=== PATIENT | female | born 1945 | race Caucasian/White ===

== ENCOUNTER → 2019-10-24 10:58 | Outpatient (BNVA) | payer MEDICARE, SELFPAY | PROVIDERS: Family Provider Internal Medicine; PCP Internal Medicine; Visit Provider Otolaryngology | DX: R13.10 Dysphagia, unspecified (principal) | CPT/HCPCS: 99203; 99214 ==

== ENCOUNTER 2019-10-26 09:14 | Outpatient (CLI) | payer MEDICARE, SELFPAY ==
--- NOTE | 2019-10-26 09:34 | FL_ITS ---
WS: [id number] FL barium swallow modifd [id number] REASON FOR EXAM: Oropharyngeal dysphagia FLUOROSCOPY TIME: 2 minutes FINDINGS: Fluoroscopy was performed for speech pathology please see their workup. The barium capsule appeared to hang up at the distal esophageal junction. It finally passed normally. FL/FL barium swallow modifd [id number] IMPRESSION: Fluoroscopy performed for speech pathology.
== END 2019-10-26 09:15 | disposition home or self-care (01) ==
LOC: US 09:18
PROVIDERS: Family Provider Internal Medicine; PCP Internal Medicine; Visit Provider Internal Medicine
DX: R13.12 Dysphagia, oropharyngeal phase (principal)
CPT/HCPCS: 74230; 92611

== ENCOUNTER → 2019-10-30 09:29 | Outpatient (BNVA) | payer MEDICARE, SELFPAY | PROVIDERS: Family Provider Internal Medicine; PCP Internal Medicine; Visit Provider Otolaryngology | DX: R13.10 Dysphagia, unspecified (principal) | CPT/HCPCS: 99213; 99214 ==

== ENCOUNTER 2020-10-20 15:44 | Observation (INO) | payer MEDICARE, SELFPAY ==
[2020-10-20] VITALS (8 sets, daily range): BP systolic 170–220; BP diastolic 60–73; PULSE 61–82; RESP 18–25; O2SAT 94–99; BMI 36.3
--- NOTE | 2020-10-20 15:55 | XRR_ITS ---
PROCEDURE INFORMATION: Exam: XR Chest Exam date and time: 10/20/2020 4:08 PM Age: 75 years old Clinical indication: Chest pain TECHNIQUE: Imaging protocol: XR of the chest Views: 1 view. COMPARISON: [facility] Chest 2 views 08/03/2019 2:15 PM FINDINGS: Lungs: Chronic calcified granuloma at the left lung base stable from prior. No pulmonary consolidation. Pleural spaces: Unremarkable. No pleural effusion. No pneumothorax. Heart/Mediastinum: Mild cardiac enlargement. Prior CABG. Bones/joints: Unremarkable. XR/XR chest 1V portable [id number] IMPRESSION: 1. No acute chest abnormality. 2. No change from comparison on 08/03/2019.
--- NOTE | 2020-10-20 15:55 | ECG_ITS ---
[facility] Test Date: 2020-10-20 Pat Name: Jane Castillo Department: Room: Gender: Female Motor Vehicle Examiner: : 1945 Requested By: Mgiuel Siegel Order Number: [id number] Humaira MD: Meño Conde M.D. Measurements Intervals [place] Rate: 63 P: 69 PA: 212 QRS: 45 QRSD: 144 T: -74 QT: 451 QTc: 464 Interpretive Statements SINUS RHYTHM WITH FIRST DEGREE AV BLOCK RIGHT BUNDLE BRANCH BLOCK [120+ ms QRS DURATION, UPRIGHT V1, 40+ ms S IN I/aVL/V4/V5/V6] SEPTAL MYOCARDIAL INFARCTION , PROBABLY OLD [40+ ms Q WAVE IN V1/V2] MODERATE T-WAVE ABNORMALITY, CONSIDER INFERIOR ISCHEMIA [-0.1+ mV T WAVE IN II/aVF] Compared to ECG 07/01/2019 23:51:05 First degree AV block now present Myocardial infarct finding now present T-wave abnormality now present Possible ischemia now present Right-axis deviation no longer present Electronically Signed On 10-20-2020 16:57:27 CIRCUIT JUDGE by Meño Conde M.D. [id number]
--- NOTE | 2020-10-20 16:10 | W.ED.CHESTPA ---
HPI - Chest Pain General: Chief Complaint: Chest Pain Stated Complaint: Tighness of chest/short of breath Time Seen by Provider: 10/20/20 15:47 Source: patient and family Mode of arrival: ambulatory Limitations: no limitations History of Present Illness: HPI narrative: Patient is a 75-year-old female who presents to the ER with complaint primarily of just not feeling well. She is somewhat anxious and tearful on unable to provide any significant history. She repeatedly states she just has not felt well today. She was recently discharged from [facility] in the middle of last week for what sounds like a run of atrial fibrillation. She had some medication changes and was added on dofetilide. She has not been able to sleep well the last several days that she attributes to starting this new medication and the fact that they stopped her trazodone. Patient does not really endorse any specific chest pain to me per se but states she just does not feel well. She does have some exertional dyspnea and the daughter states that she was very out of breath when walking earlier. She apparently told the daughter that she did not feel well about 45 minutes before arrival. MD complaint: chest heaviness and chest discomfort Pertinent past history: coronary artery disease and CABG Onset (ago): hour(s) (1) Prior episodes: Yes Pain radiation: none Severity: moderate Quality: other (Generally feeling unwell) Exacerbating factors: nothing Context: recent illness and new medications Associated symptoms: Reports dyspnea; Deny abdominal pain, diaphoresis, fever(s), nausea, palpitations, syncope or vomiting Review of Systems General: Reports: 10 or more systems reviewed and unremarkable except in HPI and below Const: Reports: fatigue; Denies: fever(s), malaise or diaphoresis Card: Reports: irregular heart rhythm and dyspnea on exertion; Denies: palpitations or syncope Resp: Reports: dyspnea GI: Denies: abdominal pain, nausea or vomiting Musc: Denies: back pain Skin/Breast: Denies: rash Neuro: Denies: headache(s) or confusion [facility] ED PFSH: Medical History (Updated 10/20/20 @ 20:19 by Miguel Siegel MD) Atrial fibrillation On Eliquis and dofetilide CAD (coronary artery disease) CHF (congestive heart failure), NYHA class I Choking Modified barium swallow normal Diabetes Fatty liver Incisional hernia Sleep apnea Type 2 diabetes mellitus Surgical History (Updated 10/20/20 @ 20:07 by Mason Diop MD) H/O: hysterectomy Endometrial cancer History of appendectomy History of incisional hernia repair (~2016) Hx of CABG S/P CABG x [address] Vaz in [place] 2006 CABG S/P cholecystectomy S/P colonoscopy S/P LASIK surgery of both eyes Family History Other CAD (coronary artery disease) Diabetes Social History Smoking and tobacco status: never smoked Alcohol intake: never Physical Exam Const: COMMON NORMALS: average body habitus, alert and well nourished GENERAL APPEARANCE: cooperative and anxious; not in distress ORIENTATION/CONSCIOUSNESS: Yes awake HENMT: COMMON NORMALS: normocephalic, atraumatic and Normal external nose present HEAD & SCALP: normocephalic and atraumatic NOSE: Normal external nose present MOUTH: Normal oral and palatal mucosa present Eye: COMMON NORMALS: EOMs intact bilaterally and conjunctivae normal CONJUNCTIVA: Yes conjunctivae normal Neck/C-Spine: GENERAL: Yes normal visual inspection, No tracheal deviation and No submandibular swelling Chest: COMMONS NORMALS: normal inspection of the chest Resp: COMMON NORMALS: normal respiratory effort, No retractions and No use of accessory muscles Cardio: COMMON NORMALS: regular rhythm and Peripheral pulses 2+ throughout RHYTHM: regular rhythm PERIPHERAL PULSES: Peripheral pulses 2+ throughout GI: COMMON NORMALS: Normal to inspection, nondistended, normoactive bowel sounds present, Soft to palpation and non-tender PALPATION: Yes Soft to palpation Extremity: COMMON NORMALS: normal to inspection and full ROM Neuro: COMMON NORMALS: no focal motor deficits SENSORIUM/ORIENTATION: Yes alert Skin: COMMON NORMALS: no rashes or lesions noted GENERAL SKIN EXAM: no rashes or lesions noted Course ED course: 75-year-old female who has generalized complaints of feeling unwell. She does admit to having some chest heaviness earlier. She is primarily concerned with some palpitations. Her EKG is sinus rhythm with a first-degree AV block and right bundle branch block. She has not had any visible dysrhythmias on the monitor but has been persistently hypertensive here. She has received 3 doses of hydralazine to try to control her blood pressure but it continues to increase up to the 190s over 60s. She has had some recurrence of chest discomfort while here and states she feels like she can feel her heart throbbing in her chest and ears and fingers. Given her recurrent discomfort, uncontrolled hypertension, we will go ahead and admit for observation. Hospitalist has been consulted. Vital Signs: Vital signs: Vital Signs Pulse Rate 66 10/20/20 18:22 Respiratory Rate 20 H 10/20/20 18:22 Blood Pressure 197/73 10/20/20 18:22 Pulse Oximetry 95 10/20/20 18:22 MDM - Chest Pain Lab Data: Labs: Lab Results 10/20/20 10/20/20 10/20/20 Range/Units 16:09 16:09 16:09 WBC 7.1 (4.0-10.0) 10^3/ uL RBC 4.38 (4.1-5.3) 10^6/u L Hgb 12.2 (11.5-15.3) g/dL Hct 39.0 (37.0-47.0) % MCV 89.0 (81-99) fL MCH 27.9 L (28.0-34.0) pg MCHC 31.3 (30.0-36.0) g/dL RDW 14.4 (12.1-15.1) % Plt Count 394 (130-400) 10^3/c mm MPV 11.2 H (7.4-10.4) fL Neut % (Auto) 57.7 % Lymph % (Auto) 26.8 % Snyder % (Auto) 10.2 % Eos % (Auto) 3.4 % Baso % (Auto) 1.3 % Neut # (Auto) 4.13 (1.8-7.7) 10^3/u L Lymph # (Auto) 1.9 (0.8-4.8) 10^3/u L Snyder # (Auto) 0.7 (0.2-0.9) 10^3/u L Eos # (Auto) 0.2 (0.0-0.8) 10^3/u L Baso # (Auto) 0.1 (0.0-0.1) 10^3/u L Nucleated RBC % (a uto) 0 % Nucleated RBCs # 0.0 /100WBC PT 16.00 H (12.1-14.9) SECO NDS INR 1.24 H (0.8-1.2) APTT 37.2 H (23.9-36.7) SECO NDS Sodium 137 (136-145) mmol/L Potassium 4.6 (3.5-5.1) mmol/L Chloride 93 L (98-107) mmol/L Carbon Dioxide 31 H (22-29) mmol/L Anion Gap 17.6 (5-19) BUN 29 H (8-23) mg/dL Creatinine 1.1 H (0.5-0.9) mg/dL GFR Calculation Not Reportable Glucose 121 H (65-115) mg/dL Calculated Osmolal ity 291 (285-295) mOsm/k g Calcium 10.1 (8.5-10.5) mg/dL Total Bilirubin 0.3 (0.15-1.2) mg/dL AST 20 (0-32) U/L ALT 16 (0-33) U/L Alkaline Phosphata se 59 (35-105) IU/L Troponin T Baselin e (0-10) ng/L NT-Pro-B Natriuret Pep 1772 H (0-450) pg/mL Total Protein 7.4 (6.6-8.7) g/dL Albumin 4.5 (3.5-5.2) g/dL Globulin 2.9 (1.3-4.6) g/dL 10/20/20 Range/Units 16:09 WBC (4.0-10.0) 10^3/ uL RBC (4.1-5.3) 10^6/u L Hgb (11.5-15.3) g/dL Hct (37.0-47.0) % MCV (81-99) fL MCH (28.0-34.0) pg MCHC (30.0-36.0) g/dL RDW (12.1-15.1) % Plt Count (130-400) 10^3/c mm MPV (7.4-10.4) fL Neut % (Auto) % Lymph % (Auto) % Snyder % (Auto) % Eos % (Auto) % Baso % (Auto) % Neut # (Auto) (1.8-7.7) 10^3/u L Lymph # (Auto) (0.8-4.8) 10^3/u L Snyder # (Auto) (0.2-0.9) 10^3/u L Eos # (Auto) (0.0-0.8) 10^3/u L Baso # (Auto) (0.0-0.1) 10^3/u L Nucleated RBC % (a uto) % Nucleated RBCs # /100WBC PT (12.1-14.9) SECO NDS INR (0.8-1.2) APTT (23.9-36.7) SECO NDS Sodium (136-145) mmol/L Potassium (3.5-5.1) mmol/L Chloride (98-107) mmol/L Carbon Dioxide (22-29) mmol/L Anion Gap (5-19) BUN (8-23) mg/dL Creatinine (0.5-0.9) mg/dL GFR Calculation Glucose (65-115) mg/dL Calculated Osmolal ity (285-295) mOsm/k g Calcium (8.5-10.5) mg/dL Total Bilirubin (0.15-1.2) mg/dL AST (0-32) U/L ALT (0-33) U/L Alkaline Phosphata se (35-105) IU/L Troponin T Baselin e 28 H (0-10) ng/L NT-Pro-B Natriuret Pep (0-450) pg/mL Total Protein (6.6-8.7) g/dL Albumin (3.5-5.2) g/dL Globulin (1.3-4.6) g/dL EKG Data^: EKG 1: EKG interpretation date: 10/20/20 EKG interpretation time: 15:55 Other EKG comments: Sinus rhythm with first-degree AV block. Right bundle branch block noted. No ST elevation or depressions. Inverted T waves in lateral precordial leads. Discharge Plan Discharge Patient Disposition: Placed in Observation Clinical Impression: Hypertensive urgency Chest pain Qualifiers: Chest pain type: unspecified Qualified Code(s): R07.9 - Chest pain, unspecified Coding Level of Care Code ED Coat Operator for [facility] Fwd Exam Comprehensive
[2020-10-20 16:56] LABS: INR 1.24 (0.8-1.2)
[2020-10-20 16:57] LABS: Partial Thromboplastin Time 37.2 SECONDS (23.9-36.7)
[2020-10-20] MEDS: hyDRALAzine 20 mg/mL INJ 1 mL 10 MG IVP (17:00)
[2020-10-20 17:02] LABS: Troponin(5th) Baseline 28 ng/L (0-10)
[2020-10-20 17:07] LABS: Basophils # 0.1 10^3/uL (0.0-0.1); Basophils % 1.3 %; Eosinophils # 0.2 10^3/uL (0.0-0.8); Eosinophils % 3.4 %; Hemoglobin 12.2 g/dL (11.5-15.3); Lymphocytes # 1.9 10^3/uL (0.8-4.8); Lymphocytes % 26.8 %; Mean Corpuscular HGB Conc 31.3 g/dL (30.0-36.0); Mean Corpuscular Hemoglobin 27.9 pg (28.0-34.0); Mean Platelet Volume 11.2 fL (7.4-10.4); Monocytes # 0.7 10^3/uL (0.2-0.9); Monocytes % 10.2 %; Neutrophils # 4.13 10^3/uL (1.8-7.7); Neutrophils % 57.7 %; Nucleated Red Blood Cells % 0 %; Platelet Count 394 10^3/cmm (130-400); Red Blood Count 4.38 10^6/uL (4.1-5.3); Red Cell Distribution Width 14.4 % (12.1-15.1); White Blood Count 7.1 10^3/uL (4.0-10.0)
[2020-10-20 17:08] LABS: Alanine Aminotransferase 16 U/L (0-33); Albumin Level 4.5 g/dL (3.5-5.2); Alkaline Phosphatase 59 IU/L (35-105); Anion Gap 17.6 (5-19); Aspartate Amino Transferase 20 U/L (0-32); Blood Urea Nitrogen 29 mg/dL (8-23); Calcium 10.1 mg/dL (8.5-10.5); Carbon Dioxide 31 mmol/L (22-29); Chloride 93 mmol/L (98-107); Creatinine Clr Calc Pharmacy 45.4474; Globulin 2.9 g/dL (1.3-4.6); Glucose 121 mg/dL (65-115); NT Pro B Type Natriuretic Pept 1772 pg/mL (0-450); Osmolality Calculated 291 mOsm/kg (285-295); Potassium 4.6 mmol/L (3.5-5.1); Sodium 137 mmol/L (136-145); Total Bilirubin 0.3 mg/dL (0.15-1.2); Total Protein 7.4 g/dL (6.6-8.7)
--- NOTE | 2020-10-20 17:55 | ECG_ITS ---
[facility] Test Date: 2020-10-20 Pat Name: Jane Castillo Department: Room: Gender: Female Pond Worker: : 1945 Requested By: Miguel Siegel Order Number: [id number] Humaira MD: Meño Conde M.D. Measurements Intervals [place] Rate: 66 P: 75 CO: 214 QRS: 60 QRSD: 141 T: -72 QT: 458 QTc: 483 Interpretive Statements SINUS RHYTHM WITH FIRST DEGREE AV BLOCK RIGHT BUNDLE BRANCH BLOCK [120+ ms QRS DURATION, UPRIGHT V1, 40+ ms S IN I/aVL/V4/V5/V6] SEPTAL MYOCARDIAL INFARCTION , PROBABLY OLD [40+ ms Q WAVE IN V1/V2] MODERATE T-WAVE ABNORMALITY, CONSIDER INFERIOR ISCHEMIA [-0.1+ mV T WAVE IN II/aVF] Compared to ECG 10/20/2020 15:52:48 No significant changes Electronically Signed On 10-21-2020 19:01:59 MILLER KILN DRIED SALT by Meño Conde M.D. [id number]
[2020-10-20] MEDS: hyDRALAzine 20 mg/mL INJ 1 mL IVP ×2 (18:20→20:15)
--- NOTE | 2020-10-20 19:49 | PM.HP ---
Providers/Chief Complaint Primary Care Provider: Jermaine Roca DO Chief Complaint: Tighness of chest/short of breath History of Present Illness Jane Castillo is a 75 year old female with history of paroxysmal A. fib, hypothyroidism, was recently discharged from [facility] after management A. fib RVR, she was started on dofetilide, presented today with chief complaint of chest discomfort. Patient is stating that she was recently discharged from the hospital on , reporting transesophageal echo before cardioversion, she was asked to return to the hospital if she goes back into A. fib with RVR for possible ablation. Today when she checked her pulse before going to bed it was 60 and then gradually it got worse which made her very anxious. This made her very jittery as well. She was just not feeling comfortable at home and decided to come to the hospital for the evaluation. She also noticed substernal pain which she describing as burning sensation which lasted for about few minutes and resolved on its own she is denying orthopnea, PND, shortness of breath, nausea, vomiting or radiation of pain. She is very sensitive and able to tell when her heart rate goes above 100, she is also endorsing palpitations. She has been compliant with her medications. Diagnostics in the ER revealed normal CBC, stable hemoglobin, BMP revealed TRISTEN BNP 1800, EKG showing sinus rhythm and first-degree AV block incomplete right bundle branch block no ischemic or infarct changes, in the ER she was hypertensive systolic blood pressure above 180 she was given 50 mg of hydralazine, patient has been complaining of generalized body weakness and intermittent chest pain. Chest x-ray unremarkable, she saturating well on room air, troponin XX 8, second hour troponin is pending Review of Systems Const: Reports: body aches and fatigue; Denies: fever(s) or chills Eyes: Denies: change in vision ENMT: Denies: throat pain Card: Reports: chest pain and dyspnea on exertion; Denies: swelling of feet/ankles or orthopnea Resp: Reports: dyspnea; Denies: non-productive cough GI: Denies: abdominal pain : Denies: flank pain Musc: Denies: neck pain Skin/Breast: Denies: rash Neuro: Denies: headache(s) Psych: Reports: anxiety Endo: Denies: polyuria Jose L/Lymph: Denies: easy bruising All/Imm: Denies: urticaria Medications/Allergies Home Medications Medication Instructions Recorded Confirmed Last Taken Type cyanocobalamin (vitamin B-12) 1,000 mcg PO DAILY@0900 10/24/19 10/20/20 10/20/20 History 1,000 mcg capsule furosemide 40 mg tablet 40 mg PO BID@0900,209910/24/19 10/20/20 10/20/20 History insulin glargine U-300 conc 300 15 unit SUBCUT DAILY 10/24/19 10/20/20 10/19/20 History unit/mL (3 mL) subcutaneous pen insulin lispro 100 unit/mL 5 unit SUBCUT TID 10/24/19 10/20/20 10/20/20 History subcutaneous pen isosorbide mononitrate 30 mg 60 mg PO BID@0900,209910/24/19 10/20/20 10/20/20 History tablet,extended release 24 hr levothyroxine 137 mcg capsule 137 mcg PO DAILY@0530 10/24/19 10/20/20 10/20/20 History losartan 100 mg tablet 100 mg PO DAILY@0900 10/24/19 10/20/20 10/20/20 History metformin 1,000 mg tablet 1,000 mg PO BID@0900,209910/24/19 10/20/20 10/20/20 History simvastatin 10 mg tablet 10 mg PO DAILY@1700 10/24/19 10/20/20 10/19/20 History apixaban [Eliquis] 5 mg PO BID@0900,209910/20/20 10/20/20 10/20/20 History bisacodyl 5 mg PO DAILY PRN 10/20/20 10/20/20 Unknown History diphenhydramine HCl 25 mg PO Q6H PRN 10/20/20 10/20/20 Unknown History dofetilide 250 mcg PO Q12H 10/20/20 10/20/20 10/20/20 History fenofibrate nanocrystallized 48 mg PO DAILY@209910/20/20 10/20/20 10/19/20 History [Tricor] magnesium oxide 400 mg PO DAILY@0900 10/20/20 10/20/20 10/20/20 History metoprolol tartrate 25 mg PO BID@0900,209910/20/20 10/20/20 10/20/20 History nitroglycerin 0.4 mg SUBLINGUAL Q5M PRN 10/20/20 10/20/20 Unknown History vitamin E 400 unit PO DAILY@0900 10/20/20 10/20/20 10/20/20 History Allergies Allergy/AdvReac Type Severity Reaction Status Date / Time hydromorphone [From Dilaudid] Allergy Severe ADR-Halluci Verified 09/13/20 11:05 nating sulfamethoxazole Allergy Hughes Verified 09/13/20 11:05 [From Bactrim] Jose syndrome trimethoprim [From Bactrim] Allergy Hughes Verified 09/13/20 11:05 Jose syndrome PFSH Acute PFSH: Medical History Atrial fibrillation On Eliquis and dofetilide CAD (coronary artery disease) CHF (congestive heart failure), NYHA class I Choking Modified barium swallow normal Diabetes Fatty liver Incisional hernia Sleep apnea Type 2 diabetes mellitus Surgical History H/O: hysterectomy Endometrial cancer History of appendectomy History of incisional hernia repair (~2015) Hx of CABG S/P CABG x [address] Vaz in [place] 2005 CABG S/P cholecystectomy S/P colonoscopy S/P LASIK surgery of both eyes Family History Other CAD (coronary artery disease) Diabetes Social History Smoking and tobacco status: never smoked Alcohol intake: never Vitals/I&O/Wt Last Vital Signs Pulse 66 10/20/20 18:22 Resp 20 H 10/20/20 18:22 BP 197/73 10/20/20 18:22 Pulse Ox 95 10/20/20 18:22 Weight last 48 hrs Weight 90.265 kg Physical Exam Narrative: EXAM NARRATIVE: elderly female who was sitting in the chair when entered the room was saturating well on room air Heart rate 90 sinus rhythm No active discomfort or distress Patient was very emotional and tearful and seemed anxious Was able to mention above HPI S1, S2 sinus rhythm no murmur appreciated Abdomen soft, distended central obesity bowel sounds sluggish Low symmetry no edema gangrene ulcer No acute respite distress EOMI, PERRLA No neurological deficit Data : 10/20/20 16:09 10/20/20 16:09 A&P Assessment and plan (1) Angina at rest: Status: Acute (2) Hypertensive urgency: Status: Acute (3) TRISTEN (acute kidney injury): Status: Acute Additional A&P Information Hypertensive urgency Improved with hydralazine 50 mg total dosage in the ER For her tachycardia and hypertension would recommend labetalol if needed overnight Mean arterial pressure reduction 15% in next 18 to 20 hours I would continue her antihypertensive regimen of losartan, Imdur, along metoprolol and Lasix and would use labetalol for as needed use Atypical chest pain Patient is describing her chest discomfort as burning sensation which are associated with palpitations and resolved on its own Troponin XX 8 no EKG changes of ischemia or infarction, her rhythm is sinus Serial troponin and compliance monitor on cardiac stepdown unit We will request D-dimer however she has been compliant with Eliquis TRISTEN Mild TRISTEN which I think is secondary to hypertensive nephropathy Continue home regimen of losartan for now and if her creatinine is worsening would recommend holding ARB's No signs of UTI Type 2 diabetes: Consistent carb diet, moderate sliding scale, Hypothyroidism: Check TSH and magnesium level continue levothyroxine 137 mcg Full code Consistent carb diet DVT prophylaxis not needed she is on Eliquis A. fib without RVR: Continue dofetilide, metoprolol along Eliquis, she was recommended cardiac ablation for recurrent A. fib RVR with symptoms Attestations Medical Necessity Statement*: Anticipating discharge in less than 48 hours continued overnight monitoring because of hypertensive urgency, atypical chest pain, palpitations Time Spent in Patient Care: (>than 50% of time spent in counselling and/or direct pt care on unit). 45mins Coding Level of Care Code Acute Demonstrator Sewing Techniques for Chg Fwd Diagnoses Angina at rest I20.8 Hypertensive urgency I16.0 TRISTEN (acute kidney injury) N17.9
[2020-10-20 20:39] LABS: Troponin 5 2HR 29.27 ng/L (0-10); Troponin 5 2HR Delta 1.27 ABS# (0-10)
[2020-10-20] MEDS: apixaban 5 mg Tablet PO (22:18)
[2020-10-20] MEDS: metoprolol tartrate 25 mg Tablet PO (22:18)
[2020-10-20] MEDS: labetalol 5 mg/mL SDV 20mL 10 MG IVP (22:19)
[2020-10-20 22:34] LABS: Thyroid Stimulating Hormone 9.76 uIU/mL (0.27-4.20)
[2020-10-20 22:37] LABS: Glucose Point of Care 199 mg/dL (70-110)
[2020-10-21] VITALS (55 sets, daily range): BP systolic 147–173; BP diastolic 55–87; PULSE 60–80; RESP 12–24; TEMP 36.7–37.3; O2SAT 80–98
[2020-10-21 03:47] LABS: Troponin 5 6HR 50.41 ng/L (0-10)
[2020-10-21] MEDS: levothyroxine 25 mcg Tablet PO (05:29)
[2020-10-21] MEDS: levothyroxine 112 mcg Tablet PO (05:29)
[2020-10-21 06:05] LABS: Anion Gap 17.8 (5-19); Blood Urea Nitrogen 28 mg/dL (8-23); Calcium 9.2 mg/dL (8.5-10.5); Carbon Dioxide 25 mmol/L (22-29); Chloride 98 mmol/L (98-107); Creatinine Clr Calc Pharmacy 49.7452; Glucose 143 mg/dL (65-115); Osmolality Calculated 292 mOsm/kg (285-295); Potassium 3.8 mmol/L (3.5-5.1); Sodium 137 mmol/L (136-145)
[2020-10-21 06:41] LABS: Glucose Point of Care 159 mg/dL (70-110)
--- NOTE | 2020-10-21 07:58 | ECG_ITS ---
[facility] Test Date: 2020-10-21 Pat Name: Jane Castillo Department: Room: 105 Gender: Female Cutting Machine Tender: : 1945 Requested By: Delfino Martinez Order Number: [id number] Humaira MD: Meño Conde M.D. Measurements Intervals [place] Rate: 72 P: 40 CT: 221 QRS: 79 QRSD: 140 T: -64 QT: 455 QTc: 498 Interpretive Statements SINUS RHYTHM WITH FIRST DEGREE AV BLOCK RIGHT BUNDLE BRANCH BLOCK [120+ ms QRS DURATION, UPRIGHT V1, 40+ ms S IN I/aVL/V4/V5/V6] SEPTAL MYOCARDIAL INFARCTION [40+ ms Q WAVE IN V1/V2], OF INDETERMINATE AGE MODERATE T-WAVE ABNORMALITY, CONSIDER LATERAL ISCHEMIA [-0.1+ mV T WAVE IN I/aVL/V5/V6] MODERATE T-WAVE ABNORMALITY, CONSIDER INFERIOR ISCHEMIA [-0.1+ mV T WAVE IN II/aVF] Compared to ECG 10/20/2020 18:02:01 No significant changes Electronically Signed On 10-21-2020 19:00:54 RESIDENCE LIFE COORDINATOR by Meño Conde M.D. [id number]
[2020-10-21] MEDS: FUROsemide 40 mg Tablet PO (09:07)
[2020-10-21] MEDS: apixaban 5 mg Tablet PO (09:07)
[2020-10-21] MEDS: metoprolol tartrate 25 mg Tablet PO (09:07)
[2020-10-21] MEDS: losartan 50 mg Tablet 100 MG PO (09:07)
[2020-10-21] MEDS: magnesium oxide 400 mg tablet PO (09:07)
[2020-10-21] MEDS: isosorbide mononitrate ER 60 mg Tablet PO (09:07)
--- NOTE | 2020-10-21 09:11 | PC.NURSE ---
patient home dofetilide administered per dr. donato.
--- NOTE | 2020-10-21 09:24 | PC.CHAP ---
Pastoral Care Encounter/Spiritual Assessment Type of Contact [] Declined genetics teacher visit [] Patient/Family/Request visit [] Outpatient visit [] Follow-up visit [] Physician referral [] Code/Alert [x] Routine visit [] Staff referral [] Actively dying [] Patient sleeping [] Family support [] [] Out of room [] Palliative care [] [] Receiving care in room [] Pre-surgical visit [] Trauma [] Long length of stay [] ICU visit [] Other: Relational/Emotional Strength [] Patient feels connected with others/family/visitors/staff [] Distress [] Loneliness/isolation [] Abandonment Spirituality of Patient [x] Person of Allison [] Attends Taoist of their Allison [] Believes in Prayer [] Reads Bible or Nondenominational materials [] There are Spiritual issues to be addressed Informatics Pharmacist Interventions [x] Prayer [x] Active listening [x] Non-anxious presence [x] Spiritual/emotional support [] Crisis/trauma care [] Spiritual counseling [] Bereavement support [] Provided bereavement packet [] Provided Bible/devotional materials [] Provided toy/stuffed animal, coloring book to patient or family member [] Provided Communion [] Anointing/[place] [] Salvation [x] Completed spiritual assessment [] Other: Impact on Illness or Injury [] Angry [] Fearful [] Anxious [] Often cries [] Exhaustion [] Unable to work [] Unable to attend scientology [] Unable to walk/stand [] Unable to read [] Unable to drive [] Unable to eat/drink [] Unable to sleep [] Unable to be with family [] Patient intubated [] Other: Summary pain is much softer... patient feeling much better today Time spent with patient 10 min
[2020-10-21 10:58] LABS: Glucose Point of Care 274 mg/dL (70-110)
--- NOTE | 2020-10-21 15:25 | P.DS_ITS ---
Discharge Providers Date of Admission: 10/20/20 21:41 Date of Discharge: October 21, 2020 Attending Provider at Admission: Mason Diop MD Attending Provider at Discharge: Delfino Martinez MD Primary Care Provider: Jermaine Roca DO Diagnoses at Discharge Discharge Diagnosis (1) Hypertensive urgency: Status: Resolved (2) Atypical chest pain: Status: Resolved Reason for Visit Reason for Visit: Tighness of chest/short of breath Hospital Course Hospital Course 75 year old female with history of paroxysmal A. fib, hypothyroidism, was recently discharged from [facility] after management A. fib RVR, she was started on dofetilide, presented today with chief complaint of chest discomfort.Patient is stating that she was recently discharged from the hospital on , reporting transesophageal echo before cardioversion, she was asked to return to the hospital if she goes back into A. fib with RVR for possible ablation. Today when she checked her pulse before going to bed it was 60 and then gradually it got worse which made her very anxious. This made her very jittery as well. She was just not feeling comfortable at home and decided to come to the hospital for the evaluation. She also noticed substernal pain which she describing as burning sensation which lasted for about few minutes and resolved on its own she is denying orthopnea, PND, shortness of breath, nausea, vomiting or radiation of pain.She is very sensitive and able to tell when her heart rate goes above 100, she is also endorsing palpitations. She has been compliant with her medications. Diagnostics in the ER revealed normal CBC, stable hemoglobin, BMP revealed TRISTEN BNP 1800, EKG showing sinus rhythm and first-degree AV block incomplete right bundle branch block no ischemic or infarct changes, in the ER she was hypertensive systolic blood pressure above 180 she was given 50 mg of hydralazine, patient has been complaining of generalized body weakness and intermittent chest pain. Chest x-ray unremarkable, she saturating well on room air, troponin without significant delta.Chest pain is likely atpical. She was in NSR with controlled HR.She was continued on dofetide as well as metoprolol. She was managed for hypertensive urgency, amlodipine 5 mg po daily was added to her existing anti htn medications.Patient want to continue to follow in [facility].She has an appointment on coming . She responded well the medical management and was discharged in stable conditions. Physical Exam Const: COMMON NORMALS: patient oriented x3 HENMT: COMMON NORMALS: normocephalic and atraumatic HEAD & SCALP: normocephalic and atraumatic Chest: COMMONS NORMALS: normal inspection of the chest and normal palpation of entire chest wall CHEST: Yes Symmetrical chest wall rise Resp: COMMON NORMALS: normal respiratory effort, No retractions, No use of accessory muscles and clear to auscultation bilaterally EFFORT & INSPECTION: Yes symmetric chest movement AUSCULTATION: clear to auscultation bilaterally Cardio: COMMON NORMALS: regular rate, regular rhythm, S1 normal heart sound present, S2 normal heart sound present, No gallops present (Cardio), No murmurs present (Cardio), No rub (Cardio) and Peripheral pulses 2+ throughout RATE: regular rate RHYTHM: regular rhythm HEART SOUNDS: S1 normal heart sound present and S2 normal heart sound present PERIPHERAL PULSES: Peripheral pulses 2+ throughout GI: COMMON NORMALS: Normal to inspection, nondistended, normoactive bowel sounds present, Soft to palpation, non-tender, No hepatosplenomegaly present and no masses AUSCULTATION: Yes normoactive bowel sounds PALPATION: Yes Soft to palpation and Yes No hepatosplenomegaly present RECTAL EXAM: deferred Extremity: COMMON NORMALS: no clubbing, cyanosis or edema and no pedal edema Neuro: COMMON NORMALS: patient oriented x3 Discharge Data Data Completed and Pending: Completed Studies During Hospitalization Category Date Time Status XR chest 1V otis ble [id number] Stat Exams 10/20/20 15:55 Completed Labs from last 24 hours 10/21/20 10/21/20 10/21/20 10:29 06:30 04:09 WBC RBC Hgb Hct MCV MCH MCHC RDW Plt Count MPV Neut % (Auto) Lymph % (Auto) Bacon % (Auto) Eos % (Auto) Baso % (Auto) Neut # (Auto) Lymph # (Auto) [place] # (Auto) Eos # (Auto) Baso # (Auto) Nucleated RBC % (a uto) Nucleated RBCs # PT INR APTT D-Dimer Sodium 137 Potassium 3.8 Chloride 98 Carbon Dioxide 25 Anion Gap 17.8 BUN 28 H Creatinine 1.0 H GFR Calculation Not Reportable Glucose 143 H POC Glucose 274 H 159 H Calculated Osmolal ity 292 Calcium 9.2 Magnesium 2.0 Total Bilirubin AST ALT Alkaline Phosphata se Troponin T Baselin e Troponin T 120 Min [place] Delta Troponin T Troponin T Hi Sens 6Hr Troponin T Hi Sens 6Hr Delta NT-Pro-B Natriuret Pep Total Protein Albumin Globulin TSH 10/21/20 10/20/20 10/20/20 01:53 22:21 19:12 WBC RBC Hgb Hct MCV MCH MCHC RDW Plt Count MPV Neut % (Auto) Lymph % (Auto) [place] % (Auto) Eos % (Auto) Baso % (Auto) Neut # (Auto) Lymph # (Auto) [place] # (Auto) Eos # (Auto) Baso # (Auto) Nucleated RBC % (a uto) Nucleated RBCs # PT INR APTT D-Dimer Sodium Potassium Chloride Carbon Dioxide Anion Gap BUN Creatinine GFR Calculation Glucose POC Glucose 199 H Calculated Osmolal ity Calcium Magnesium Total Bilirubin AST ALT Alkaline Phosphata se Troponin T Baselin e Troponin T 120 Min [place] Delta Troponin T Troponin T Hi Sens 6Hr 50.41 H Troponin T Hi Sens 6Hr Delta Not Reportable NT-Pro-B Natriuret Pep Total Protein Albumin Globulin TSH 9.76 H 10/20/20 10/20/20 10/20/20 19:12 16:09 16:09 WBC RBC Hgb Hct MCV MCH MCHC RDW Plt Count MPV Neut % (Auto) Lymph % (Auto) [place] % (Auto) Eos % (Auto) Baso % (Auto) Neut # (Auto) Lymph # (Auto) [place] # (Auto) Eos # (Auto) Baso # (Auto) Nucleated RBC % (a uto) Nucleated RBCs # PT INR APTT D-Dimer 0.50 Sodium Potassium Chloride Carbon Dioxide Anion Gap BUN Creatinine GFR Calculation Glucose POC Glucose Calculated Osmolal ity Calcium Magnesium Total Bilirubin AST ALT Alkaline Phosphata se Troponin T Baselin e 28 H Troponin T 120 Min [place] 29.27 H Delta Troponin T 1.27 Troponin T Hi Sens 6Hr Troponin T Hi Sens 6Hr Delta NT-Pro-B Natriuret Pep Total Protein Albumin Globulin TSH 10/20/20 10/20/20 10/20/20 16:09 16:09 16:09 WBC 7.1 RBC 4.38 Hgb 12.2 Hct 39.0 MCV 89.0 MCH 27.9 L MCHC 31.3 RDW 14.4 Plt Count 394 MPV 11.2 H Neut % (Auto) 57.7 Lymph % (Auto) 26.8 Bacon % (Auto) 10.2 Eos % (Auto) 3.4 Baso % (Auto) 1.3 Neut # (Auto) 4.13 Lymph # (Auto) 1.9 Bacon # (Auto) 0.7 Eos # (Auto) 0.2 Baso # (Auto) 0.1 Nucleated RBC % (a uto) 0 Nucleated RBCs # 0.0 PT 16.00 H INR 1.24 H APTT 37.2 H D-Dimer Sodium 137 Potassium 4.6 Chloride 93 L Carbon Dioxide 31 H Anion Gap 17.6 BUN 29 H Creatinine 1.1 H GFR Calculation Not Reportable Glucose 121 H POC Glucose Calculated Osmolal ity 291 Calcium 10.1 Magnesium Total Bilirubin 0.3 AST 20 ALT 16 Alkaline Phosphata se 59 Troponin T Baselin e Troponin T 120 Min [place] Delta Troponin T Troponin T Hi Sens 6Hr Troponin T Hi Sens 6Hr Delta NT-Pro-B Natriuret Pep 1772 H Total Protein 7.4 Albumin 4.5 Globulin 2.9 TSH Vitals: Last Vital Signs Temp 99.1 F 10/21/20 11:38 Pulse 62 10/21/20 11:38 Resp 18 10/21/20 11:38 BP 155/57 10/21/20 11:38 Pulse Ox 93 10/21/20 11:38 Discharge Plan Discharge Patient Disposition: Home Condition: Stable Prescriptions: New amlodipine 5 mg tablet 5 mg PO DAILY Qty: 30 RF: 0 Continued simvastatin 10 mg tablet 10 mg PO DAILY@1700 RF: 0 furosemide 40 mg tablet 40 mg PO BID@899,2099 RF: 0 cyanocobalamin (vitamin B-12) 1,000 mcg capsule 1,000 mcg PO DAILY@0900 RF: 0 isosorbide mononitrate 30 mg tablet extended release 24 hr 60 mg PO BID@09,2100 RF: 0 losartan 100 mg tablet 100 mg PO DAILY@0900 RF: 0 levothyroxine 137 mcg capsule 137 mcg PO DAILY@0530 RF: 0 metformin 1,000 mg tablet 1,000 mg PO BID@0900,2100 RF: 0 insulin lispro [Admelog SoloStar U-100 Insulin] 100 unit/mL insulin pen 5 unit SUBCUT TID RF: 0 Toujeo Max U-300 SoloStar 300 unit/mL (3 mL) insulin pen 15 unit SUBCUT DAILY RF: 0 dofetilide 250 mcg Capsule 250 mcg PO Q12H RF: 0 magnesium oxide 400 mg (241.3 mg magnesium) Tablet 400 mg PO DAILY@0900 RF: 0 diphenhydramine HCl 25 mg Tablet 25 mg PO Q6H PRN (Reason: ITICHING) RF: 0 nitroglycerin 0.4 mg Tablet, Sublingual 0.4 mg SUBLINGUAL Q5M PRN (Reason: CHEST PAINS) RF: 0 bisacodyl 5 mg Tablet,Delayed Release (Dr/Ec) 5 mg PO DAILY PRN (Reason: Constipation) RF: 0 vitamin E 400 unit Capsule 400 unit PO DAILY@0900 RF: 0 metoprolol tartrate 25 mg tablet 25 mg PO BID@0900,2100 RF: 0 Tricor 48 mg Tablet 48 mg PO DAILY@2100 RF: 0 Eliquis 5 mg tablet 5 mg PO BID@0900,2100 RF: 0 Discharge Orders: Discharge Order (Routine); Ordered 10/21/20 Ordered By: Delfino Martinez Referrals: Jermaine Roca, [Primary Care Provider] - 4-7 days (Please follow-up with Dr. Roca on Wednesday, at 2:45P.M. If you have any questions or need to rechedule. Please call ) Patient Instructions: Amlodipine (By mouth), Acute Kidney Injury (DC), Hypertensive Crisis (DC), Chest Pain Stoplight Discharge Attestations Time Spent in Discharge Care*: less than 30 min Specific Discharge Activities: educating patient, educating and/or supporting family/caregiver, discussing with sample case porter/social workers/dc planners, documenting/other paperwork and evaluating patient/reviewing data Status at Discharge: Cognitive status at discharge: cognitively intact , Behavioral status at discharge: cooperative , Functional status at discharge: independent ambulation Overall status at discharge: patient is back to baseline Quality Metrics Clinical Quality Measures During this hospital stay, did patient experience: None Coding Level of Care Code Acute Cloth Winder for Chg Fwd Diagnoses Hypertensive urgency I16.0 Atypical chest pain R07.89
== END 2020-10-21 12:14 | disposition home or self-care (01) ==
LOC: ER 20:19 → CSU 10-21 06:02
PROVIDERS: Admitting Provider Internal Medicine; Emergency Provider Student in an Organized Health Care Education/Training Program; Family Provider Internal Medicine; PCP Internal Medicine; Visit Provider Internal Medicine
DX: I25.118 Atherosclerotic heart disease of native coronary artery with other forms of angina pectoris (principal); I44.0 Atrioventricular block, first degree; I16.0 Hypertensive urgency; R07.89 Other chest pain; I48.0 Paroxysmal atrial fibrillation; E03.9 Hypothyroidism, unspecified; I50.9 Heart failure, unspecified; E11.9 Type 2 diabetes mellitus without complications; Z79.4 Long term (current) use of insulin; G47.30 Sleep apnea, unspecified; Z95.1 Presence of aortocoronary bypass graft; N17.9 Acute kidney failure, unspecified
CPT/HCPCS: 12345; 36415; 36416; 71045; 80048; 80053; 82962; 83735; 83880; 84443; 84484; 85025; 85378; 85610; 85730; 93005; 94660; 96372; 96374; 96375; 96376; 99285; G0378; J0360; J1815; J3490

== ENCOUNTER 2021-05-05 09:58 | Inpatient (IN) | payer MEDICARE, SELFPAY ==
[2021-05-05] VITALS (16 sets, daily range): BP systolic 117–167; BP diastolic 68–96; PULSE 73–99; RESP 16–24; TEMP 36.6–37.2; O2SAT 93–99; BMI 34.5
--- NOTE | 2021-05-05 10:20 | ECG_ITS ---
[facility] Test Date: 2021-05-05 Pat Name: Jane Castillo Department: Room: Gender: Female American Sign Language Interpreter: : 1945 Requested By: Ashok Patricio Order Number: [id number] Humaira MD: Lisa Blackmon M.D. Measurements Intervals [place] Rate: 72 P: MD: QRS: 82 QRSD: 144 T: -21 QT: 405 QTc: 445 Interpretive Statements ATRIAL FIBRILLATION RIGHT BUNDLE BRANCH BLOCK MODERATE T-WAVE ABNORMALITY, CONSIDER INFERIOR ISCHEMIA Compared to ECG 10/21/2020 08:26:43 Sinus rhythm no longer present First degree AV block no longer present Myocardial infarct finding no longer present T-wave abnormality still present Possible ischemia still present Electronically Signed On 05-05-2021 19:10:24 CDT by Lisa Blackmon M.D. [email or web address]
--- NOTE | 2021-05-05 10:20 | XR_ITS ---
WS: [id number] XR chest 1V portable [id number] REASON FOR EXAM: dyspnea/cough FINDINGS: Status post sternotomy and coronary artery bypass surgery. The heart is enlarged. Calcified granulomatous disease in both hemithoraces. Compared to previous examination of 10/20/2020 there is a subtle reticular nodular infiltrative patter n in the lower right lung. No other interval change noted. XR/XR chest 1V portable [id number] IMPRESSION: Cardiomegaly. Subtle infiltrative change in the lower right lung, chronicity unknown. Compati ble with acute or subacute pneumonitis.
--- NOTE | 2021-05-05 10:20 | ED_ITS ---
HPI - Weakness General: Chief complaint: Weakness Stated complaint: WEAKNESS Time Seen by Provider: 05/05/21 10:02 History of Present Illness: HPI Narrative: 75-year-old female presents emergency room via EMS. She took couple muscle relaxers yesterday late aft ernoon and this morning when she woke upShe is confused and disoriented. On arrival here she can answer questions but she continually is very anxious at times hyperventilating. MD Complaint: generalized weakness and difficulty walking Onset (ago): hour(s) Duration: constant Location: generalized Severity: moderate Quality: numbness Relieving factors: none Exacerbating factors: none Associated symptoms: Denies chest pain, chills, confusion, melena, decreased appetite, diaphoresis, dysuria, easy bruising, fever(s), headache(s), myalgias, nausea, rash, short of breath, syncope or vomiting Review of Systems Const: Denies: fever(s), chills or diaphoresis ENMT: Denies: throat pain, ear or mastoid pain, nasal discharge or nasal congestion Card: Denies: chest pain or syncope Resp: Denies: dyspnea, productive cough or non-productive cough GI: Denies: nausea, vomiting or melena : Denies: dysuria Skin/Breast: Denies: rash or pruritus Neuro: Denies: headache(s) or confusion Jose L/Lymph: Denies: easy bruising PFS ED PFSH: Medical History (Updated 05/06/21 @ 12:52 by Ashok Javier DO) TRISTEN (acute kidney injury) Angina at rest Atrial fibrillation On Eliquis and dofetilide CAD (coronary artery disease) Chest pain CHF (congestive heart failure), NYHA class I Choking Modified barium swallow normal Diabetes Fatty liver Hypertensive urgency Hypertensive urgency Incisional hernia Sleep apnea Type 2 diabetes mellitus Surgical History H/O: hysterectomy Endometrial cancer History of appendectomy History of incisional hernia repair (~2015) Hx of CABG S/P CABG x [address] Vaz in [place] 2006 CABG S/P cholecystectomy S/P colonoscopy S/P LASIK surgery of both eyes Family History Other CAD (coronary artery disease) Diabetes Social History Smoking and tobacco status: never smoked Alcohol intake: never Female Reproductive History: Date of last menstrual period: 10/20/20 Physical Exam Const: COMMON NORMALS: no acute distress GENERAL APPEARANCE: cooperative and comfortable ORIENTATION/CONSCIOUSNESS: Yes awake, Yes oriented to person, Yes oriented to place and Yes oriented to time HENMT: COMMON NORMALS: normocephalic, atraumatic and hearing grossly normal bilaterally HEAD & SCALP: normocephalic and atraumatic Eye: COMMON NORMALS: Equal, round and reactive pupils present, EOMs intact bilaterally, conjunctivae normal and no scleral icterus CONJUNCTIVA: Yes conjunctivae normal PUPIL: Yes Equal, round and reactive pupils present Neck/C-Spine: COMMON NORMALS: full ROM, no lymphadenopathy, supple and no JVD Resp: COMMON NORMALS: normal respiratory effort, No retractions, No use of accessory muscles and clear to auscultation bilaterally AUSCULTATION: clear to auscultation bilaterally Cardio: COMMON NORMALS: no JVD, regular rate, regular rhythm and No murmurs present (Cardio) RATE: regular rate RHYTHM: regular rhythm GI: COMMON NORMALS: Soft to palpation and No hepatosplenomegaly present AUSCULTATION: Yes normoactive bowel sounds PALPATION: Yes Soft to palpation, No Tenderness to palpation present (GI), No Guarding due to palpation present (GI) and Yes No hepatosplenomegaly present Extremity: COMMON NORMALS: normal to inspection, capillary refill normal, no clubbing, cyanosis or edema, no calf tenderness and no pedal edema Neuro: SENSORIUM/ORIENTATION: Yes oriented to person, Yes oriented to place and Yes oriented to time Skin: COMMON NORMALS: no rashes or lesions noted GENERAL SKIN EXAM: no rashes or lesions noted Course Vital Signs: Vital signs: Vital Signs Temperature 98 F 05/05/21 19:52 Pulse Rate 84 05/06/21 06:00 Respiratory Rate 18 05/06/21 04:00 Blood Pressure 120/66 05/06/21 04:00 Pulse Oximetry 97 05/06/21 04:00 MDM - Weakness MDM Narrative: Medical decision making narrative: Initial BUN and creatinine are elevated we gave her some fluids however unfortunately pushed her into congestive heart failure there is a question of some infiltrate at the base of the right lung suspect it may have been more heart failure we talked her about going home but at the time of that discussion noted that she was hypoxic reevaluated repeat her chest x-ray showed increased pulmonary congestion shortly at that same time she started complaining of chest pain. we also gave her some Lasix which did seem to help, and started a troponin series. Prior to this she had not complained of chest pain. Given her change in symptoms with the onset of chest pain decided to place her on observation and do serial troponin rule out discussed with Juan and orders are written. Lab Data: Labs: Lab Results 05/05/21 05/05/21 05/05/21 Range/Units 10:19 10:19 10:51 WBC 5.8 (4.0-10.0) 10^3/ uL RBC 4.39 (4.1-5.3) 10^6/u L Hgb 11.7 (11.5-15.3) g/dL Hct 37.5 (37.0-47.0) % MCV 85.4 (81-99) fl MCH 26.7 L (28.0-34.0) pg MCHC 31.2 (30.0-36.0) g/dL RDW 15.8 H (12.1-15.1) % Plt Count 306 (130-400) 10^3/c mm MPV 12.0 H (7.4-10.4) fL Neut % (Auto) 58.5 % Lymph % (Auto) 29.1 % [place] % (Auto) 8.7 % Eos % (Auto) 2.6 % Baso % (Auto) 0.9 % Neut # (Auto) 3.38 (1.8-7.7) 10^3/u L Lymph # (Auto) 1.7 (0.8-4.8) 10^3/u L [place] # (Auto) 0.5 (0.2-0.9) 10^3/u L Eos # (Auto) 0.2 (0.0-0.8) 10^3/u L Baso # (Auto) 0.1 (0.0-0.1) 10^3/u L Nucleated RBC % (a uto) 0 % Nucleated RBCs # 0.0 /100WBC Specimen Type Sample Site ABG pH (7.35-7.45) ABG pCO2 (35-45) mmHg ABG pO2 (80.0-100.0) mmH g ABG HCO3 (22-26) mmol/L ABG O2 Saturation ABG Base Excess (-2.0-2.0) mmol/ L Saturnino Test A-a O2 Gradient (5-10) mmHg Hematocrit (37-47) % Hgb O2 Saturation (95-100) % Carboxyhemoglobin (0.4-20.1) %THgb Methemoglobin (0.4-1.5) % Total Hemoglobin (12-16) g/dL Ionized Calcium (1.1-1.4) mmol/L O2 Delivery Device O2 Liters/Min % FiO2 % Ob Gyn ID Sodium 141 (136-145) mmol/L Potassium 4.9 (3.5-5.1) mmol/L Chloride 102 (98-107) mmol/L Carbon Dioxide 27 (22-29) mmol/L Anion Gap 16.9 (5-19) BUN 50 H (8-23) mg/dL Creatinine 1.3 H (0.5-0.9) mg/dL GFR Calculation Not Reportable Glucose 120 H (65-115) mg/dL POC Glucose (70-110) mg/dL Calculated Osmolal ity 307 H (285-295) mOsm/k g Calcium 9.3 (8.5-10.5) mg/dL Total Bilirubin 0.3 (0.15-1.2) mg/dL AST 20 (0-32) U/L ALT 16 (0-33) U/L Alkaline Phosphata se 57 (35-105) IU/L Creatine Kinase 69 (26-192) U/L Troponin T Baselin e (0-10) ng/L Troponin T 120 Min [place] (0-10) ng/L Delta Troponin T (0-10) ABS# Total Protein 6.9 (6.6-8.7) g/dL Albumin 4.4 (3.5-5.2) g/dL Globulin 2.5 (1.3-4.6) g/dL Urine Color Yellow (Yellow) Urine Appearance Clear (CLEAR) Urine pH 5 (5-7) Ur Specific Gravit y 1.015 (1.005-1.030) Urine Protein Neg (Negative) Urine Glucose (UA) 4+ H (Normal) Urine Ketones Negative (Negative) Urine Blood Neg (Negative) Urine Nitrate Negative (Negative) Urine Bilirubin Neg (Negative) Urine Urobilinogen Norm (Negative) mg/dL Ur Leukocyte Sari ase Negative (Negative) 05/05/21 05/05/21 05/05/21 Range/Units 14:32 15:16 16:42 WBC (4.0-10.0) 10^3/ uL RBC (4.1-5.3) 10^6/u L Hgb (11.5-15.3) g/dL Hct (37.0-47.0) % MCV (81-99) fl MCH (28.0-34.0) pg MCHC (30.0-36.0) g/dL RDW (12.1-15.1) % Plt Count (130-400) 10^3/c mm MPV (7.4-10.4) fL Neut % (Auto) % Lymph % (Auto) % [place] % (Auto) % Eos % (Auto) % Baso % (Auto) % Neut # (Auto) (1.8-7.7) 10^3/u L Lymph # (Auto) (0.8-4.8) 10^3/u L [place] # (Auto) (0.2-0.9) 10^3/u L Eos # (Auto) (0.0-0.8) 10^3/u L Baso # (Auto) (0.0-0.1) 10^3/u L Nucleated RBC % (a uto) % Nucleated RBCs # /100WBC Specimen Type Arterial Sample Site Brachial, left ABG pH 7.30 L (7.35-7.45) ABG pCO2 53.0 H (35-45) mmHg ABG pO2 83.7 (80.0-100.0) mmH g ABG HCO3 26.0 (22-26) mmol/L ABG O2 Saturation 95.8 ABG Base Excess -1.0 (-2.0-2.0) mmol/ L Saturnino Test Pos A-a O2 Gradient 6.6 (5-10) mmHg Hematocrit 35.7 L (37-47) % Hgb O2 Saturation 94.2 L (95-100) % Carboxyhemoglobin 0.9 (0.4-20.1) %THgb Methemoglobin 0.7 (0.4-1.5) % Total Hemoglobin 11.6 L (12-16) g/dL Ionized Calcium 1.3 (1.1-1.4) mmol/L O2 Delivery Device Nc O2 Liters/Min 2.0 % FiO2 28.0 % Ob Gyn ID Cak Sodium 146.0 H (136-145) mmol/L Potassium 4.8 (3.5-5.1) mmol/L Chloride (98-107) mmol/L Carbon Dioxide (22-29) mmol/L Anion Gap (5-19) BUN (8-23) mg/dL Creatinine (0.5-0.9) mg/dL GFR Calculation Glucose 141.0 H (65-115) mg/dL POC Glucose 151 H (70-110) mg/dL Calculated Osmolal ity (285-295) mOsm/k g Calcium (8.5-10.5) mg/dL Total Bilirubin (0.15-1.2) mg/dL AST (0-32) U/L ALT (0-33) U/L Alkaline Phosphata se (35-105) IU/L Creatine Kinase (26-192) U/L Troponin T Baselin e 125 H* (0-10) ng/L Troponin T 120 Min [place] (0-10) ng/L Delta Troponin T (0-10) ABS# Total Protein (6.6-8.7) g/dL Albumin (3.5-5.2) g/dL Globulin (1.3-4.6) g/dL Urine Color (Yellow) Urine Appearance (CLEAR) Urine pH (5-7) Ur Specific Gravit y (1.005-1.030) Urine Protein (Negative) Urine Glucose (UA) (Normal) Urine Ketones (Negative) Urine Blood (Negative) Urine Nitrate (Negative) Urine Bilirubin (Negative) Urine Urobilinogen (Negative) mg/dL Ur Leukocyte Sari ase (Negative) 05/05/21 Range/Units 17:14 WBC (4.0-10.0) 10^3/ uL RBC (4.1-5.3) 10^6/u L Hgb (11.5-15.3) g/dL Hct (37.0-47.0) % MCV (81-99) fl MCH (28.0-34.0) pg MCHC (30.0-36.0) g/dL RDW (12.1-15.1) % Plt Count (130-400) 10^3/c mm MPV (7.4-10.4) fL Neut % (Auto) % Lymph % (Auto) % [place] % (Auto) % Eos % (Auto) % Baso % (Auto) % Neut # (Auto) (1.8-7.7) 10^3/u L Lymph # (Auto) (0.8-4.8) 10^3/u L [place] # (Auto) (0.2-0.9) 10^3/u L Eos # (Auto) (0.0-0.8) 10^3/u L Baso # (Auto) (0.0-0.1) 10^3/u L Nucleated RBC % (a uto) % Nucleated RBCs # /100WBC Specimen Type Sample Site ABG pH (7.35-7.45) ABG pCO2 (35-45) mmHg ABG pO2 (80.0-100.0) mmH g ABG HCO3 (22-26) mmol/L ABG O2 Saturation ABG Base Excess (-2.0-2.0) mmol/ L Saturnino Test A-a O2 Gradient (5-10) mmHg Hematocrit (37-47) % Hgb O2 Saturation (95-100) % Carboxyhemoglobin (0.4-20.1) %THgb Methemoglobin (0.4-1.5) % Total Hemoglobin (12-16) g/dL Ionized Calcium (1.1-1.4) mmol/L O2 Delivery Device O2 Liters/Min % FiO2 % Ob Gyn ID Sodium (136-145) mmol/L Potassium (3.5-5.1) mmol/L Chloride (98-107) mmol/L Carbon Dioxide (22-29) mmol/L Anion Gap (5-19) BUN (8-23) mg/dL Creatinine (0.5-0.9) mg/dL GFR Calculation Glucose (65-115) mg/dL POC Glucose (70-110) mg/dL Calculated Osmolal ity (285-295) mOsm/k g Calcium (8.5-10.5) mg/dL Total Bilirubin (0.15-1.2) mg/dL AST (0-32) U/L ALT (0-33) U/L Alkaline Phosphata se (35-105) IU/L Creatine Kinase (26-192) U/L Troponin T Baselin e (0-10) ng/L Troponin T 120 Min [place] 140.7 H (0-10) ng/L Delta Troponin T 15.7 H* (0-10) ABS# Total Protein (6.6-8.7) g/dL Albumin (3.5-5.2) g/dL Globulin (1.3-4.6) g/dL Urine Color (Yellow) Urine Appearance (CLEAR) Urine pH (5-7) Ur Specific Gravit y (1.005-1.030) Urine Protein (Negative) Urine Glucose (UA) (Normal) Urine Ketones (Negative) Urine Blood (Negative) Urine Nitrate (Negative) Urine Bilirubin (Negative) Urine Urobilinogen (Negative) mg/dL Ur Leukocyte Sari ase (Negative) Discharge Plan Discharge Patient Disposition: Placed in Observation Admit Provider: Delfino Martinez Clinical Impression: CHF (congestive heart failure), Atypical chest pain, Medication side effect Coding Level of Care Code ED Roll Grinder Operator for Rodrickg Fwd Exam Comprehensive
[2021-05-05 10:34] LABS: Basophils # 0.1 10^3/uL (0.0-0.1); Basophils % 0.9 %; Eosinophils # 0.2 10^3/uL (0.0-0.8); Eosinophils % 2.6 %; Hematocrit 37.5 % (37.0-47.0); Hemoglobin 11.7 g/dL (11.5-15.3); Lymphocytes # 1.7 10^3/uL (0.8-4.8); Lymphocytes % 29.1 %; Mean Corpuscular HGB Conc 31.2 g/dL (30.0-36.0); Mean Corpuscular Hemoglobin 26.7 pg (28.0-34.0); Mean Corpuscular Volume 85.4 fl (81-99); Monocytes # 0.5 10^3/uL (0.2-0.9); Monocytes % 8.7 %; Neutrophils # 3.38 10^3/uL (1.8-7.7); Neutrophils % 58.5 %; Nucleated Red Blood Cells % 0 %; Platelet Count 306 10^3/cmm (130-400); Red Blood Count 4.39 10^6/uL (4.1-5.3); Red Cell Distribution Width 15.8 % (12.1-15.1); White Blood Count 5.8 10^3/uL (4.0-10.0)
[2021-05-05 11:04] LABS: Alanine Aminotransferase 16 U/L (0-33); Albumin Level 4.4 g/dL (3.5-5.2); Alkaline Phosphatase 57 IU/L (35-105); Anion Gap 16.9 (5-19); Aspartate Amino Transferase 20 U/L (0-32); Blood Urea Nitrogen 50 mg/dL (8-23); Calcium 9.3 mg/dL (8.5-10.5); Carbon Dioxide 27 mmol/L (22-29); Chloride 102 mmol/L (98-107); Creatine Phosphokinase 69 U/L (26-192); Globulin 2.5 g/dL (1.3-4.6); Glucose 120 mg/dL (65-115); Osmolality Calculated 307 mOsm/kg (285-295); Potassium 4.9 mmol/L (3.5-5.1); Sodium 141 mmol/L (136-145); Total Bilirubin 0.3 mg/dL (0.15-1.2); Total Protein 6.9 g/dL (6.6-8.7)
[2021-05-05 11:23] LABS: Add Urine Microscopic? NO; Charge for UA Resulting for Rev
[2021-05-05 11:34] LABS: Protein Urine Neg (Negative); Specific Gravity, Urine 1.015 (1.005-1.030); Urine Appearance Clear (CLEAR); Urine Color Yellow (Yellow); pH Urine 5 (5-7)
[2021-05-05 11:35] LABS: Bilirubin Urine Neg (Negative); Blood Urine Neg (Negative); Glucose Urine UA 4+ (Normal); Ketones Urine Negative (Negative); Leukocyte Esterase Urine Negative (Negative); Nitrate Urine Negative (Negative); Urobilinogen Urine Norm (Negative)
--- NOTE | 2021-05-05 11:50 | CT_ITS ---
WS: [id number] CT HEAD NONCONTRAST HISTORY: fall, on anticoagulants TECHNIQUE: Contiguous axial imaging performed through the brain in 2.5 mm imaging. Bone and soft tiss ue windows. Sagittal and coronal reformats reviewed. All CT scans at [facility] use at least one of these dose optimization techniques: automated exposure control; mA and/or kV adjustment per pa tient size (includes targeted exams where dose is matched to clinical indication); or iterative recon struction. DLP: 1772.34 mGy.cm COMPARISON: 06/15/2018 No acute intracranial hemorrhage, midline shift or mass effect. Mild atrophy and mild chronic microvascular ischemic disease. No acute area of sulcal effacement. Ventricles: Normal size with no hydrocephalus. Paranasal sinuses: As visualized are clear. Mastoid air cells: Well pneumatized. Calvarium and scalp: Hyperostosis frontalis interna. CT/CT head wo con* [id number] IMPRESSION: 1. No acute intracranial hemorrhage or edema. 2. Mild atrophy and mild chronic microvascular ischemic disease.
[2021-05-05] MEDS: sodium chloride 0.9% 1,000 ML 999 ML IV (12:53)
--- NOTE | 2021-05-05 13:49 | XR_ITS ---
WS: [id number] XR pelvis 1-2V* [id number] REASON FOR EXAM: pain FINDINGS: No free air or retroperitoneal air. Bowel gas pattern demonstrates all bowel including the stomach to be very low-lying, to the level of the symphysis. Bowel gas outside the margins of the iliac wings. Large amount of stool in the colon. No findings of obstruction. Osteoarthritis hips bilaterally. XR/XR pelvis 1-2V* [id number] IMPRESSION: Probable low-lying pannus with hernia.
--- NOTE | 2021-05-05 14:33 | XR_ITS ---
WS: [id number] XR chest 1V portable [id number] REASON FOR EXAM: low oxygen sat FINDINGS: Since the examination of 1027 this a.m. there is been progression of the abnormality in the right mignon g with curly B-lines clearly evident and some blunting of the right costophrenic angle. There are als o some interstitial changes now evident in the left lower lung. XR/XR chest 1V portable [id number] IMPRESSION: Chest findings are progressive and most indicative of congestive heart failure.
[2021-05-05 14:43] LABS: Alveolar-Arterial Oxygen Gradi 6.6 mmHg (5-10); Arterial Blood Gas Hematocrit 35.7 % (37-47); Blood Gas Allen Test Pos; Blood Gas Operator Identificat CAK; Blood Gas Sample Site Brachial, left; Blood Gas Sample Type Arterial; Carboxyhemoglobin 0.9 %THgb (0.4-20.1); HGB O2 Sat 94.2 % (95-100); Ionized Calcium Level - ABG 1.3 mmol/L (1.1-1.4); Methemoglobin 0.7 % (0.4-1.5); Oxygen Device NC; Oxygen Saturation ABG 95.8; PO2 ABG 83.7 mmHg (80.0-100.0); Potassium Level - ABG 4.8 mmol/L (3.5-5.0); Total Hemoglobin 11.6 g/dL (12-16)
--- NOTE | 2021-05-05 15:00 | ECG_ITS ---
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 Measurements Intervals [place] Rate: 92 P: [place]: QRS: 99 QRSD: 142 T: -65 QT: 372 QTc: 460 Interpretive Statements ATRIAL FIBRILLATION RIGHT BUNDLE BRANCH BLOCK [120+ ms QRS DURATION, UPRIGHT V1, 40+ ms S IN I/aVL/V4/V5/V6] ANTEROSEPTAL MYOCARDIAL INFARCTION , OF INDETERMINATE AGE [40+ ms Q WAVE IN V1-V4] MODERATE T-WAVE ABNORMALITY, CONSIDER LATERAL ISCHEMIA [-0.1+ mV T-WAVE IN I/aVL/V5/V6] Compared to ECG 05/05/2021 10:41:27 Myocardial infarct finding now present T-wave abnormality still present Possible ischemia still present Electronically Signed On 05-05-2021 19:08:35 CDT by Lisa Blackmon M.D. [id number]
[2021-05-05] MEDS: FUROsemide 10 mg/mL SDV 10mL 60 MG IVP (15:02)
[2021-05-05 16:09] LABS: Troponin(5th) Baseline 125 ng/L (0-10)
[2021-05-05] MEDS: nitroglycerin 1 gm/inch oint Pkt 1 INCH TOPICAL ×2 (16:47→22:53)
--- NOTE | 2021-05-05 17:00 | ECG_ITS ---
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 Measurements Intervals [place] Rate: 89 P: [place]: QRS: 118 QRSD: 126 T: -81 QT: 375 QTc: 457 Interpretive Statements ATRIAL FIBRILLATION RIGHT AXIS DEVIATION [QRS AXIS > 100] RIGHT BUNDLE BRANCH BLOCK Compared to ECG 05/05/2021 15:19:16 Right-axis deviation now present Myocardial infarct finding no longer present T-wave abnormality no longer present Possible ischemia no longer present Electronically Signed On 05-05-2021 19:19:52 CDT by Lisa Blackmon M.D. [id number] f
[2021-05-05 17:20] LABS: Glucose Point of Care 151 mg/dL (70-110)
[2021-05-05 17:56] LABS: Troponin 5 2HR 140.7 ng/L (0-10); Troponin 5 2HR Delta 15.7 ABS# (0-10)
--- NOTE | 2021-05-05 18:04 | P.HP_ITS ---
Providers/Chief Complaint Admitting Physician: Delfino Martinez MD Primary Care Provider: Jermaine Roca DO Chief Complaint: WEAKNESS History of Present Illness Jane Castillo is a 75 year old female with past medical history of hypertension diabetes coronary artery disease status post CABG, A. fib, sleep apnea, was brought in with chief complaint of generalized weakness and difficulty walking.She took couple muscle relaxers yesterday late afternoon and this morning when she woke up she was experiencing generalized weakness and difficulty walking.When I Examined the patient she was complaining of left-sided neck pain, as well as left-sided jaw pain, of mild intensity. upon arrival in the ER she was worked up for above-mentioned complaint. Imaging studies: CT head without contrast: No acute intracranial pathology X-ray chest: Pulmonary vascular congestion, no infiltrates EKG: Atrial fibrillation with right bundle branch block. ABG: pH 7.30 PCO2 :53, PO2: 83 FiO2:28 % Pertinent labs: WBC: 8.3, H&H:10.5/34, platelet count: 297, serum sodium 141, potassium 4.9, BUN/ serum creatinine : 50/1.3. Troponin trend:125,140,163, proBNP:7798. In the ER patient received a liter fluid, followed by Lasix 60 IV one-time dose. Review of Systems Const: Denies: fever(s), chills, body aches, change in appetite or diaphoresis Card: Denies: edema, swelling of feet/ankles or leg pain with exertion Resp: Denies: productive cough, wheezing or pain on inspiration GI: Denies: abdominal pain, nausea, vomiting, diarrhea or constipation Musc: Denies: back pain Neuro: Denies: headache(s) or confusion Medications/Allergies Home Medications Medication Instructions Recorded Confirmed Last Taken Type cyanocobalamin (vitamin B-12) 1,000 mcg PO DAILY@0900 10/24/19 05/05/21 05/04/21 History 1,000 mcg capsule insulin glargine U-300 conc 300 13 unit SUBCUT DAILY 10/24/19 05/05/21 05/04/21 History unit/mL (3 mL) subcutaneous pen insulin lispro 100 unit/mL 5 unit SUBCUT TID 10/24/19 05/05/21 05/04/21 History subcutaneous pen isosorbide mononitrate 30 mg 60 mg PO BID@0900,2100 10/24/19 05/05/21 05/04/21 History tablet,extended release 24 hr levothyroxine 137 mcg capsule 137 mcg PO DAILY@0530 10/24/19 05/05/21 05/04/21 History losartan 100 mg tablet 100 mg PO DAILY@0900 10/24/19 05/05/21 05/04/21 History metformin 1,000 mg tablet 500 mg PO BID@0900,209910/24/19 05/05/21 05/04/21 History simvastatin 10 mg tablet 10 mg PO DAILY@1700 10/24/19 05/05/21 05/04/21 History Eliquis 5 mg PO BID@0900,209910/20/20 05/05/21 05/04/21 History bisacodyl 5 mg PO DAILY PRN 10/20/20 05/05/21 Unknown History fenofibrate nanocrystallized 48 mg PO DAILY@209910/20/20 05/05/21 05/04/21 History [Tricor] magnesium oxide 400 mg PO DAILY@0910/20/20 05/05/21 05/04/21 History nitroglycerin 0.4 mg SUBLINGUAL Q5M PRN 10/20/20 05/05/21 Unknown History vitamin E 400 unit PO DAILY@0910/20/20 05/05/21 05/04/21 History ascorbic acid (vitamin C) [Vitamin 250 mg PO DAILY 05/05/21 05/05/21 05/04/21 Hi story C] carvedilol See Rx Instructions .ROUTE .COMPLEX 05/05/21 05/05/21 05/04/21 History dapagliflozin [Farxiga] 5 mg PO DAILY 05/05/21 05/05/21 05/04/21 History dulaglutide [Trulicity] 0.7 mg SUBCUT Q7D 05/05/21 05/05/21 05/04/21 History furosemide 80 mg PO DAILY 05/05/21 05/05/21 05/04/21 History Allergies Allergy/AdvReac Type Severity Reaction Status Date / Time hydromorphone [From Dilaudid] Allergy Severe ADR-Halluci Verified 09/13/20 11:05 nating sulfamethoxazole Allergy Hughes Verified 09/13/20 11:05 [From Bactrim] Jose syndrome trimethoprim [From Bactrim] Allergy Saul Verified 09/13/20 11:05 Jose syndrome PFSH Acute PFSH: Medical History (Updated 05/06/21 @ 07:48 by Delfino Martinez MD) TRISTEN (acute kidney injury) Angina at rest Atrial fibrillation On Eliquis and dofetilide CAD (coronary artery disease) Chest pain CHF (congestive heart failure), NYHA class I Choking Modified barium swallow normal Diabetes Fatty liver Hypertensive urgency Hypertensive urgency Incisional hernia Sleep apnea Type 2 diabetes mellitus Surgical History H/O: hysterectomy Endometrial cancer History of appendectomy History of incisional hernia repair (~2016) Hx of CABG S/P CABG x [address] Vaz in 2005 CABG S/P cholecystectomy S/P colonoscopy S/P LASIK surgery of both eyes Family History Other CAD (coronary artery disease) Diabetes Social History Smoking and tobacco status: never smoked Alcohol intake: never Female Reproductive History: Date of last menstrual period: 10/20/20 Vitals/I&O/Wt Last Vital Signs Temp 98.9 F 05/05/21 10:03 Pulse 89 05/05/21 17:37 Resp 18 05/05/21 15:51 BP 117/87 05/05/21 15:51 Pulse Ox 98 05/05/21 17:37 Weight last 48 hrs Weight 85.729 kg Physical Exam Const: COMMON NORMALS: patient oriented x3 HENMT: COMMON NORMALS: normocephalic and atraumatic HEAD & SCALP: normocephalic and atraumatic Resp: EFFORT & INSPECTION: Yes symmetric chest movement, Yes abnormal respiratory pattern, Yes tachypneic, Yes respiratory distress and Yes labored AUSCULTATION: crackles and diminished lung sounds Cardio: COMMON NORMALS: regular rate, regular rhythm, S1 normal heart sound present, S2 normal heart sound present, No gallops present (Cardio), No murmurs present (Cardio), No rub (Cardio) and Peripheral pulses 2+ throughout RATE: regular rate RHYTHM: regular rhythm HEART SOUNDS: S1 normal heart sound present and S2 normal heart sound present PERIPHERAL PULSES: Peripheral pulses 2+ throughout GI: COMMON NORMALS: Normal to inspection, nondistended, normoactive bowel sounds present, Soft to palpation, non-tender, No hepatosplenomegaly present and no masses AUSCULTATION: Yes normoactive bowel sounds PALPATION: Yes Soft to palpation and Yes No hepatosplenomegaly present RECTAL EXAM: deferred Extremity: COMMON NORMALS: no clubbing, cyanosis or edema and no pedal edema Neuro: COMMON NORMALS: patient oriented x3 Urinary Catheter Management^: Long: Cath Placed During This Visit: yes Urinary Catheter Date of Insertion: 05/05/21 Urinary Catheter Time of Insertion: 16:26 Data : 05/06/21 04:26 05/06/21 04:26 A&P Assessment and plan (1) Non-ST elevation myocardial infarction (NSTEMI): NSTEMI: Type I versus type II: 2D echo: Lovenox 80 MG SC Q12 H Daily Plavix 75 mg oral daily Atorvastatin 20 mg p.o. daily Carvedilol 12.5 mg p.o. twice daily Nitropaste 1 inch topical every 6 hours daily Sublingual nitro as needed Cardiology consult Status: Acute (2) CHF (congestive heart failure), NYHA class I: Decompensated heart failure: Lasix 40 IV every 12 Intake output charting Daily weight Status: Acute (3) CKD (chronic kidney disease) stage 3, GFR 30-59 ml/min: Status: Acute (4) Atrial fibrillation: Currently rate controlled Status: Acute Qualifiers: Atrial fibrillation type: unspecified chronic Qualified Code(s): I48.20 - Chronic atrial fibrillation, unspecified (5) CAD (coronary artery disease): Status: Acute (6) Benign essential hypertension with target blood pressure below 140/90: Status: Acute (7) Type 2 diabetes mellitus: Status: Acute Qualifiers: Diabetes mellitus ferry terminal 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 insulin use: without usp use Diabetes mellitus complication status: with hyperglycemia Qualified Code(s): E11.65 - Type 2 diabetes mellitus with hyperglycemia (8) Sleep apnea: Status: Acute Qualifiers: Sleep apnea type: obstructive Qualified Code(s): G47.33 - Obstructive sleep apnea (adult) (pediatric) Attestations Medical Necessity Statement*: Patient needs to be in hospital for the management of NSTEMI.Anticipated length of stay greater than 2 midnights Coding Level of Care Code Acute Diet Counselor for Chg Fwd Diagnoses Non-ST elevation myocardial infarction (NSTEMI) I21.4 CHF (congestive heart failure), NYHA class I I50.9 CKD (chronic kidney disease) stage 3, GFR 30-59 ml/min N18.30 Atrial fibrillation I48.20 Atrial fibrillation type: unspecified chronic CAD (coronary artery disease) I25.10 Benign essential hypertension with target blood pressure below 140/90 I10 Type 2 diabetes mellitus E11.65 Diabetes mellitus usp insulin use: without ferry terminal supervisor use Diabetes mellitus complication status: with hyperglycemia Sleep apnea G47.33 Sleep apnea type: obstructive
[2021-05-05] MEDS: enoxaparin 80 mg/0.8 mL Syringe SUBCUT (19:04)
[2021-05-05 20:01] LABS: SARS Covid-2 Antigen Negative (Negative)
--- NOTE | 2021-05-05 20:24 | PC.NURSE ---
Shift Note Frequent safety and comfort rounds continue. Orders and/or nursing care completed as indicated. Patient monitored for response to intervention and treatment(s). Education provided includes current acute problems. Patient and/or sales representative canvas products verbalized understanding . Will continue to monitor.
[2021-05-05 20:27] LABS: Glucose Point of Care 168 mg/dL (70-110)
--- NOTE | 2021-05-05 21:00 | ECG_ITS ---
[facility] Test Date: 2021-05-05 Pat Name: Jane Castillo Department: Room: 111 Gender: Female Referral And Information Aide: : 1945 Requested By: Ashok Patricio Order Number: [id number] Humaira MD: Sam Bishop M.D. Measurements Intervals [place] Rate: 83 P: [place]: QRS: 133 QRSD: 130 T: -64 QT: 382 QTc: 449 Interpretive Statements ATRIAL FIBRILLATION RIGHT AXIS DEVIATION [QRS AXIS > 100] RIGHT BUNDLE BRANCH BLOCK [120+ ms QRS DURATION, UPRIGHT V1, 40+ ms S IN I/aVL/V4/V5/V6] Compared to ECG 05/05/2021 17:17:53 No significant changes Electronically Signed On 05-06-2021 23:45:42 CDT by Sam Bishop M.D. [id number]
[2021-05-05] MEDS: isosorbide mononitrate ER 60 mg Tablet PO (21:03)
[2021-05-05] MEDS: atorvastatin 40 mg Tablet 20 MG PO (21:03)
[2021-05-05] MEDS: carvedilol 12.5 mg Tablet PO (21:04)
[2021-05-05 21:34] LABS: Troponin 5 6HR 163.5 ng/L (0-10); Troponin 5 6HR Delta 38.5 ng/L (0-12)
[2021-05-05] MEDS: clopidogrel 300 mg Tablet PO (23:12)
[2021-05-05] MEDS: ondansetron 2 mg/ML SDV 2 mL 4 MG IVP (23:21)
--- NOTE | 2021-05-05 23:39 | PM.CONSULT ---
Providers/Reason For Consult Consulting Physician/Specialty*: Manuela Bishop MD/cardiology Reason for Consult*: Patient is a chest pain, elevated troponin T and history of coronary artery bypass surgery Attending Physician: Delfino Martinez MD Primary Care Provider: Jermaine Roca DO History of Present Illness History of Present Illness Jane Castillo is a 75 year old female, is admitted to hospital through the emergency room, where she presented with complaints of generalized weakness and inability to stand up. She was found to elevated troponin T. Cardiology consult was requested for further cardiac evaluation recommendations. Patient is known to have multiple medical problems including atherosclerotic heart disease, status post coronary bypass surgery, essential benign hypertension, type 2 diabetes, dyslipidemia, hypothyroidism and intermittent atrial fibrillation. This morning as she woke up, she was finding extremely difficult to stand on her feet. She was feeling so weak and she slid back to her bed. She was brought to the hospital emergency room for further evaluation and management. Patient was seen by her primary care provider 3 days ago for back muscle spasms. She was prescribed a muscle relaxant. She took an extra muscle relaxant this morning. She seems to think that the medication might have caused some of the symptoms. She has no chest pain. However she is complaining of some tight feeling in the left side of the neck and also the left side of the face. She has no palpitation or nausea. No unusual shortness of breath. She has some baseline shortness of breath with activities. She also is known to have congestive heart failure?. Ms. Castillo is being followed by Dr. Meyer at the [facility]. She is known to have atherosclerotic heart disease and four-vessel bypass surgery in 2005. She was diagnosed with atrial fibrillation in the beginning of this year. She had electrical cardioversion one time. Apparently she has not had any significant cardiac symptoms up until recently . She was seen by Dr. Meyer a month ago and was told that everything is stable. She denies any fever or chills. No similar cough. No unusual shortness of breath. No orthopnea PND. She has been compliant with medications. Review of Systems Narrative: CONSTITUTIONAL: No fever or chills. Feeling of lethargy and weakness for the last few days EYES: No blurring of vision or other visual disturbances lately. ENT: No hoarseness of voice, auditory disturbances or sore throat. CARDIOVASCULAR: As mentioned above. RESPIRATORY: No significant cough. GASTROINTESTINAL: No hematemesis or melena. GENITOURINARY: Questionable history of chronic kidney disease INTEGUMENTARY: She has a history of Partick-Jose syndrome following Bactrim. NEURO: No transient ischemic attacks or amaurosis. PSYCHIATRIC: No history of psychosis or major depression. HEMATOLOGIC: No bleeding disorders or significant anemia. ENDOCRINE: History of type 2 diabetes MUSCULOSKELETAL: No recent joint pain or swelling. ALLERGY/IMMUNOLOGY: As mentioned above. Meds/Allergies Home Medications and Allergies Home Medications Medication Instructions Recorded Confirmed Last Taken Type cyanocobalamin (vitamin B-12) 1,000 mcg PO DAILY@0900 10/24/19 05/05/21 05/04/21 History 1,000 mcg capsule insulin glargine U-300 conc 300 13 unit SUBCUT DAILY 10/24/19 05/05/21 05/04/21 History unit/mL (3 mL) subcutaneous pen insulin lispro 100 unit/mL 5 unit SUBCUT TID 10/24/19 05/05/21 05/04/21 History subcutaneous pen isosorbide mononitrate 30 mg 60 mg PO BID@0900,209910/24/19 05/05/21 05/04/21 History tablet,extended release 24 hr levothyroxine 137 mcg capsule 137 mcg PO DAILY@0530 10/24/19 05/05/21 05/04/21 History losartan 100 mg tablet 100 mg PO DAILY@0900 10/24/19 05/05/21 05/04/21 History metformin 1,000 mg tablet 500 mg PO BID@0900,209910/24/19 05/05/21 05/04/21 History simvastatin 10 mg tablet 10 mg PO DAILY@1700 10/24/19 05/05/21 05/04/21 History Eliquis 5 mg PO BID@0900,209910/20/20 05/05/21 05/04/21 History bisacodyl 5 mg PO DAILY PRN 10/20/20 05/05/21 Unknown History fenofibrate nanocrystallized 48 mg PO DAILY@209910/20/20 05/05/21 05/04/21 History [Tricor] magnesium oxide 400 mg PO DAILY@0900 10/20/20 05/05/21 05/04/21 History nitroglycerin 0.4 mg SUBLINGUAL Q5M PRN 10/20/20 05/05/21 Unknown History vitamin E 400 unit PO DAILY@0900 10/20/20 05/05/21 05/04/21 History ascorbic acid (vitamin C) [Vitamin 250 mg PO DAILY 05/05/21 05/05/21 05/04/21 History C] carvedilol See Rx Instructions .ROUTE .COMPLEX 05/05/21 05/05/21 05/04/21 History dapagliflozin [Farxiga] 5 mg PO DAILY 05/05/21 05/05/21 05/04/21 History dulaglutide [Trulicity] 0.7 mg SUBCUT Q7D 05/05/21 05/05/21 05/04/21 History furosemide 80 mg PO DAILY 05/05/21 05/05/21 05/04/21 History Allergies Allergy/AdvReac Type Severity Reaction Status Date / Time hydromorphone [From Dilaudid] Allergy Severe ADR-Halluci Verified 09/13/20 11:05 nating sulfamethoxazole Allergy Hughes Verified 09/13/20 11:05 [From Bactrim] Jose syndrome trimethoprim [From Bactrim] Allergy Hughes Verified 09/13/20 11:05 Jose syndrome Current Medications Current Medications Generic Name Dose Route Start Last Admin Trade Name Efren PRN Reason Stop Dose Admin Atorvastatin Calcium 20 mg 05/05/21 21:00 05/05/21 21:03 Atorvastatin 40 Mg Tablet PO 20 mg DAILY@2100 [facility] Administration Carvedilol 0 mg 05/05/21 21:00 05/05/21 21:04 Carvedilol 12.5 Mg Tablet PO 12.5 mg BID@0900,2100 [facility] Administration Enoxaparin Sodium 80 mg 05/05/21 18:00 05/05/21 19:04 Enoxaparin 80 Mg/0.8 Ml Syringe SUBCUT 80 mg Q12H PEDRO Administration Insulin Aspart 0 unit 05/05/21 21:00 05/05/21 21:04 Insulin Aspart 100 Unit/1 Ml SUBCUT 2 unit WM&BEDTIME PEDRO Administration Protocol Isosorbide Mononitrate 60 mg 05/05/21 21:00 05/05/21 21:03 Isosorbide Mononitrate Er 60 Mg Tablet PO 60 mg BID@0900,2100 [facility] Administration Nitroglycerin 1 inch 05/05/21 16:45 05/05/21 22:53 Nitroglycerin 1 Gm/Inch Oint Pkt TOPICAL 1 inch Q6H PEDRO Administration Ondansetron HCl 4 mg 05/05/21 17:56 05/05/21 23:21 Ondansetron 2 Mg/Ml Sdv 2 Ml IVP 4 mg Q8H PRN Administration vomiting, or N/V if npo PFSH Acute PFSH: Medical History TRISTEN (acute kidney injury) Angina at rest Atrial fibrillation On Eliquis and dofetilide CAD (coronary artery disease) Chest pain CHF (congestive heart failure), NYHA class I Choking Modified barium swallow normal Diabetes Fatty liver Hypertensive urgency Hypertensive urgency Incisional hernia Sleep apnea Type 2 diabetes mellitus Surgical History H/O: hysterectomy Endometrial cancer History of appendectomy History of incisional hernia repair (~2015) Hx of CABG S/P CABG x [address] Vaz in [place] 2005 CABG S/P cholecystectomy S/P colonoscopy S/P LASIK surgery of both eyes Family History Other CAD (coronary artery disease) Diabetes Social History Smoking and tobacco status: never smoked Alcohol intake: never Female Reproductive History: Date of last menstrual period: 10/20/20 Vitals/I&O/Wt Last Vital Signs Temp 98 F 05/05/21 19:52 Pulse 99 05/05/21 19:52 Resp 19 H 05/05/21 19:52 BP 136/76 05/05/21 19:52 Pulse Ox 96 05/05/21 19:52 05/05/21 05/05/21 05/06/21 14:59 22:59 06:59 Intake Total 1360 / 1360 Output Total 600 / 600 Balance 760 / 760 Weight last 48 hrs Weight 189 lb Weight 189 lb Physical Exam Narrative: EXAM NARRATIVE: GENERAL: The patient is alert and oriented times three. Not in any acute distress. HEENT: No significant pallor, icterus or lymphadenopathy. The pupils are reactant to light. Oral cavity: There are no mucous membrane lesions. Funduscopic examination: The fundus is not visualized NECK: Trachea appears to be central. No masses noted. No JVD or thyromegaly appreciated. No carotid bruit. RESPIRATORY: Chest is symmetrical. No intercostals muscle retraction or any accessory muscle activation. There is no chest wall tenderness. Breath sounds are heard bilaterally. No rales or rhonchi heard. No evidence of any consolidation. BREASTS: Deferred. HEART: The PMI could not be palpated. No other palpable precordial events. First heart sound is variable. Second heart sound is normal. No S3 or S4 heard. No pericardial rub or any click heard. Systolic murmur at the left sternal border. No diastolic murmurs. ABDOMEN: No vessel pulsations or distention. No tenderness. No organomegaly appreciated. No abdominal bruit. Bowel sounds are normally heard. : Deferred. RECTAL: Deferred. LYMPHATIC: No lymphadenopathy noted in the neck or groin. EXTREMITIES: No edema or cyanosis. No clubbing. The pulses are symmetrical bilaterally. The radial, femoral, dorsalis pedis and the posterior tibial pulses are palpated and found to be in good volume and amplitude. MUSCULOSKELETAL:No acute joint deformities or swelling SKIN: There are no significant scars or skin rash noted. NEUROPSYCHIATRIC: The patient is alert and oriented x3. She seems to be very anxious. The higher functions are grossly within normal limits. No tremors or rigidity noted. Urinary Catheter Management^: Long: Cath Placed During This Visit: yes Reason for Continuing Indwelling Catheter: Accurate Measurement of Urinary Output in Critically Ill Patients Urinary Catheter Date of Insertion: 05/05/21 Urinary Catheter Time of Insertion: 16:26 Data Labs: Other Labs: Laboratory Last Values WBC 5.8 10^3/uL (4.0- 10.0) 05/05/21 10:19 RBC 4.39 10^6/uL (4.1 -5.3) 05/05/21 10:19 Hgb 11.7 g/dL (11.5-1 5.3) 05/05/21 10:19 Hct 37.5 % (37.0-47.0 ) 05/05/21 10:19 MCV 85.4 fl (81-99) 05/05/21 10:19 MCH 26.7 pg (28.0-34. 0) L 05/05/21 10:19 MCHC 31.2 g/dL (30.0-3 6.0) 05/05/21 10:19 RDW 15.8 % (12.1-15.1 ) H 05/05/21 10:19 Plt Count 306 10^3/cmm (130 -400) 05/05/21 10:19 MPV 12.0 fL (7.4-10.4 ) H 05/05/21 10:19 Neut % (Auto) 58.5 % 05/05/21 10:19 Lymph % (Auto) 29.1 % 05/05/21 10:19 [place] % (Auto) 8.7 % 05/05/21 10:19 Eos % (Auto) 2.6 % 05/05/21 10:19 Baso % (Auto) 0.9 % 05/05/21 10:19 Neut # (Auto) 3.38 10^3/uL (1.8 -7.7) 05/05/21 10:19 Lymph # (Auto) 1.7 10^3/uL (0.8- 4.8) 05/05/21 10:19 [place] # (Auto) 0.5 10^3/uL (0.2- 0.9) 05/05/21 10:19 Eos # (Auto) 0.2 10^3/uL (0.0- 0.8) 05/05/21 10:19 Baso # (Auto) 0.1 10^3/uL (0.0- 0.1) 05/05/21 10:19 Nucleated RBC % (a uto) 0 % 05/05/21 10:19 Nucleated RBCs # 0.0 /100WBC 05/05/21 10:19 Specimen Type Arterial 05/05/21 14:32 Sample Site Brachial, left 05/05/21 14:32 ABG pH 7.30 (7.35-7.45) L 05/05/21 14:32 ABG pCO2 53.0 mmHg (35-45) H 05/05/21 14:32 ABG pO2 83.7 mmHg (80.0-1 00.0) 05/05/21 14:32 ABG HCO3 26.0 mmol/L (22-2 6) 05/05/21 14:32 ABG O2 Saturation 95.8 05/05/21 14:32 ABG Base Excess -1.0 mmol/L (-2.0 -2.0) 05/05/21 14:32 Saturnino Test Pos 05/05/21 14:32 A-a O2 Gradient 6.6 mmHg (5-10) 05/05/21 14:32 Hematocrit 35.7 % (37-47) L 05/05/21 14:32 Hgb O2 Saturation 94.2 % (95-100) L 05/05/21 14:32 Carboxyhemoglobin 0.9 %THgb (0.4-20 .1) 05/05/21 14:32 Methemoglobin 0.7 % (0.4-1.5) 05/05/21 14:32 Total Hemoglobin 11.6 g/dL (12-16) L 05/05/21 14:32 Sodium 146.0 mmol/L (131 -143) H 05/05/21 14:32 Potassium 4.8 mmol/L (3.5-5 .0) 05/05/21 14:32 Glucose 141.0 mg/dL (70-1 15) H 05/05/21 14:32 Ionized Calcium 1.3 mmol/L (1.1-1 .4) 05/05/21 14:32 O2 Delivery Device Nc 05/05/21 14:32 O2 Liters/Min 2.0 % 05/05/21 14:32 FiO2 28.0 % 05/05/21 14:32 Mill Turner ID Cak 05/05/21 14:32 Sodium 141 mmol/L (136-1 45) 05/05/21 10:19 Potassium 4.9 mmol/L (3.5-5 .1) 05/05/21 10:19 Chloride 102 mmol/L (98-10 7) 05/05/21 10:19 Carbon Dioxide 27 mmol/L (22-29) 05/05/21 10:19 Anion Gap 16.9 (5-19) 05/05/21 10:19 BUN 50 mg/dL (8-23) H 05/05/21 10:19 Creatinine 1.3 mg/dL (0.5-0. 9) H 05/05/21 10:19 GFR Calculation Not Reportable 05/05/21 10:19 Glucose 120 mg/dL (65-115 ) H 05/05/21 10:19 POC Glucose 168 mg/dL (70-110 ) H 05/05/21 20:00 Calculated Osmolal ity 307 mOsm/kg (285- 295) H 05/05/21 10:19 Calcium 9.3 mg/dL (8.5-10 .5) 05/05/21 10:19 Total Bilirubin 0.3 mg/dL (0.15-1 .2) 05/05/21 10:19 AST 20 U/L (0-32) 05/05/21 10:19 ALT 16 U/L (0-33) 05/05/21 10:19 Alkaline Phosphata se 57 IU/L (35-105) 05/05/21 10:19 Creatine Kinase 69 U/L (26-192) 05/05/21 10:19 Troponin T Baselin e 125 ng/L (0-10) H* 05/05/21 15:16 Troponin T 120 Min chad 140.7 ng/L (0-10) H 05/05/21 17:14 Delta Troponin T 15.7 ABS# (0-10) H* 05/05/21 17:14 Troponin T Hi Sens 6Hr 163.5 ng/L (0-10) H 05/05/21 21:08 Troponin T Hi Sens 6Hr Delta 38.5 ng/L (0-12) H* 05/05/21 21:08 Total Protein 6.9 g/dL (6.6-8.7 ) 05/05/21 10:19 Albumin 4.4 g/dL (3.5-5.2 ) 05/05/21 10:19 Globulin 2.5 g/dL (1.3-4.6 ) 05/05/21 10:19 Urine Color Yellow (Yellow) 05/05/21 10:51 Urine Appearance Clear (CLEAR) 05/05/21 10:51 Urine pH 5 (5-7) 05/05/21 10:51 Ur Specific Gravit y 1.015 (1.005-1.0 30) 05/05/21 10:51 Urine Protein Neg (Negative) 05/05/21 10:51 Urine Glucose (UA) 4+ (Normal) H 05/05/21 10:51 Urine Ketones Negative (Negati ve) 05/05/21 10:51 Urine Blood Neg (Negative) 05/05/21 10:51 Urine Nitrate Negative (Negati ve) 05/05/21 10:51 Urine Bilirubin Neg (Negative) 05/05/21 10:51 Urine Urobilinogen Norm mg/dL (Negat casper) 05/05/21 10:51 Ur Leukocyte Sari ase Negative (Negati ve) 05/05/21 10:51 SARS-CoV-2 Ag (Rap id) Negative (Negati ve) 05/05/21 18:36 A&P Assessment and plan (1) Non-ST elevation myocardial infarction (NSTEMI): Patient is a clinical features are suggestive of a non-ST elevation myocardial infarction. At this point, she is hemodynamically stable. this point, we may start her on subcu Lovenox, p.o. aspirin and topical nitrates. The beta-blockers may be continued. Also may be started on Plavix 300 mg p.o. now followed by 75 mg p.o. daily. The home medication may be continued. The dose of the Lovenox need to be adjusted for the kidney function Status: Acute (2) Atypical chest pain: Her chest symptoms are very atypical. The tight feeling in the left side of the neck and the face, could be ischemic related. Status: Resolved (3) Atherosclerotic heart disease of platinum coronary artery with other forms of angina pectoris: As mentioned above. An echocardiogram would be helpful to evaluate the LV function and rule out any other pathology. Status: Acute (4) Atrial fibrillation: Patient is on long-term oral anticoagulation. The last dose of Eliquis was last evening. I may hold off on the Eliquis at this point. Agree with subcu Lovenox. We will go ahead and do an echocardiogram, to evaluate the LV function. Status: Acute Qualifiers: Atrial fibrillation type: unspecified chronic Qualified Code(s): I48.20 - Chronic atrial fibrillation, unspecified (5) Sleep apnea: Patient may continue on the current management. Status: Acute Qualifiers: Sleep apnea type: obstructive Qualified Code(s): G47.33 - Obstructive sleep apnea (adult) (pediatric) (6) Type 2 diabetes mellitus: Patient may continue on the current medications. Status: Acute Qualifiers: Diabetes mellitus complication status: with hyperglycemia Diabetes mellitus manager long term care insulin use: without nursing home use Qualified Code(s): E11.65 - Type 2 diabetes mellitus with hyperglycemia (7) Benign essential hypertension with target blood pressure below 140/90: The blood pressure currently is a stage II. We will try to optimize the medical treatment. Status: Acute (8) Chronic kidney disease: The etiology of the chronic kidney disease is not known at this point. The diabetes could be accountability factor. Electrolytes need to be clear closely monitored Status: Acute Additional A&P Information After reviewing the above and also based on the patient's clinical progress, further recommendations will be made. Thank you for the opportunity to eval this patient make these recommendations Consult Attestations Medical Necessity Statement: Patient requires continued hospital stay for close monitoring and further management Coding Level of Care Code Acute Health Care Sanitary Technician for g Fwd History Detailed Exam Detailed Medical Decision Making High Complexity Diagnoses Non-ST elevation myocardial infarction (NSTEMI) I21.4 Atypical chest pain R07.89 Atherosclerotic heart disease of platinum coronary artery with other forms of angina pectoris I25.118 Atrial fibrillation I48.20 Atrial fibrillation type: unspecified chronic Sleep apnea G47.33 Sleep apnea type: obstructive Type 2 diabetes mellitus E11.65 Diabetes mellitus complication status: with hyperglycemia Diabetes mellitus manager long term care insulin use: without manager long term care use Benign essential hypertension with target blood pressure below 140/90 I10 Chronic kidney disease N18.9
[2021-05-06] VITALS (17 sets, daily range): BP systolic 110–150; BP diastolic 44–77; PULSE 72–90; RESP 7–29; O2SAT 95–100
[2021-05-06] MEDS: FUROsemide 10 mg/mL SDV 4mL 40 MG IVP ×2 (01:09→09:33)
[2021-05-06] MEDS: potassium chloride ER 20 mEq Tablet PO (01:09)
[2021-05-06] MEDS: nitroglycerin 1 gm/inch oint Pkt 1 INCH TOPICAL (04:41)
[2021-05-06] MEDS: levothyroxine 137 mcg Tablet PO (04:41)
[2021-05-06 05:25] LABS: Basophils # 0.1 10^3/uL (0.0-0.1); Basophils % 0.7 %; Eosinophils # 0.1 10^3/uL (0.0-0.8); Eosinophils % 1.4 %; Hematocrit 34.7 % (37.0-47.0); Hemoglobin 10.5 g/dL (11.5-15.3); Lymphocytes # 1.6 10^3/uL (0.8-4.8); Lymphocytes % 19.4 %; Mean Corpuscular HGB Conc 30.3 g/dL (30.0-36.0); Mean Corpuscular Hemoglobin 26.3 pg (28.0-34.0); Mean Platelet Volume 11.9 fL (7.4-10.4); Monocytes # 0.5 10^3/uL (0.2-0.9); Monocytes % 6.5 %; Neutrophils # 5.97 10^3/uL (1.8-7.7); Neutrophils % 71.8 %; Nucleated Red Blood Cells % 0 %; Platelet Count 297 10^3/cmm (130-400); Red Blood Count 3.99 10^6/uL (4.1-5.3); Red Cell Distribution Width 15.8 % (12.1-15.1); White Blood Count 8.3 10^3/uL (4.0-10.0)
[2021-05-06 05:48] LABS: Alanine Aminotransferase 15 U/L (0-33); Albumin Level 3.8 g/dL (3.5-5.2); Alkaline Phosphatase 40 IU/L (35-105); Anion Gap 14.1 (5-19); Aspartate Amino Transferase 23 U/L (0-32); Blood Urea Nitrogen 40 mg/dL (8-23); Calcium 9.1 mg/dL (8.5-10.5); Carbon Dioxide 29 mmol/L (22-29); Chloride 103 mmol/L (98-107); Globulin 2.3 g/dL (1.3-4.6); Glucose 128 mg/dL (65-115); Magnesium 2.5 mg/dL (1.7-2.3); NT Pro B Type Natriuretic Pept 7798 pg/mL (0-450); Osmolality Calculated 303 mOsm/kg (285-295); Potassium 5.1 mmol/L (3.5-5.1); Sodium 141 mmol/L (136-145); Total Bilirubin 0.3 mg/dL (0.15-1.2); Total Protein 6.1 g/dL (6.6-8.7)
[2021-05-06 05:51] LABS: Troponin T (5th) Once 136 ng/L (0-10)
[2021-05-06 06:34] LABS: Glucose Point of Care 124 mg/dL (70-110)
[2021-05-06] MEDS: enoxaparin 80 mg/0.8 mL Syringe SUBCUT ×2 (07:15→18:09)
[2021-05-06] MEDS: carvedilol 12.5 mg Tablet PO ×2 (09:32→21:20)
[2021-05-06] MEDS: cyanocobalamin 1,000 mcg Tablet 1000 MCG PO (09:32)
[2021-05-06] MEDS: isosorbide mononitrate ER 60 mg Tablet PO ×2 (09:32→21:20)
[2021-05-06] MEDS: clopidogrel 75 mg Tablet PO (09:33)
--- NOTE | 2021-05-06 11:11 | PC.CHAP ---
Pastoral Care Encounter/Spiritual Assessment Type of Contact [] Declined stream control officer visit [] Patient/Family/Request visit [] Outpatient visit [] Follow-up visit [] Physician referral [] Code/Alert [x] Routine visit [] Staff referral [] Actively dying [x] Patient sleeping [] Family support [] [] Out of room [] Palliative care [] [] Receiving care in room [] Pre-surgical visit [] Trauma [] Long length of stay [] ICU visit [] Other: Relational/Emotional Strength [] Patient feels connected with others/family/visitors/staff [] Distress [] Loneliness/isolation [] Abandonment Spirituality of Patient [] Person of Allison [] Attends Bahai of their Allison [] Believes in Prayer [] Reads Bible or Religion materials [] There are Spiritual issues to be addressed Childcare Director Interventions [] Prayer [] Active listening [] Non-anxious presence [] Spiritual/emotional support [] Crisis/trauma care [] Spiritual counseling [] Bereavement support [] Provided bereavement packet [] Provided Bible/devotional materials [] Provided toy/stuffed animal, coloring book to patient or family member [] Provided Communion [] Anointing/Erick [] Salvation [] Completed spiritual assessment [] Other: Impact on Illness or Injury [] Angry [] Fearful [] Anxious [] Often cries [] Exhaustion [] Unable to work [] Unable to attend church [] Unable to walk/stand [] Unable to read [] Unable to drive [] Unable to eat/drink [] Unable to sleep [] Unable to be with family [] Patient intubated [] Other: Summary Time spent with patient
[2021-05-06 11:30] LABS: Glucose Point of Care 198 mg/dL (70-110)
[2021-05-06] MEDS: cyclobenzaprine 10 mg Tablet 5 MG PO (11:31)
--- NOTE | 2021-05-06 14:00 | PC.NURSE ---
Dr Bishop at bedside for discussion of plan of care and treatment with patient verbal instructions received at bedside to stat IVF Normal saline at 0600 05/07 at 70ml/hr hold lasix in evening obtain am BMP in preparation for [facility] 05/07
--- NOTE | 2021-05-06 14:57 | PC.NURSE ---
spoke with Dr donato on unit ok to discontinue Nitro paste
--- NOTE | 2021-05-06 15:21 | PM.PN ---
Subjective Subjective: Interval history: Patient used to have the's feeling of weakness/lethargy. Also has some back pain and left shoulder pain. Some worsening of the symptoms with movements. No fever, chills or cough. Medications: Reviewed: Yes Medication Review Details: Current Medications Acetaminophen (Acetaminophen 325 Mg Tablet) 650 mg PO Q6H PRN PRN Reason: Mild/Mod Pain Or Temp >/= 101 Atorvastatin Calcium (Atorvastatin 40 Mg Tablet) 20 mg PO DAILY@2100 [facility] Last Admin: 05/05/21 21:03 Dose: 20 mg Documented by: Bisacodyl (Bisacodyl 5 Mg Tablet) 10 mg PO DAILY PRN; Protocol PRN Reason: Constipation (see protocol) Carvedilol (Carvedilol 12.5 Mg Tablet) 0 mg PO BID@0900,2100 [facility] Last Admin: 05/06/21 09:32 Dose: 12.5 mg Documented by: Clopidogrel Bisulfate (Clopidogrel 75 Mg Tablet) 75 mg PO DAILY [facility] Last Admin: 05/06/21 09:33 Dose: 75 mg Documented by: Cyanocobalamin (Cyanocobalamin 1,000 Mcg Tablet) 1,000 mcg PO DAILY [facility] Last Admin: 05/06/21 09:32 Dose: 1,000 mcg Documented by: Cyclobenzaprine HCl (Cyclobenzaprine 10 Mg Tablet) 5 mg PO TID PRN PRN Reason: MUSCLE SPASMS Last Admin: 05/06/21 11:31 Dose: 5 mg Documented by: Dextrose (Dextrose 50% Syringe 50 Ml) 25 ml IVP ONCE PRN; Protocol PRN Reason: hypoglycemia protocol Dextrose (Dextrose 50% Syringe 50 Ml) 50 ml IVP PRN PRN; Protocol PRN Reason: hypoglycemia protocol Enoxaparin Sodium (Enoxaparin 80 Mg/0.8 Ml Syringe) 80 mg SUBCUT Q12H [facility] Last Admin: 05/06/21 07:15 Dose: 80 mg Documented by: Furosemide (Furosemide 10 Mg/Ml Sdv 4ml) 40 mg IVP Q12H [facility] Last Admin: 05/06/21 14:03 Dose: Not Given Documented by: Glucagon (Glucagon 1 Mg/Ml Inj 1 Ml) 1 mg IM ONCE PRN; Protocol PRN Reason: Adult Acute Hypoglycemia Prot. Dextrose (D5w) 500 mls @ 100 mls/hr IV ONCE PRN; Protocol PRN Reason: Adult Acute Hypoglycemia Prot Sodium Chloride (Sodium Chloride 0.9%) 1,000 mls @ 70 mls/hr IV .[id number] [facility] Insulin Aspart (Insulin Aspart 100 Unit/1 Ml) 0 unit SUBCUT WM&BEDTIME [facility]; Protocol Last Admin: 05/06/21 11:31 Dose: 4 unit Documented by: Isosorbide Mononitrate (Isosorbide Mononitrate Er 60 Mg Tablet) 60 mg PO BID@0900,2100 [facility] Last Admin: 05/06/21 09:32 Dose: 60 mg Documented by: Levothyroxine Sodium (Levothyroxine 137 Mcg Tablet) 137 mcg PO DAILY@0530 [facility] Last Admin: 05/06/21 04:41 Dose: 137 mcg Documented by: Lorazepam (Lorazepam 2 Mg/Ml Inj 1 Ml) 1 mg IVP Q12H PRN PRN Reason: ANXIETY Nitroglycerin (Nitroglycerin 0.4 Mg Sublingual Tablet) 0.4 mg SUBLINGUAL Q5M PRN PRN Reason: CHEST PAINS Ondansetron HCl (Ondansetron 2 Mg/Ml Sdv 2 Ml) 4 mg IVP Q8H PRN PRN Reason: vomiting, or N/V if npo Last Admin: 05/05/21 23:21 Dose: 4 mg Documented by: Vitals/I&O/Wt Last Vital Signs Temp 98 F 05/05/21 19:52 Pulse 85 05/06/21 14:00 Resp 16 05/06/21 13:00 BP 115/45 05/06/21 13:00 Pulse Ox 99 05/06/21 13:00 05/06/21 05/06/21 05/06/21 06:59 14:59 22:59 Intake Total 200 / 1560 480 / 480 Output Total 2100 / 2700 1350 / 1350 Balance -1900 / -1140 -870 / -870 Weight last 48 hrs Weight 189 lb Weight 189 lb Physical Exam Narrative: EXAM NARRATIVE: GENERAL: The patient is alert and oriented times three. Not in any acute distress. HEENT: No significant pallor, icterus or lymphadenopathy. The pupils are reactant to light. Oral cavity: There are no mucous membrane lesions. Funduscopic examination: The fundus is not visualized NECK: Trachea appears to be central. No masses noted. No JVD or thyromegaly appreciated. No carotid bruit. RESPIRATORY: Chest is symmetrical. No intercostals muscle retraction or any accessory muscle activation. There is no chest wall tenderness. Breath sounds are heard bilaterally. No rales or rhonchi heard. No evidence of any consolidation. BREASTS: Deferred. HEART: The PMI could not be palpated. No other palpable precordial events. First heart sound is variable. Second heart sound is normal. No S3 or S4 heard. No pericardial rub or any click heard. Systolic murmur at the left sternal border. No diastolic murmurs. ABDOMEN: No vessel pulsations or distention. No tenderness. No organomegaly appreciated. No abdominal bruit. Bowel sounds are normally heard. : Deferred. RECTAL: Deferred. LYMPHATIC: No lymphadenopathy noted in the neck or groin. EXTREMITIES: No edema or cyanosis. No clubbing. The pulses are symmetrical bilaterally. The radial, femoral, dorsalis pedis and the posterior tibial pulses are palpated and found to be in good volume and amplitude. MUSCULOSKELETAL:No acute joint deformities or swelling SKIN: There are no significant scars or skin rash noted. NEUROPSYCHIATRIC: The patient is alert and oriented x3. She seems to be very anxious. The higher functions are grossly within normal limits. No tremors or rigidity noted. Urinary Catheter Management^: Long: Cath Placed During This Visit: yes Reason for Continuing Indwelling Catheter: Acute Urinary Retention or Obstruction Urinary Catheter Date of Insertion: 05/05/21 Urinary Catheter Time of Insertion: 16:26 Data : 05/06/21 04:26 05/06/21 04:26 A&P Assessment and plan (1) Non-ST elevation myocardial infarction (NSTEMI): Patient is a clinical features are suggestive of a non-ST elevation myocardial infarction. At this point, she is hemodynamically stable. this point, we may start her on subcu Lovenox, p.o. aspirin and topical nitrates. The beta-blockers may be continued. Also may be started on Plavix 300 mg p.o. now followed by 75 mg p.o. daily. The home medication may be continued. The dose of the Lovenox need to be adjusted for the kidney function. In view of the patient's ongoing symptoms of atypical chest pain and extreme weakness, for further evaluation of her coronary status as well as the graft status, a cardiac catheterization would be appropriate. The risk of bleeding, hematoma, vascular injury, myocardial infarction, CVA, renal failure and other concomitant complications were explained in detail. Because of the abnormal kidney function, she carries a high risk for contrast-induced nephropathy. This was explained in detail. Patient and her understand this well and would like to go ahead with the angiogram. We will do careful IV hydration in the morning. Plan to schedule the procedure sometime tomorrow afternoon. Status: Acute (2) Atypical chest pain: Her chest symptoms are very atypical. The tight feeling in the left side of the neck and the face, could be ischemic related. Status: Resolved (3) Atherosclerotic heart disease of [place] coronary artery with other forms of angina pectoris: As mentioned above. An echocardiogram would be helpful to evaluate the LV function and rule out any other pathology. Status: Acute (4) Atrial fibrillation: Patient is on long-term oral anticoagulation. The last dose of Eliquis was last evening. I may hold off on the Eliquis at this point. Agree with subcu Renettanox. We will go ahead and do an echocardiogram, to evaluate the LV function. Status: Acute Qualifiers: Atrial fibrillation type: unspecified chronic Qualified Code(s): I48.20 - Chronic atrial fibrillation, unspecified (5) Sleep apnea: Patient may continue on the current management. Status: Acute Qualifiers: Sleep apnea type: obstructive Qualified Code(s): G47.33 - Obstructive sleep apnea (adult) (pediatric) (6) Type 2 diabetes mellitus: Patient may continue on the current medications. Status: Acute Qualifiers: Diabetes mellitus terminal manager insulin use: without terminal manager use Diabetes mellitus complication status: with hyperglycemia Qualified Code(s): E11.65 - Type 2 diabetes mellitus with hyperglycemia (7) Benign essential hypertension with target blood pressure below 140/90: The blood pressure currently is currently in the normal range. May continue on the current medication. Status: Acute (8) Chronic kidney disease: The etiology of the chronic kidney disease is not known at this point. The diabetes could be accountability factor. Electrolytes need to be clear closely monitored Status: Acute Additional A&P Information Had echocardiogram today. I will review the echocardiogram . After reviewing the above and also based on the patient's clinical progress, further recommendations will be made. 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
--- NOTE | 2021-05-06 15:53 | P.PN_ITS ---
Subjective Subjective: Interval history: Patient was seen and examined this morning, complaining of back pain as well as fatigue. Medications: Reviewed: Yes Medication Review Details: Current Medications Acetaminophen (Acetaminophen 325 Mg Tablet) 650 mg PO Q6H PRN PRN Reason: Mild/Mod Pain Or Temp >/= 101 Atorvastatin Calcium (Atorvastatin 40 Mg Tablet) 20 mg PO DAILY@2100 [facility] Last Admin: 05/05/21 21:03 Dose: 20 mg Documented by: Bisacodyl (Bisacodyl 5 Mg Tablet) 10 mg PO DAILY PRN; Protocol PRN Reason: Constipation (see protocol) Carvedilol (Carvedilol 12.5 Mg Tablet) 0 mg PO BID@0900,2100 [facility] Last Admin: 05/06/21 09:32 Dose: 12.5 mg Documented by: Clopidogrel Bisulfate (Clopidogrel 75 Mg Tablet) 75 mg PO DAILY [facility] Last Admin: 05/06/21 09:33 Dose: 75 mg Documented by: Cyanocobalamin (Cyanocobalamin 1,000 Mcg Tablet) 1,000 mcg PO DAILY [facility] Last Admin: 05/06/21 09:32 Dose: 1,000 mcg Documented by: Cyclobenzaprine HCl (Cyclobenzaprine 10 Mg Tablet) 5 mg PO TID PRN PRN Reason: MUSCLE SPASMS Last Admin: 05/06/21 11:31 Dose: 5 mg Documented by: Dextrose (Dextrose 50% Syringe 50 Ml) 25 ml IVP ONCE PRN; Protocol PRN Reason: hypoglycemia protocol Dextrose (Dextrose 50% Syringe 50 Ml) 50 ml IVP PRN PRN; Protocol PRN Reason: hypoglycemia protocol Enoxaparin Sodium (Enoxaparin 80 Mg/0.8 Ml Syringe) 80 mg SUBCUT Q12H [facility] Last Admin: 05/06/21 07:15 Dose: 80 mg Documented by: Furosemide (Furosemide 10 Mg/Ml Sdv 4ml) 40 mg IVP Q12H [facility] Last Admin: 05/06/21 14:03 Dose: Not Given Documented by: Glucagon (Glucagon 1 Mg/Ml Inj 1 Ml) 1 mg IM ONCE PRN; Protocol PRN Reason: Adult Acute Hypoglycemia Prot. Dextrose (D5w) 500 mls @ 100 mls/hr IV ONCE PRN; Protocol PRN Reason: Adult Acute Hypoglycemia Prot Sodium Chloride (Sodium Chloride 0.9%) 1,000 mls @ 70 mls/hr IV .[id number] [facility] Insulin Aspart (Insulin Aspart 100 Unit/1 Ml) 0 unit SUBCUT WM&BEDTIME [facility]; Protocol Last Admin: 05/06/21 11:31 Dose: 4 unit Documented by: Isosorbide Mononitrate (Isosorbide Mononitrate Er 60 Mg Tablet) 60 mg PO BID@0900,2100 [facility] Last Admin: 05/06/21 09:32 Dose: 60 mg Documented by: Levothyroxine Sodium (Levothyroxine 137 Mcg Tablet) 137 mcg PO DAILY@0530 [facility] Last Admin: 05/06/21 04:41 Dose: 137 mcg Documented by: Lorazepam (Lorazepam 2 Mg/Ml Inj 1 Ml) 1 mg IVP Q12H PRN PRN Reason: ANXIETY Nitroglycerin (Nitroglycerin 0.4 Mg Sublingual Tablet) 0.4 mg SUBLINGUAL Q5M PRN PRN Reason: CHEST PAINS Ondansetron HCl (Ondansetron 2 Mg/Ml Sdv 2 Ml) 4 mg IVP Q8H PRN PRN Reason: vomiting, or N/V if npo Last Admin: 05/05/21 23:21 Dose: 4 mg Documented by: Vitals/I&O/Wt Last Vital Signs Temp 98 F 05/05/21 19:52 Pulse 85 05/06/21 14:00 Resp 16 05/06/21 13:00 BP 115/45 05/06/21 13:00 Pulse Ox 99 05/06/21 13:00 05/06/21 05/06/21 05/06/21 06:59 14:59 22:59 Intake Total 200 / 1560 480 / 480 Output Total 2100 / 2700 1350 / 1350 Balance -1900 / -1140 -870 / -870 Weight last 48 hrs Weight 85.729 kg Weight 85.729 kg Physical Exam Const: COMMON NORMALS: patient oriented x3 HENMT: COMMON NORMALS: normocephalic and atraumatic HEAD & SCALP: normocephalic and atraumatic Resp: EFFORT & INSPECTION: Yes symmetric chest movement, Yes abnormal respiratory pattern, Yes tachypneic, Yes respiratory distress and Yes labored AUSCULTATION: crackles and diminished lung sounds Cardio: COMMON NORMALS: regular rate, regular rhythm, S1 normal heart sound present, S2 normal heart sound present, No gallops present (Cardio), No murmurs present (Cardio), No rub (Cardio) and Peripheral pulses 2+ throughout RATE: regular rate RHYTHM: regular rhythm HEART SOUNDS: S1 normal heart sound present and S2 normal heart sound present PERIPHERAL PULSES: Peripheral pulses 2+ throughout GI: COMMON NORMALS: Normal to inspection, nondistended, normoactive bowel sounds present, Soft to palpation, non-tender, No hepatosplenomegaly present and no masses AUSCULTATION: Yes normoactive bowel sounds PALPATION: Yes Soft to palpation and Yes No hepatosplenomegaly present RECTAL EXAM: deferred Extremity: COMMON NORMALS: no clubbing, cyanosis or edema and no pedal edema Neuro: COMMON NORMALS: patient oriented x3 Urinary Catheter Management^: Long: Cath Placed During This Visit: yes Reason for Continuing Indwelling Catheter: Acute Urinary Retention or Obstruction Urinary Catheter Date of Insertion: 05/05/21 Urinary Catheter Time of Insertion: 16:26 Data : 05/06/21 04:26 05/06/21 04:26 A&P Assessment and plan (1) Non-ST elevation myocardial infarction (NSTEMI): NSTEMI: Type I versus type II: 2D echo: Lovenox 80 MG SC Q12 H Daily Plavix 75 mg oral daily Atorvastatin 20 mg p.o. daily Carvedilol 12.5 mg p.o. twice daily IMDUR 30 MG PO Daily Sublingual nitro as needed Cardiology consult Status: Acute (2) CHF (congestive heart failure), NYHA class I: Decompensated heart failure: Lasix 40 IV every 12 Intake output charting Daily weight Status: Acute (3) CKD (chronic kidney disease) stage 3, GFR 30-59 ml/min: Status: Acute (4) Atrial fibrillation: Currently rate controlled Status: Acute Qualifiers: Atrial fibrillation type: unspecified chronic Qualified Code(s): I48.20 - Chronic atrial fibrillation, unspecified (5) CAD (coronary artery disease): Status: Acute (6) Benign essential hypertension with target blood pressure below 140/90: Status: Acute (7) Type 2 diabetes mellitus: Status: Acute Qualifiers: Diabetes mellitus skilled nursing insulin use: without skilled nursing use Diabetes mellitus complication status: with hyperglycemia Qualified Code(s): E11.65 - Type 2 diabetes mellitus with hyperglycemia (8) Sleep apnea: Status: Acute Qualifiers: Sleep apnea type: obstructive Qualified Code(s): G47.33 - Obstructive sleep apnea (adult) (pediatric) Attestations Medical Necessity Statement*: Patient needs to be in hospital for management of NSTEMI. 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
--- NOTE | 2021-05-06 17:21 | PC.NURSE ---
Shift Note Frequent safety and comfort rounds continue. Orders and/or nursing care completed as indicated. Patient monitored for response to intervention and treatment(s). Education provided includes new medications flexaril and monitoring. Patient and/or site safety representative verbalized understanding. Will continue to monitor.
--- NOTE | 2021-05-06 18:04 | USCV_ITS ---
Jane Castillo Age: 75 Gender: F : 1945 Exam Date: 05/06/2021 12:42 Ordering Phys: Delfino Martinez MD Technologist: Sami Jenkins [place] [facility] [place]ication: SOB BP: 120 / HR: 76 Rhythm: Sinus Technical Quality: Adequate MEASUREMENTS (Male / Female) Normal Values 2D ECHO LV Diastolic Diameter PLAX 4.3 cm 4.2 - 5.9 / 3.9 - 5.3 cm LV Systolic Diameter PLAX 3.5 cm IVS Diastolic Thickness 1.9 cm 0.6 - 1.0 / 0.6 - 0.9 cm IVS Systolic Thickness 1.8 cm LVPW Diastolic Thickness 1.3 cm 0.6 - 1.0 / 0.6 - 0.9 cm LVPW Systolic Thickness 1.5 cm LVOT Diameter 2.1 cm LV Ejection Fraction 2D Teich 24.0 % LV Ejection Fraction MOD 2C 66.4 % LV Ejection Fraction 2C AL 65.8 % LA Diameter 5.0 cm LA Width 4.6 cm LA Height 5.7 cm RA Width 4.3 cm RA Height 4.4 cm Aorta at Sinotubular Diameter 2.9 cm DOPPLER AV Peak Velocity 121.0 cm/s LVOT Peak Velocity 77.0 cm/s AV Area Cont Eq vti 2.8 cm squared AV Area Cont Eq pk 2.2 cm squared MV Area PHT 5.0 cm squared Mitral E to A Ratio 1.7 MV E' Velocity 110.0 cm/s Mitral E to LV E' Septal Ratio 16.4 TR Peak Velocity 296.7 cm/s TR Peak Gradient 35.2 mmHg TV Peak E Velocity 97.0 cm/s Right Atrial Pressure 3.0 mmHg Pulmonary Artery Systolic Pressu 38.2 mmHg FINDINGS Left Ventricle Diffuse hypokinesia of the LV apex. LV ejection fraction around 50%(visual).Grade I/IV diastolic dysfunction (abnormal relaxation filling pattern), normal to mildly elevated filling pressures. Right Ventricle The right ventricle is normal in size and function. Right Atrium The right atrium is normal in size. Left Atrium Mildly increased left atrial size. Mitral Valve Thickened mitral valve. Mild mitral valve regurgitation. Aortic Valve Thickened aortic valve. Tricuspid Valve No gross abnormalities noted Pulmonic Valve Pulmonic valve not well visualized. Pericardium Normal pericardium without effusion. Aorta Normal aortic annulus size. CONCLUSIONS Diffuse hypokinesia of the LV apex. LV ejection fraction around 50%(visual). Grade I/IV diastolic dysfunction (abnormal relaxation filling pattern), normal to mildly elevated filling pressures. Mildly increased left atrial size. Thickened aortic and mitral valves. Mild mitral valve regurgitation. Technically difficult study because of the poor ultrasonic window. No previous study is available for comparison. Dr Sam Bishop MD FACC (Electronically Signed) Final Date: 07 May 2021 07:41 S
[2021-05-06 18:05] LABS: Glucose Point of Care 194 mg/dL (70-110)
[2021-05-06 21:13] LABS: Glucose Point of Care 170 mg/dL (70-110)
[2021-05-06] MEDS: atorvastatin 40 mg Tablet 20 MG PO (21:20)
[2021-05-07] VITALS (28 sets, daily range): BP systolic 118–186; BP diastolic 61–91; PULSE 73–95; RESP 16–22; TEMP 36.7–37.3; O2SAT 92–95
[2021-05-07] MEDS: levothyroxine 137 mcg Tablet PO (04:49)
[2021-05-07 05:19] LABS: Anion Gap 14.8 (5-19); Blood Urea Nitrogen 39 mg/dL (8-23); Calcium 9.1 mg/dL (8.5-10.5); Carbon Dioxide 29 mmol/L (22-29); Chloride 99 mmol/L (98-107); Glucose 141 mg/dL (65-115); Osmolality Calculated 298 mOsm/kg (285-295); Potassium 4.8 mmol/L (3.5-5.1); Sodium 138 mmol/L (136-145)
--- NOTE | 2021-05-07 06:01 | PC.NURSE ---
called Dr Bishop with results of BMP, received order to hold lovenox and lasix
[2021-05-07] MEDS: sodium chloride 0.9% 1,000 ML 70 ML IV (06:07)
[2021-05-07 06:48] LABS: Glucose Point of Care 133 mg/dL (70-110)
--- NOTE | 2021-05-07 07:20 | PC.NURSE ---
Shift Note Frequent safety and comfort rounds continue. Orders and/or nursing care completed as indicated. Patient monitored for response to intervention and treatment(s). Education provided includes plan of care. Patient and/or truck sales representative verbalized understanding. Will continue to monitor.
[2021-05-07] MEDS: cyanocobalamin 1,000 mcg Tablet 1000 MCG PO (08:46)
[2021-05-07] MEDS: clopidogrel 75 mg Tablet PO (08:46)
[2021-05-07] MEDS: carvedilol 12.5 mg Tablet PO ×2 (08:46→21:52)
[2021-05-07] MEDS: isosorbide mononitrate ER 60 mg Tablet PO ×2 (08:47→21:52)
--- NOTE | 2021-05-07 09:26 | ECG_ITS ---
[facility] Test Date: 2021-05-07 Pat Name: Jane Castillo Department: Room: 111 Gender: Female Extracorporeal Circulation Specialist: : 1945 Requested By: Sam Bishop Order Number: [id number] Reading MD: WHITLEY SHAH Measurements Intervals [place] Rate: 81 P: AL: QRS: 93 QRSD: 154 T: 198 QT: 467 QTc: 545 Interpretive Statements ATRIAL FIBRILLATION RIGHT BUNDLE BRANCH BLOCK [120+ ms QRS DURATION, UPRIGHT V1, 40+ ms S IN I/aVL/V4/V5/V6] MARKED T-WAVE ABNORMALITY, CONSIDER ANTEROLATERAL ISCHEMIA [-0.5+ mV T WAVE IN I/aVL/V3-V6] MODERATE T-WAVE ABNORMALITY, CONSIDER INFERIOR ISCHEMIA [-0.1+ mV T WAVE IN II/aVF] Compared to ECG 05/05/2021 23:13:21 T-wave abnormality now present Possible ischemia now present Right-axis deviation no longer present Electronically Signed On 05-07-2021 19:27:45 CDT by WHITLEY SHAH [email or web address]
[2021-05-07] MEDS: enoxaparin 40 mg/0.4 mL Syringe SUBCUT (10:29)
[2021-05-07 12:00] LABS: Glucose Point of Care 143 mg/dL (70-110)
--- NOTE | 2021-05-07 13:05 | P.PN_ITS ---
Subjective Subjective: Interval history: Patient was seen and examined this morning, complaining of left-sided jaw pain, as well as back pain.She was also complaining of dizziness this morning when she tries to sit up. Medications: Reviewed: Yes Medication Review Details: Current Medications Acetaminophen (Acetaminophen 325 Mg Tablet) 650 mg PO Q6H PRN PRN Reason: Mild/Mod Pain Or Temp >/= 101 Atorvastatin Calcium (Atorvastatin 40 Mg Tablet) 20 mg PO DAILY@2100 [facility] Last Admin: 05/05/21 21:03 Dose: 20 mg Documented by: Bisacodyl (Bisacodyl 5 Mg Tablet) 10 mg PO DAILY PRN; Protocol PRN Reason: Constipation (see protocol) Carvedilol (Carvedilol 12.5 Mg Tablet) 0 mg PO BID@0900,2100 [facility] Last Admin: 05/06/21 09:32 Dose: 12.5 mg Documented by: Clopidogrel Bisulfate (Clopidogrel 75 Mg Tablet) 75 mg PO DAILY [facility] Last Admin: 05/06/21 09:33 Dose: 75 mg Documented by: Cyanocobalamin (Cyanocobalamin 1,000 Mcg Tablet) 1,000 mcg PO DAILY [facility] Last Admin: 05/06/21 09:32 Dose: 1,000 mcg Documented by: Cyclobenzaprine HCl (Cyclobenzaprine 10 Mg Tablet) 5 mg PO TID PRN PRN Reason: MUSCLE SPASMS Last Admin: 05/06/21 11:31 Dose: 5 mg Documented by: Dextrose (Dextrose 50% Syringe 50 Ml) 25 ml IVP ONCE PRN; Protocol PRN Reason: hypoglycemia protocol Dextrose (Dextrose 50% Syringe 50 Ml) 50 ml IVP PRN PRN; Protocol PRN Reason: hypoglycemia protocol Enoxaparin Sodium (Enoxaparin 80 Mg/0.8 Ml Syringe) 80 mg SUBCUT Q12H [facility] Last Admin: 05/06/21 07:15 Dose: 80 mg Documented by: Furosemide (Furosemide 10 Mg/Ml Sdv 4ml) 40 mg IVP Q12H [facility] Last Admin: 05/06/21 14:03 Dose: Not Given Documented by: Glucagon (Glucagon 1 Mg/Ml Inj 1 Ml) 1 mg IM ONCE PRN; Protocol PRN Reason: Adult Acute Hypoglycemia Prot. Dextrose (D5w) 500 mls @ 100 mls/hr IV ONCE PRN; Protocol PRN Reason: Adult Acute Hypoglycemia Prot Sodium Chloride (Sodium Chloride 0.9%) 1,000 mls @ 70 mls/hr IV .[id number] [facility] Insulin Aspart (Insulin Aspart 100 Unit/1 Ml) 0 unit SUBCUT WM&BEDTIME [facility]; Protocol Last Admin: 05/06/21 11:31 Dose: 4 unit Documented by: Isosorbide Mononitrate (Isosorbide Mononitrate Er 60 Mg Tablet) 60 mg PO BID@0900,2100 [facility] Last Admin: 05/06/21 09:32 Dose: 60 mg Documented by: Levothyroxine Sodium (Levothyroxine 137 Mcg Tablet) 137 mcg PO DAILY@0530 [facility] Last Admin: 05/06/21 04:41 Dose: 137 mcg Documented by: Lorazepam (Lorazepam 2 Mg/Ml Inj 1 Ml) 1 mg IVP Q12H PRN PRN Reason: ANXIETY Nitroglycerin (Nitroglycerin 0.4 Mg Sublingual Tablet) 0.4 mg SUBLINGUAL Q5M PRN PRN Reason: CHEST PAINS Ondansetron HCl (Ondansetron 2 Mg/Ml Sdv 2 Ml) 4 mg IVP Q8H PRN PRN Reason: vomiting, or N/V if npo Last Admin: 05/05/21 23:21 Dose: 4 mg Documented by: Vitals/I&O/Wt Last Vital Signs Temp 98.1 F 05/07/21 04:00 Pulse 95 05/07/21 07:48 Resp 17 05/07/21 07:48 BP 142/63 05/07/21 07:48 Pulse Ox 94 05/07/21 07:48 05/06/21 05/07/21 05/07/21 22:59 06:59 14:59 Intake Total 240 / 720 Output Total 600 / 1950 600 / 2550 Balance -360 / -1230 -600 / -1830 Weight last 48 hrs Weight 85.729 kg Physical Exam Const: COMMON NORMALS: patient oriented x3 HENMT: COMMON NORMALS: normocephalic and atraumatic HEAD & SCALP: normocephalic and atraumatic Resp: EFFORT & INSPECTION: Yes symmetric chest movement, Yes abnormal respiratory pattern, Yes tachypneic, Yes respiratory distress and Yes labored AUSCULTATION: crackles and diminished lung sounds Cardio: COMMON NORMALS: regular rate, regular rhythm, S1 normal heart sound present, S2 normal heart sound present, No gallops present (Cardio), No murmurs present (Cardio), No rub (Cardio) and Peripheral pulses 2+ throughout RATE: regular rate RHYTHM: regular rhythm HEART SOUNDS: S1 normal heart sound present and S2 normal heart sound present PERIPHERAL PULSES: Peripheral pulses 2+ throughout GI: COMMON NORMALS: Normal to inspection, nondistended, normoactive bowel sounds present, Soft to palpation, non-tender, No hepatosplenomegaly present and no masses AUSCULTATION: Yes normoactive bowel sounds PALPATION: Yes Soft to palpation and Yes No hepatosplenomegaly present RECTAL EXAM: deferred Extremity: COMMON NORMALS: no clubbing, cyanosis or edema and no pedal edema Neuro: COMMON NORMALS: patient oriented x3 Urinary Catheter Management^: Long: Cath Placed During This Visit: yes Reason for Continuing Indwelling Catheter: Acute Urinary Retention or Obstruction Urinary Catheter Date of Insertion: 05/05/21 Urinary Catheter Time of Insertion: 16:26 Data : 05/06/21 04:26 05/07/21 04:33 A&P Assessment and plan (1) Non-ST elevation myocardial infarction (NSTEMI): NSTEMI: Type I versus type II: 2D echo:Diffuse hypokinesia of the LV apex. LV ejection fraction around 50%(vis ual). Grade I/IV diastolic dysfunction (abnormal relaxation filling pattern), normal to mildly elevated filling pressures. Mildly increased left atrial size. Thickened aortic and mitral valves. Mild mitral valve regurgitation. Lovenox 80 MG SC Q12 H Daily Plavix 75 mg oral daily Atorvastatin 20 mg p.o. daily Carvedilol 12.5 mg p.o. twice daily IMDUR 30 MG PO Daily Sublingual nitro as needed CA/15 : Appreciate cardiology input Status: Acute (2) CHF (congestive heart failure), NYHA class I: Decompensated heart failure: Lasix 40 IV every 12h ( Currently on hold ) Intake output charting Daily weight Status: Acute (3) CKD (chronic kidney disease) stage 3, GFR 30-59 ml/min: Status: Acute (4) Atrial fibrillation: Currently rate controlled Status: Acute Qualifiers: Atrial fibrillation type: unspecified chronic Qualified Code(s): I48.20 - Chronic atrial fibrillation, unspecified (5) CAD (coronary artery disease): Status: Acute (6) Benign essential hypertension with target blood pressure below 140/90: Status: Acute (7) Type 2 diabetes mellitus: Status: Acute Qualifiers: Diabetes mellitus complication status: with hyperglycemia Diabetes mellitus buttermaker insulin use: without buttermaker use Qualified Code(s): E11.65 - Type 2 diabetes mellitus with hyperglycemia (8) Sleep apnea: Status: Acute Qualifiers: Sleep apnea type: obstructive Qualified Code(s): G47.33 - Obstructive sleep apnea (adult) (pediatric) Attestations Medical Necessity Statement*: Patient needs too be in hospital for the management of NSTEMI. Coding Level of Care Code Acute Forestry Conservation Worker for Chg Fwd Exam Detailed Diagnoses Non-ST elevation myocardial infarction (NSTEMI) I21.4 CHF (congestive heart failure), NYHA class I I50.9 CKD (chronic kidney disease) stage 3, GFR 30-59 ml/min N18.30 Atrial fibrillation I48.20 Atrial fibrillation type: unspecified chronic CAD (coronary artery disease) I25.10 Benign essential hypertension with target blood pressure below 140/90 I10 Type 2 diabetes mellitus E11.65 Diabetes mellitus complication status: with hyperglycemia Diabetes mellitus buttermaker insulin use: without buttermaker use Sleep apnea G47.33 Sleep apnea type: obstructive
--- NOTE | 2021-05-07 16:17 | W.PM.OPSUD ---
Surgery/Procedure H&P Update DATE OF PROCEDURE: May 07, 2021 DATE H&P PERFORMED: 05/05/21 H&P UPDATE INFORMATION: I have reviewed H&P completed within last 30 days, I have examined patient prior to procedure and No changes to prior documentation PREOP DIAGNOSIS: NSTEMI PRIMARY INDICATION FOR PROCEDURE: ASHD, s/p three-vessel coronary artery bypass surgery, presenting with features of non-ST elevation myocardial infarction PLANNED PROCEDURE: Operation Date: 05/07/21 18:00 Proposed Procedures p Cardiac Catheterization(Left) - Sam Bishop MD PATIENT REASSESSED PRIOR TO SEDATION, WITH NO CHANGE NOTED: Yes PHYSICAL EXAM: alert, oriented x 3, clear to auscultation bilaterally and regular rate & rhythm AIRWAY EVAL/ANESTHESIA PLAN: normal airway, see other exam findings, ASA III, Local Anesthesia, Risks, benefits & alternatives of sedation and/or procedure discussed and Patient agrees to continue as planned
--- NOTE | 2021-05-07 16:30 | XACV_ITS ---
Exam Room: [facility] Ht: 157 cm Wt: 86 kg BSA: 1.98 m2 Gender: Female : 1945 Any Known Allergies: Other Exam Priority: Routine Procedure(s): Procedure Description: Diagnostic procedure Procedure Description: Left Heart Catheterization Procedure Description: Venous Graft Catheterization Procedure Description: SHINE Graft Catheterization Procedure Description: Coronary Angiography Diagnostic Cath Status: Urgent Diagnostic Findings * Coronary angiography shows right dominance. * The left main is a small to medium caliber vessel with no significant stenotic lesions. * The left hand recently artery is a medium caliber of which is subtotally occluded proximally and then totally occluded at the mid segment. * The left circumflex artery is totally occluded proximally. * Right coronary artery is a medium caliber dominant vessel which was found to have mild to moderate diffuse disease in the proximal and mid segment. The PDA and the PLV branches were found to have mild to moderate diffuse disease. One of the terminal branches of the PLV artery was found to have around 70% lesion. This is a relatively small caliber vessel.. * The saphenous venous graft to the obtuse marginal artery was found to be widely patent with no significant stenotic lesion. The obtuse marginal artery was found to be relatively small caliber vessel with diffuse intimal irregularities. * The saphenous venous graft to the diagonal branch is widely patent. The diagonal artery distal to the anastomosis was found to be relatively small caliber vessel with no significant stenotic lesion. PCI Status: Urgent Conclusions 1. Patient has prior CABG. 2. This is a 75-year-old white female with history of coronary disease, status post three-vessel coronary bypass surgery, presented with left arm pain, back pain and patient will discomfort. She had acute features of a non-ST elevation myocardial function. She also is known to have chronic atrial fibrillation and the was on oral anticoagulant. The anticoagulant is on hold for almost 3 days. The patient underwent left heart catheterization with left and right coronary angiogram and graft angiogram today. The findings are as follows.. 3. Small to medium caliber left main artery with no significant stenotic lesions. The left anterior artery subtotally occluded proximally and completely occluded in the midsegment. The right coronary artery has mild to moderate diffuse disease. The saphenous venous graft to the obtuse marginal artery and the diagonal artery were found to be patent. The [place] vessels distal to the anastomosis were found to have mild diffuse disease and relatively small caliber vessels. The SHINE to the LAD was found to be widely patent. Retrograde flow into the mid LAD was noted. LAD was found to have moderate to severe diffuse disease in this segment. 4. Based on the above angiogram findings, it was decided to the patient medically. The lesion in the PLV branch was found to be not ideal for PCI. Recommendations * Continue current medical management and risk factor modification. Interventional RX Recommendation: PCI w/o planned CABG Diagnostic RX Recommendation: PCI w/o planned CABG LV EDP: 20 mmHg Left Ventriculography Findings: * And LV gram was not performed because of the patient's chronic kidney disease. The LVEDP was found to be around 20 mmHg. Pressures Phase:Rest AO : 161 / 61 ( 91 ) @ 4:17:00 PM LV : 165 / 0 / 2 @ 4:15:00 PM 171 / -2 / 14 @ 4:16:00 PM Clinical Evaluation EBL: 5mL-10mL Procedural Details Procedure Consent Obtained. Admit Source: In Patient. Identified patient by full name and date of as verbalized by the patient/guarantor. Does the consent match the physician's order: Yes. Accurate & Complete Informed Consent: Yes. Inpatient/Outpatient History & Physical on Chart: Yes. If H&P is completed, is and addenduem needed: N/A; If yes, is the addendum complete: N/A. Visualize and Verify Site with Patient/Guarantor: N/A. The risks, benefits, and alternatives of sedation and/or procedure were discussed by physician. The patient agrees to continue. Procedure started. [facility] Clinical Fraility Score: 4: Vulnerable. Hydraulic Assembler Indications: Worsening Angina. Chest Pain Symptom Assessment: Atypical Angina. Correct patient, site and procedure confirmed by cath team. Current diagnosis: NSTEMI. PERRLA. Strong, equal hand separations scientist bilaterally. Lungs clear x 5 lobes. IV Site on Arrival: 18 gauge in the right forearm. Physician notified. IV Fluids: 0.9% NaCl at KVO. 75 mL infused prior to syrup machine laborer. Oxygen started at 2liters/min via nasal canula. right groin was prepped with chloroprep then draped in the usual sterile fashion. Baseline sample Acquired. HR: 83 BPM. Physician arrived. Physician scrubbed in. Immediate Pre-Procedure Time Out. Correct Patient: Yes; Correct Procedure: Yes; Correct Site: Yes; Correct Patient Position: Yes; Correct Supplies: Yes; Dried Flammable Prep: Yes; Blood Products Available: N/A;. Lidocaine 1% infiltrated to the right groin. Arterial access obtained with micropuncture set. A 5 russian JL4 catheter in over wire. Multiple views taken of left coronary artery. Catheter out. A 5 russian JR4 catheter in over wire. Multiple views taken of right coronary artery. Catheter redirected to SVG. SVG to OM visualized and patent. SVG to Diaganol visualized and patent. Catheter removed over the standard wire. A 5 russian IM catheter in over wire. SHINE to LAD visualized. Catheter removed over the standard wire. EDP Sample taken: LV 165/-1,2; HR: 101 BPM; SpO2: 98%. EDP Sample taken: LV 171/-3,14; HR: 76 BPM; SpO2: Off%. Pullback taken: LV Off; AO Off; Mean: , Peak to Peak: , SEP: ; HR: 102 BPM; SpO2: 98%. A 5 russian Angled Pig catheter in over wire. Catheter removed over the standard wire. A Suture was successful obtaining hemostatsis at the Right Femoral artery insertion site. Sheath(s) sutured into position with 2-0 silk and sterile 4x4's and Op-site applied over the site. No oozing or signs and symptoms of hematoma noted. Post Procedure: Pulses reassessed and unchanged. PERRLA. Strong, equal hand separations scientist bilaterally. No VTE prophylaxis required. Medication's Wasted: Lidocaine 1% = 3 mL. Medication's Wasted: Heparin = 3000 u. Total IV fluids: 61 mL. Post-op diagnosis: Severe two vessel CAD. Estimated blood loss: 5mL-10mL. Procedure completed. Patient transferred by stretcher to ICU. Patient transferred by bed to 1st floor. Vital chart was stopped. Access Site Site: Right Femoral artery Sheath Size: 5 Fr Hemostasis Method: Suture Hemostasis Success: Successful Procedure Medications Start: 4:47 PM Stop: 4:47 PM Medication: Versed Amount: 1 mg Route: I.V. Start: 4:47 PM Stop: 4:47 PM Medication: Fentanyl Amount: 50 mcg Route: I.V. Start: 4:59 PM Stop: 4:59 PM Medication: Versed Amount: 1 mg Route: I.V. Start: 5:03 PM Stop: 5:03 PM Medication: Heparin Amount: 1500 units Route: I.V. Start: 5:18 PM Stop: 5:18 PM Medication: Lopressor (metoprolol) Amount: 5 mg Route: I.V. I, the attending physician, have reviewed and verified all procedure medications. Yes, all medications given per verbal order History/Risk Factors Hypertension: Yes Dyslipidemia: No Peripheral Arterial Disease (PAD): No Myocardial Infarction (GA): No Obesity: Yes Renal Disease: No Tobacco Use: Never Prior Interventions PCI: No CABG: Yes Valve Surgery: No Report Signatures Finalized by Dr Sam Bishop MD [facility] on 05/08/2021 01:03 AM
[2021-05-07] MEDS: sodium chloride 0.45% 1,000 ML 100 ML IV (18:45)
[2021-05-07] MEDS: acetaminophen 325 mg Tablet 650 MG PO (20:02)
[2021-05-07 21:08] LABS: Partial Thromboplastin Time 38.1 SECONDS (23.9-36.7)
[2021-05-07] MEDS: atorvastatin 40 mg Tablet 20 MG PO (21:52)
[2021-05-07 22:20] LABS: Glucose Point of Care 137 mg/dL (70-110)
[2021-05-08] VITALS (11 sets, daily range): BP systolic 120–165; BP diastolic 58–89; PULSE 71–81; RESP 14–19; TEMP 36.5; O2SAT 94–97
[2021-05-08 04:53] LABS: Basophils % 0.6 %; Eosinophils # 0.2 10^3/uL (0.0-0.8); Eosinophils % 4.5 %; Hemoglobin 10.4 g/dL (11.5-15.3); Lymphocytes # 1.3 10^3/uL (0.8-4.8); Mean Corpuscular HGB Conc 30.6 g/dL (30.0-36.0); Mean Corpuscular Hemoglobin 26.9 pg (28.0-34.0); Mean Corpuscular Volume 88.1 fl (81-99); Mean Platelet Volume 11.7 fL (7.4-10.4); Monocytes # 0.4 10^3/uL (0.2-0.9); Monocytes % 8.5 %; Neutrophils # 2.97 10^3/uL (1.8-7.7); Neutrophils % 60.2 %; Nucleated Red Blood Cells % 0 %; Platelet Count 230 10^3/cmm (130-400); Red Blood Count 3.86 10^6/uL (4.1-5.3); Red Cell Distribution Width 15.4 % (12.1-15.1); White Blood Count 4.9 10^3/uL (4.0-10.0)
[2021-05-08] MEDS: levothyroxine 137 mcg Tablet PO (05:07)
[2021-05-08 05:12] LABS: Anion Gap 14.3 (5-19); Blood Urea Nitrogen 28 mg/dL (8-23); Calcium 8.7 mg/dL (8.5-10.5); Carbon Dioxide 27 mmol/L (22-29); Chloride 103 mmol/L (98-107); Glucose 107 mg/dL (65-115); Osmolality Calculated 296 mOsm/kg (285-295); Potassium 4.3 mmol/L (3.5-5.1); Sodium 140 mmol/L (136-145)
[2021-05-08 06:25] LABS: Glucose Point of Care 126 mg/dL (70-110)
[2021-05-08] MEDS: FUROsemide 10 mg/mL SDV 4mL 40 MG IVP (08:47)
[2021-05-08] MEDS: clopidogrel 75 mg Tablet PO (08:47)
[2021-05-08] MEDS: isosorbide mononitrate ER 60 mg Tablet PO (08:47)
[2021-05-08] MEDS: carvedilol 12.5 mg Tablet PO (08:47)
[2021-05-08] MEDS: cyanocobalamin 1,000 mcg Tablet 1000 MCG PO (08:49)
[2021-05-08] MEDS: enoxaparin 40 mg/0.4 mL Syringe SUBCUT (11:14)
[2021-05-08 11:25] LABS: Glucose Point of Care 184 mg/dL (70-110)
--- NOTE | 2021-05-08 11:31 | PC.SOCIAL ---
Pg 2 IMM Explained to pt Pg 2 IMM. No questions voiced. Provided pt a copy. Initialed, dated, & timed a copy & placed in chart.
--- NOTE | 2021-05-08 12:29 | PM.PN ---
Subjective Subjective: Interval history: Patient was seen and examined this morning, complaining of left-sided jaw pain, as well as back pain.She was also complaining of dizziness this morning when she tries to sit up. Medications: Reviewed: Yes Medication Review Details: Current Medications Acetaminophen (Acetaminophen 325 Mg Tablet) 650 mg PO Q6H PRN PRN Reason: Mild/Mod Pain Or Temp >/= 101 Atorvastatin Calcium (Atorvastatin 40 Mg Tablet) 20 mg PO DAILY@2100 [facility] Last Admin: 05/05/21 21:03 Dose: 20 mg Documented by: Bisacodyl (Bisacodyl 5 Mg Tablet) 10 mg PO DAILY PRN; Protocol PRN Reason: Constipation (see protocol) Carvedilol (Carvedilol 12.5 Mg Tablet) 0 mg PO BID@0900,2100 [facility] Last Admin: 05/06/21 09:32 Dose: 12.5 mg Documented by: Clopidogrel Bisulfate (Clopidogrel 75 Mg Tablet) 75 mg PO DAILY [facility] Last Admin: 05/06/21 09:33 Dose: 75 mg Documented by: Cyanocobalamin (Cyanocobalamin 1,000 Mcg Tablet) 1,000 mcg PO DAILY [facility] Last Admin: 05/06/21 09:32 Dose: 1,000 mcg Documented by: Cyclobenzaprine HCl (Cyclobenzaprine 10 Mg Tablet) 5 mg PO TID PRN PRN Reason: MUSCLE SPASMS Last Admin: 05/06/21 11:31 Dose: 5 mg Documented by: Dextrose (Dextrose 50% Syringe 50 Ml) 25 ml IVP ONCE PRN; Protocol PRN Reason: hypoglycemia protocol Dextrose (Dextrose 50% Syringe 50 Ml) 50 ml IVP PRN PRN; Protocol PRN Reason: hypoglycemia protocol Enoxaparin Sodium (Enoxaparin 80 Mg/0.8 Ml Syringe) 80 mg SUBCUT Q12H [facility] Last Admin: 05/06/21 07:15 Dose: 80 mg Documented by: Furosemide (Furosemide 10 Mg/Ml Sdv 4ml) 40 mg IVP Q12H [facility] Last Admin: 05/06/21 14:03 Dose: Not Given Documented by: Glucagon (Glucagon 1 Mg/Ml Inj 1 Ml) 1 mg IM ONCE PRN; Protocol PRN Reason: Adult Acute Hypoglycemia Prot. Dextrose (D5w) 500 mls @ 100 mls/hr IV ONCE PRN; Protocol PRN Reason: Adult Acute Hypoglycemia Prot Sodium Chloride (Sodium Chloride 0.9%) 1,000 mls @ 70 mls/hr IV .[id number] [facility] Insulin Aspart (Insulin Aspart 100 Unit/1 Ml) 0 unit SUBCUT WM&BEDTIME [facility]; Protocol Last Admin: 05/06/21 11:31 Dose: 4 unit Documented by: Isosorbide Mononitrate (Isosorbide Mononitrate Er 60 Mg Tablet) 60 mg PO BID@0900,2100 [facility] Last Admin: 05/06/21 09:32 Dose: 60 mg Documented by: Levothyroxine Sodium (Levothyroxine 137 Mcg Tablet) 137 mcg PO DAILY@0530 [facility] Last Admin: 05/06/21 04:41 Dose: 137 mcg Documented by: Lorazepam (Lorazepam 2 Mg/Ml Inj 1 Ml) 1 mg IVP Q12H PRN PRN Reason: ANXIETY Nitroglycerin (Nitroglycerin 0.4 Mg Sublingual Tablet) 0.4 mg SUBLINGUAL Q5M PRN PRN Reason: CHEST PAINS Ondansetron HCl (Ondansetron 2 Mg/Ml Sdv 2 Ml) 4 mg IVP Q8H PRN PRN Reason: vomiting, or N/V if npo Last Admin: 05/05/21 23:21 Dose: 4 mg Documented by: Vitals/I&O/Wt Last Vital Signs Temp 97.7 F 05/08/21 04:00 Pulse 73 05/08/21 10:11 Resp 16 05/08/21 08:00 BP 125/67 05/08/21 08:00 Pulse Ox 95 05/08/21 10:11 05/07/21 05/08/21 05/08/21 22:59 06:59 14:59 Intake Total 1999 / 1999 Output Total 1200 / 1200 700 / 700 Balance 800 / 800 -700 / -700 Physical Exam Const: COMMON NORMALS: patient oriented x3 HENMT: COMMON NORMALS: normocephalic and atraumatic HEAD & SCALP: normocephalic and atraumatic Resp: EFFORT & INSPECTION: Yes symmetric chest movement, Yes abnormal respiratory pattern, Yes tachypneic, Yes respiratory distress and Yes labored AUSCULTATION: crackles and diminished lung sounds Cardio: COMMON NORMALS: regular rate, regular rhythm, S1 normal heart sound present, S2 normal heart sound present, No gallops present (Cardio), No murmurs present (Cardio), No rub (Cardio) and Peripheral pulses 2+ throughout RATE: regular rate RHYTHM: regular rhythm HEART SOUNDS: S1 normal heart sound present and S2 normal heart sound present PERIPHERAL PULSES: Peripheral pulses 2+ throughout GI: COMMON NORMALS: Normal to inspection, nondistended, normoactive bowel sounds present, Soft to palpation, non-tender, No hepatosplenomegaly present and no masses AUSCULTATION: Yes normoactive bowel sounds PALPATION: Yes Soft to palpation and Yes No hepatosplenomegaly present RECTAL EXAM: deferred Extremity: COMMON NORMALS: no clubbing, cyanosis or edema and no pedal edema Neuro: COMMON NORMALS: patient oriented x3 Urinary Catheter Management^: Long: Cath Placed During This Visit: yes, but has since been removed by the nurse Reason for Continuing Indwelling Catheter: Accurate Measurement of Urinary Output in Critically Ill Patients Urinary Catheter Date of Insertion: 05/05/21 Urinary Catheter Time of Insertion: 16:26 Date Urinary Catheter Removed: 05/08/21 Time Urinary Catheter Discontinued: 11:13 Data : 05/08/21 04:16 05/08/21 04:16 A&P Assessment and plan (1) Non-ST elevation myocardial infarction (NSTEMI): NSTEMI: Type I versus type II: 2D echo:Diffuse hypokinesia of the LV apex. LV ejection fraction around 50%(visual). Grade I/IV diastolic dysfunction (abnormal relaxation filling pattern), normal to mildly elevated filling pressures. Mildly increased left atrial size. Thickened aortic and mitral valves. Mild mitral valve regurgitation. Lovenox 80 MG SC Q12 H Daily Plavix 75 mg oral daily Atorvastatin 20 mg p.o. daily Carvedilol 12.5 mg p.o. twice daily IMDUR 30 MG PO Daily Sublingual nitro as needed CA/15 : Appreciate cardiology input Status: Acute (2) CHF (congestive heart failure), NYHA class I: Decompensated heart failure: Lasix 40 IV every 12h ( Currently on hold ) Intake output charting Daily weight Status: Acute (3) CKD (chronic kidney disease) stage 3, GFR 30-59 ml/min: Status: Acute (4) Atrial fibrillation: Currently rate controlled Status: Acute Qualifiers: Atrial fibrillation type: unspecified chronic Qualified Code(s): I48.20 - Chronic atrial fibrillation, unspecified (5) CAD (coronary artery disease): Status: Acute (6) Benign essential hypertension with target blood pressure below 140/90: Status: Acute (7) Type 2 diabetes mellitus: Status: Acute Qualifiers: Diabetes mellitus senior living insulin use: without termite treater use Diabetes mellitus complication status: with hyperglycemia Qualified Code(s): E11.65 - Type 2 diabetes mellitus with hyperglycemia (8) Sleep apnea: Status: Acute Qualifiers: Sleep apnea type: obstructive Qualified Code(s): G47.33 - Obstructive sleep apnea (adult) (pediatric) Coding Level of Care Code Acute Medical Asst for g Fwd Diagnoses Non-ST elevation myocardial infarction (NSTEMI) I21.4 CHF (congestive heart failure), NYHA class I I50.9 CKD (chronic kidney disease) stage 3, GFR 30-59 ml/min N18.30 Atrial fibrillation I48.20 Atrial fibrillation type: unspecified chronic CAD (coronary artery disease) I25.10 Benign essential hypertension with target blood pressure below 140/90 I10 Type 2 diabetes mellitus E11.65 Diabetes mellitus senior living insulin use: without termite treater use Diabetes mellitus complication status: with hyperglycemia Sleep apnea G47.33 Sleep apnea type: obstructive
--- NOTE | 2021-05-08 14:47 | PM.PN ---
Subjective Subjective: Interval history: Patient is feeling okay. No chest pain no shortness of breath. Has been ambulating on telemetry. Had the cardiac catheterization yesterday. She was found to have patent venous graft to the diagonal, obtuse marginal and SHINE to the LAD. Based on the angiogram findings, it was opted to treat her medically. Medications: Reviewed: Yes Medication Review Details: Current Medications Acetaminophen (Acetaminophen 325 Mg Tablet) 650 mg PO Q6H PRN PRN Reason: Mild/Mod Pain Or Temp >/= 101 Last Admin: 05/07/21 20:02 Dose: 650 mg Documented by: Al Hydrox/Mg Hydrox/Simethicone (Iirt-Dot-Zflzcctds-Tammy 30 Ml Udc) 30 ml PO Q15M PRN PRN Reason: INDIGESTION Atorvastatin Calcium (Atorvastatin 40 Mg Tablet) 20 mg PO DAILY@2100 [facility] Last Admin: 05/07/21 21:52 Dose: 20 mg Documented by: Atropine Sulfate (Atropine 1 Mg/Ml Sdv 1 Ml) 0.5 mg IVP PRN PRN PRN Reason: Symptomatic bradycardia Bisacodyl (Bisacodyl 5 Mg Tablet) 10 mg PO DAILY PRN; Protocol PRN Reason: Constipation (see protocol) Carvedilol (Carvedilol 12.5 Mg Tablet) 0 mg PO BID@0900,2100 [facility] Last Admin: 05/08/21 08:47 Dose: 19 mg Documented by: Clopidogrel Bisulfate (Clopidogrel 75 Mg Tablet) 75 mg PO DAILY [facility] Last Admin: 05/08/21 08:47 Dose: 75 mg Documented by: Cyanocobalamin (Cyanocobalamin 1,000 Mcg Tablet) 1,000 mcg PO DAILY [facility] Last Admin: 05/08/21 08:49 Dose: 1,000 mcg Documented by: Cyclobenzaprine HCl (Cyclobenzaprine 10 Mg Tablet) 5 mg PO TID PRN PRN Reason: MUSCLE SPASMS Last Admin: 05/06/21 11:31 Dose: 5 mg Documented by: Dextrose (Dextrose 50% Syringe 50 Ml) 25 ml IVP ONCE PRN; Protocol PRN Reason: hypoglycemia protocol Dextrose (Dextrose 50% Syringe 50 Ml) 50 ml IVP PRN PRN; Protocol PRN Reason: hypoglycemia protocol Enoxaparin Sodium (Enoxaparin 40 Mg/0.4 Ml Syringe) 40 mg SUBCUT Q24H [facility] Last Admin: 05/08/21 11:14 Dose: 40 mg Documented by: Furosemide (Furosemide 10 Mg/Ml Sdv 4ml) 40 mg IVP Q12H [facility] Last Admin: 05/08/21 08:47 Dose: 40 mg Documented by: Glucagon (Glucagon 1 Mg/Ml Inj 1 Ml) 1 mg IM ONCE PRN; Protocol PRN Reason: Adult Acute Hypoglycemia Prot. Dextrose (D5w) 500 mls @ 100 mls/hr IV ONCE PRN; Protocol PRN Reason: Adult Acute Hypoglycemia Prot Insulin Aspart (Insulin Aspart 100 Unit/1 Ml) 0 unit SUBCUT WM&BEDTIME [facility]; Protocol Last Admin: 05/08/21 11:50 Dose: 4 unit Documented by: Isosorbide Mononitrate (Isosorbide Mononitrate Er 60 Mg Tablet) 60 mg PO BID@0900,2100 [facility] Last Admin: 05/08/21 08:47 Dose: 60 mg Documented by: Levothyroxine Sodium (Levothyroxine 137 Mcg Tablet) 137 mcg PO DAILY@0530 [facility] Last Admin: 05/08/21 05:07 Dose: 137 mcg Documented by: Lorazepam (Lorazepam 2 Mg/Ml Inj 1 Ml) 1 mg IVP Q12H PRN PRN Reason: ANXIETY Magnesium Hydroxide (Magnesium Hydroxide 30 Ml Udc) 30 ml PO DAILY PRN PRN Reason: CONSTIPATION Naloxone HCl (Naloxone 0.4 Mg/Ml Sdv) 0.1 mg IVP Q2M PRN PRN Reason: RESPIRATORY RATE < 8/MIN Nitroglycerin (Nitroglycerin 0.4 Mg Sublingual Tablet) 0.4 mg SUBLINGUAL Q5M PRN PRN Reason: CHEST PAINS Ondansetron HCl (Ondansetron 2 Mg/Ml Sdv 2 Ml) 4 mg IVP Q8H PRN PRN Reason: vomiting, or N/V if npo Last Admin: 05/05/21 23:21 Dose: 4 mg Documented by: Vitals/I&O/Wt Last Vital Signs Temp 97.7 F 05/08/21 04:00 Pulse 73 05/08/21 10:11 Resp 16 05/08/21 08:00 BP 125/67 05/08/21 08:00 Pulse Ox 95 05/08/21 10:11 05/07/21 05/08/21 05/08/21 22:59 06:59 14:59 Intake Total 1999 / 1999 360 / 360 Output Total 1200 / 1200 700 / 700 Balance 800 / 800 -340 / -340 Physical Exam Narrative: EXAM NARRATIVE: GENERAL: The patient is alert and oriented times three. Not in any acute distress. HEENT: No significant pallor, icterus or lymphadenopathy. The pupils are reactant to light. Oral cavity: There are no mucous membrane lesions. NECK: Trachea appears to be central. No masses noted. No JVD or thyromegaly appreciated. No carotid bruit. RESPIRATORY: Chest is symmetrical. No intercostals muscle retraction or any accessory muscle activation. There is no chest wall tenderness. Breath sounds are heard bilaterally. No rales or rhonchi heard. No evidence of any consolidation. BREASTS: Deferred. HEART: The PMI could not be palpated. No other palpable precordial events. First heart sound is variable. Second heart sound is normal. No S3 or S4 heard. No pericardial rub or any click heard. Systolic murmur at the left sternal border. No diastolic murmurs. ABDOMEN: No vessel pulsations or distention. No tenderness. No organomegaly appreciated. No abdominal bruit. Bowel sounds are normally heard. : Deferred. RECTAL: Deferred. LYMPHATIC: No lymphadenopathy noted in the neck or groin. EXTREMITIES: No edema or cyanosis. Right groin has no hematoma or bleeding. MUSCULOSKELETAL:No acute joint deformities or swelling SKIN: There are no significant scars or skin rash noted. NEUROPSYCHIATRIC: The patient is alert and oriented x3. She seems to be very anxious. The higher functions are grossly within normal limits. No tremors or rigidity noted. Const: COMMON NORMALS: alert Resp: COMMON NORMALS: clear to auscultation bilaterally AUSCULTATION: clear to auscultation bilaterally Neuro: SENSORIUM/ORIENTATION: Yes alert Urinary Catheter Management^: Long: Cath Placed During This Visit: yes, but has since been removed by the nurse Reason for Continuing Indwelling Catheter: Accurate Measurement of Urinary Output in Critically Ill Patients Urinary Catheter Date of Insertion: 05/05/21 Urinary Catheter Time of Insertion: 16:26 Date Urinary Catheter Removed: 05/08/21 Time Urinary Catheter Discontinued: 11:13 Data : 05/08/21 04:16 05/08/21 04:16 A&P Assessment and plan (1) Non-ST elevation myocardial infarction (NSTEMI): Patient has progression of disease in the [place] vessels. The bypass graft were found to be patent. Based on the above angiographic findings, optimizing the medical treatment would be the plan of action. I may start her on Ranexa 1000 mg p.o. twice daily. Apparently she was on this medication and for some unknown reason it was discontinued. According the patient, the physician made a thought that this might be causing some side effects. But as far as she is concerned, Ranexa was not the culprit. She would like to go back on it. Status: Acute (2) Atypical chest pain: Currently the symptoms are resolved. Continue other medications as mentioned above. Status: Resolved (3) Atherosclerotic heart disease of [place] coronary artery with other forms of angina pectoris: As mentioned above. Because of the non-ST elevation myocardial infarction, patient may be kept on Plavix 75 mg p.o. daily for a month. Status: Acute (4) Atrial fibrillation: Patient may be placed back on the Eliquis 5 mg p.o. twice daily, starting tomorrow Status: Acute Qualifiers: Atrial fibrillation type: unspecified chronic Qualified Code(s): I48.20 - Chronic atrial fibrillation, unspecified (5) Sleep apnea: Patient may continue on the current management. Status: Acute Qualifiers: Sleep apnea type: obstructive Qualified Code(s): G47.33 - Obstructive sleep apnea (adult) (pediatric) (6) Type 2 diabetes mellitus: Patient may continue on the current medications. Status: Acute Qualifiers: Diabetes mellitus complication status: with hyperglycemia Diabetes mellitus watermaster insulin use: without watermaster use Qualified Code(s): E11.65 - Type 2 diabetes mellitus with hyperglycemia (7) Benign essential hypertension with target blood pressure below 140/90: The blood pressure currently is currently in the normal range. May continue on the current medication. Status: Acute (8) Chronic kidney disease: Her BUN and creatinine has improved. May continue on the current medications. Status: Acute Additional A&P Information If the patient continues remain stable, may be discharged home today. Attestations Medical Necessity Statement*: Possible discharge home today. Patient need [facility]. She will keep her follow-up appointments with her surgical product sales consultant, Dr. Meyer at the [facility] in [place]. Coding Level of Care Code Acute Experimental Rocketsled Mechanic for Chg Fwd Exam Expanded Problem Focused Diagnoses Non-ST elevation myocardial infarction (NSTEMI) I21.4 Atypical chest pain R07.89 Atherosclerotic heart disease of [place] coronary artery with other forms of angina pectoris I25.118 Atrial fibrillation I48.20 Atrial fibrillation type: unspecified chronic Sleep apnea G47.33 Sleep apnea type: obstructive Type 2 diabetes mellitus E11.65 Diabetes mellitus complication status: with hyperglycemia Diabetes mellitus watermaster insulin use: without watermaster use Benign essential hypertension with target blood pressure below 140/90 I10 Chronic kidney disease N18.9
--- NOTE | 2021-05-08 14:52 | PM.DCS ---
Discharge Providers Date of Admission: 05/05/21 17:56 Date of Discharge: May 08, 2021 Attending Provider at Admission: Delfino Mratinez MD Attending Provider at Discharge: Delfino Martinez MD Primary Care Provider: Jermaine Roca DO Diagnoses at Discharge Discharge Diagnosis (1) Non-ST elevation myocardial infarction (NSTEMI): (2) Atypical chest pain: (3) Atherosclerotic heart disease of [place] coronary artery with other forms of angina pectoris: (4) Atrial fibrillation: Permanent problem details: On Eliquis and dofetilide Qualifiers: Atrial fibrillation type: unspecified chronic Qualified Code(s): I48.20 - Chronic atrial fibrillation, unspecified (5) Sleep apnea: Qualifiers: Sleep apnea type: obstructive Qualified Code(s): G47.33 - Obstructive sleep apnea (adult) (pediatric) (6) Type 2 diabetes mellitus: Qualifiers: Diabetes mellitus complication status: with hyperglycemia Diabetes mellitus terminal press operator insulin use: without care home use Qualified Code(s): E11.65 - Type 2 diabetes mellitus with hyperglycemia (7) Benign essential hypertension with target blood pressure below 140/90: (8) Chronic kidney disease: Reason for Visit Reason for Visit: WEAKNESS Hospital Course Hospital Course Jane Castillo is a 75 year old female with past medical history of hypertension diabetes coronary artery disease status post CABG, A. fib, sleep apnea, was brought in with chief complaint of generalized weakness and difficulty walking.She took couple muscle relaxers yesterday late afternoon and this morning when she woke up she was experiencing generalized weakness and difficulty walking.When I Examined the patient she was complaining of left-sided neck pain, as well as left-sided jaw pain, of mild intensity. upon arrival in the ER she was worked up for above-mentioned complaint. Imaging studies: CT head without contrast: No acute intracranial pathology. X-ray chest: Pulmonary vascular congestion, no infiltrates. EKG: Atrial fibrillation with right bundle branch block. ABG: pH 7.30 PCO2 :53, PO2: 83 FiO2:28 % Pertinent labs: WBC: 8.3, H&H:10.5/34, platelet count: 297, serum sodium 141, potassium 4.9, BUN/ serum creatinine : 50/1.3. Troponin trend: with significant delta proBNP:7798. She was admitted for management of NSTEMI, and decompensated heart failure with preserved ejection fraction. Initially she was kept on ACS protocol. During the hospital stay she underwent cardiac cath with patent coronary graft, nonocclusive coronary artery disease, 2D echo was also done:Diffuse hypokinesia of the LV apex. LV ejection fraction around 50%(visual). Grade I/IV diastolic dysfunction (abnormal relaxation filling pattern), normal to mildly elevated filling pressures. Mildly increased left atrial size. Thickened aortic and mitral valves. Mild mitral valve regurgitation.Ranexa, was added to her other existing cardiac medications. She responded well to IV diuresis, at the time of discharge she was euvolemic, saturating well on room air. She was discharged on p.o. Lasix. For history of atrial fibrillation rate was well controlled, on tisha blocking agent, Eliquis was continued on discharge. Cardiology was on board. Patient responded well to the above medical management.And is being discharged in stable condition to home. Patient will continue to follow Dr. Burks in [place] as an outpatient. Physical Exam HENMT: COMMON NORMALS: normocephalic and atraumatic HEAD & SCALP: normocephalic and atraumatic Resp: EFFORT & INSPECTION: Yes symmetric chest movement Cardio: COMMON NORMALS: regular rate, regular rhythm, S1 normal heart sound present, S2 normal heart sound present, No gallops present (Cardio), No murmurs present (Cardio), No rub (Cardio) and Peripheral pulses 2+ throughout RATE: regular rate RHYTHM: regular rhythm HEART SOUNDS: S1 normal heart sound present and S2 normal heart sound present PERIPHERAL PULSES: Peripheral pulses 2+ throughout GI: COMMON NORMALS: Normal to inspection, nondistended, normoactive bowel sounds present, Soft to palpation, non-tender, No hepatosplenomegaly present and no masses AUSCULTATION: Yes normoactive bowel sounds PALPATION: Yes Soft to palpation and Yes No hepatosplenomegaly present RECTAL EXAM: deferred Extremity: COMMON NORMALS: no clubbing, cyanosis or edema and no pedal edema Urinary Catheter Management^: Long: Cath Placed During This Visit: yes, but has since been removed by the nurse Reason for Continuing Indwelling Catheter: Accurate Measurement of Urinary Output in Critically Ill Patients Urinary Catheter Date of Insertion: 05/05/21 Urinary Catheter Time of Insertion: 16:26 Date Urinary Catheter Removed: 05/08/21 Time Urinary Catheter Discontinued: 11:13 Discharge Data Data Completed and Pending: Completed Studies During Hospitalization Category Date Time Status CT head wo con* 7 0450 Stat Cat Scan 05/05/21 11:50 Completed [employer] request for service Routin e Exams 05/07/21 16:30 Completed XR chest 1V otis ble [id number] Stat Exams 05/05/21 10:20 Completed XR chest 1V otis ble [id number] Stat Exams 05/05/21 14:33 Completed XR pelvis 1-2V* 7 2170 Stat Exams 05/05/21 13:49 Completed CV. echo complete * [id number] Routine Ultrasound 05/06/21 18:04 Completed Labs from last 24 hours 05/08/21 05/08/21 05/08/21 11:11 06:18 04:16 WBC RBC Hgb Hct MCV MCH MCHC RDW Plt Count MPV Neut % (Auto) Lymph % (Auto) [place] % (Auto) Eos % (Auto) Baso % (Auto) Neut # (Auto) Lymph # (Auto) [place] # (Auto) Eos # (Auto) Baso # (Auto) Nucleated RBC % (a uto) Nucleated RBCs # APTT Sodium 140 Potassium 4.3 Chloride 103 Carbon Dioxide 27 Anion Gap 14.3 BUN 28 H Creatinine 1.1 H GFR Calculation Not Reportable Glucose 107 POC Glucose 184 H 126 H Calculated Osmolal ity 296 H Calcium 8.7 05/08/21 05/07/21 05/07/21 04:16 21:53 20:28 WBC 4.9 RBC 3.86 L Hgb 10.4 L Hct 34.0 L MCV 88.1 MCH 26.9 L MCHC 30.6 RDW 15.4 H Plt Count 230 MPV 11.7 H Neut % (Auto) 60.2 Lymph % (Auto) 26.0 [place] % (Auto) 8.5 Eos % (Auto) 4.5 Baso % (Auto) 0.6 Neut # (Auto) 2.97 Lymph # (Auto) 1.3 [place] # (Auto) 0.4 Eos # (Auto) 0.2 Baso # (Auto) 0.0 Nucleated RBC % (a uto) 0 Nucleated RBCs # 0.0 APTT 38.1 H Sodium Potassium Chloride Carbon Dioxide Anion Gap BUN Creatinine GFR Calculation Glucose POC Glucose 137 H Calculated Osmolal ity Calcium Vitals: Last Vital Signs Temp 97.7 F 05/08/21 04:00 Pulse 73 05/08/21 10:11 Resp 16 05/08/21 08:00 BP 125/67 05/08/21 08:00 Pulse Ox 95 05/08/21 10:11 Discharge Plan Discharge Patient Disposition: Home Condition: Stable Prescriptions: New Ranexa 1,000 mg tablet extended release 12 hr 1,000 mg PO BID 30 Days Qty: 60 RF: 3 Plavix 75 mg tablet 75 mg PO DAILY Qty: 30 RF: 0 Continued simvastatin 10 mg tablet 10 mg PO DAILY@1700 RF: 0 cyanocobalamin (vitamin B-12) 1,000 mcg capsule 1,000 mcg PO DAILY@0900 RF: 0 isosorbide mononitrate 30 mg tablet extended release 24 hr 60 mg PO BID@0900,2100 RF: 0 losartan 100 mg tablet 100 mg PO DAILY@0900 RF: 0 levothyroxine 137 mcg capsule 137 mcg PO DAILY@0530 RF: 0 metformin 1,000 mg tablet 500 mg PO BID@0900,2100 RF: 0 insulin lispro [Admelog SoloStar U-100 Insulin] 100 unit/mL insulin pen 5 unit SUBCUT TID RF: 0 Toujeo Max U-300 SoloStar 300 unit/mL (3 mL) insulin pen 13 unit SUBCUT DAILY RF: 0 magnesium oxide 400 mg (241.3 mg magnesium) Tablet 400 mg PO DAILY@0900 RF: 0 nitroglycerin 0.4 mg Tablet, Sublingual 0.4 mg SUBLINGUAL Q5M PRN (Reason: CHEST PAINS) RF: 0 bisacodyl 5 mg Tablet,Delayed Release (Dr/Ec) 5 mg PO DAILY PRN (Reason: Constipation) RF: 0 vitamin E 400 unit Capsule 400 unit PO DAILY@0900 RF: 0 fenofibrate nanocrystallized [Tricor] 48 mg Tablet 48 mg PO DAILY@2100 RF: 0 Eliquis 5 mg tablet 5 mg PO BID@09,2099 RF: 0 carvedilol 12.5 mg tablet See Rx Instructions .ROUTE .COMPLEX RF: 0 furosemide 80 mg tablet 80 mg PO DAILY RF: 0 Vitamin C 250 mg Tablet 250 mg PO DAILY RF: 0 Farxiga 5 mg tablet 5 mg PO DAILY RF: 0 Trulicity 0.75 mg/0.5 mL pen injector 0.7 mg SUBCUT Q7D RF: 0 Discharge Orders: Discharge Order (Routine); Ordered 05/08/21 Ordered By: Delfino Martinez Referrals: Annie Váqzuez FNP [Nurse Practitioner] - 05/15/21 12:45 pm (you have an appointment with annie vázquez np in [facility] on may 15 at 1245 pm.if you have any questions,call them at [phone].) Cholo Fuentes MD [Physician] - 2 weeks ( dr fuentes's office has been contacted regarding your hospitalization and need for appointment in 2 weeks.their office will be contacting you.if you have not heard from them by wednesday..call them at [phone] ) Discharge Diet: Diabetic Discharge Activity: Resume usual activity Patient Instructions: Ranolazine (By mouth), Myocardial Infarction (DC), Opioid Safety, Post Angiogram Home Care Instructions, Post Heart Attack Stoplight Discharge Attestations Time Spent in Discharge Care*: less than 30 min Specific Discharge Activities: educating patient, educating and/or supporting family/caregiver, discussing with pcp/other providers, discussing with case technician/social workers/dc planners, documenting/other paperwork and evaluating patient/reviewing data Status at Discharge: Cognitive status at discharge: cognitively intact, Behavioral status at discharge: cooperative, Quality Metrics Clinical Quality Measures During this hospital stay, did patient experience: None Coding Level of Care Code Acute Chg FW DC note Exam Detailed Diagnoses Non-ST elevation myocardial infarction (NSTEMI) I21.4 Atypical chest pain R07.89 Atherosclerotic heart disease of [place] coronary artery with other forms of angina pectoris I25.118 Atrial fibrillation I48.20 Atrial fibrillation type: unspecified chronic Sleep apnea G47.33 Sleep apnea type: obstructive Type 2 diabetes mellitus E11.65 Diabetes mellitus complication status: with hyperglycemia Diabetes mellitus terminal press operator insulin use: without terminal press operator use Benign essential hypertension with target blood pressure below 140/90 I10 Chronic kidney disease N18.9
--- NOTE | 2021-05-08 16:18 | PC.NURSE ---
Discharge Note Patient discharged to home[] via [w/c] accompanied by [spouse]. Discharge instructions reviewed with patient and/or medical center representative. Mobile pharmacy medications and/or prescriptions provided. Belongings/home medications returned.
--- NOTE | 2021-05-08 17:04 | PC.NURSE ---
dr joy called [facility] after pt was discharged and requested that pt be put on plavix for 1 month.this was phoned to pt's pharmacy and the pt was notified.pt verb understanding of instructions
--- NOTE | 2021-05-09 11:52 | PC.SOCIAL ---
discharge follow up call made, spoke with pts . she reports pt is doing good, ate a good breakfast. patient picked up prescriptions from the pharmacy and is taking as prescribed. patient is aware of follow up appointment with Sara Osorio, and sign writer hand let the know that Dr. Meyer's office will be calling them with a follow up date and time. no questions or concerns voiced.
--- NOTE | 2021-05-15 16:06 | PC.SOCIAL ---
Could not get ahold of patient to update that the PA was completed on Ranexa and approved. Brought cost from $500 to a little over $100. Called and he indicates she has been on it before and someone stopped it so she has plenty of it from before and will use what she has. Explained that it may need reordered if greater than a few weeks since pharmacy may not keep on profile to fill very long. verbalized understanding.
== END 2021-05-08 16:17 | disposition home or self-care (01) | DRG 280 ==
LOC: ER 10:11 → CSU 15:53
PROVIDERS: Family Medicine; Internal Medicine Cardiovascular Disease; Admitting Provider Internal Medicine; Emergency Provider Family Medicine; PCP Internal Medicine; Visit Provider Internal Medicine
PROC: 4A023N7 Measurement of Cardiac Sampling and Pressure, Left Heart, Percutaneous Approach (ICD-10-PCS; principal; 2021-05-07 18:00)
DX: I21.4 Non-ST elevation (NSTEMI) myocardial infarction (principal); I50.31 Acute diastolic (congestive) heart failure; I13.0 Hypertensive heart and chronic kidney disease with heart failure and stage 1 through stage 4 chronic kidney disease, or unspecified chronic kidney disease; I48.20 Chronic atrial fibrillation, unspecified; I25.10 Atherosclerotic heart disease of native coronary artery without angina pectoris; G47.33 Obstructive sleep apnea (adult) (pediatric); I45.10 Unspecified right bundle-branch block; N18.30 Chronic kidney disease, stage 3 unspecified; E11.22 Type 2 diabetes mellitus with diabetic chronic kidney disease; E11.65 Type 2 diabetes mellitus with hyperglycemia; I25.118 Atherosclerotic heart disease of native coronary artery with other forms of angina pectoris; I34.0 Nonrheumatic mitral (valve) insufficiency; Z95.1 Presence of aortocoronary bypass graft; Z79.4 Long term (current) use of insulin; Z79.01 Long term (current) use of anticoagulants; Z79.890 Hormone replacement therapy; Z88.2 Allergy status to sulfonamides; Z88.8 Allergy status to other drugs, medicaments and biological substances; Z90.710 Acquired absence of both cervix and uterus; Z82.49 Family history of ischemic heart disease and other diseases of the circulatory system; Z83.3 Family history of diabetes mellitus; Z20.822 Contact with and (suspected) exposure to COVID-19; Z90.49 Acquired absence of other specified parts of digestive tract
CPT/HCPCS: 36415; 36416; 36600; 51702; 70450; 71045; 72170; 80048; 80051; 80053; 81003; 82330; 82550; 82805; 82962; 83735; 83880; 84484; 85025; 85730; 87426; 93005; 93306; 93459; 96361; 96372; 96374; 99291; C1769; C1887; C1894; G0378; J1644; J1650; J1815; J1940; J2250; J2405; J3010; J3490; J7030; Q9967

== ENCOUNTER → 2021-05-21 11:38 | Outpatient (BNVA) | payer MEDICARE, SELFPAY | PROVIDERS: PCP Internal Medicine; Visit Provider Nurse Practitioner Family | DX: I25.118 Atherosclerotic heart disease of native coronary artery with other forms of angina pectoris (principal) | CPT/HCPCS: 80048 ==

== ENCOUNTER 2023-03-03 16:12 | Outpatient (CLI) | payer MEDICARE, SELFPAY ==
--- NOTE | 2023-03-03 16:20 | XR_ITS ---
WS: [id number] XR knee RT 1-2V [id number] REASON FOR EXAM: PAIN FINDINGS: No fracture or focal bone lesion. Mild narrowing of the medial knee joint space with mild subchondral sclerosis and moderate osteophyto sis. Lateral knee joint space is intact with mild subchondral sclerosis and significant osteophytosis. Multiple loose bodies within the central knee joint with possible osteochondral defect in the lateral aspect of the medial femoral condyle with adjacent loose body. Significant narrowing of the patellofemoral joint space with significant osteophytosis of the patella and opposing femoral condyles. XR/XR knee RT 1-2V [id number] IMPRESSION: Osteoarthritis which is most severe in the patellofemoral joint space as above. The medial and lateral joint spaces are are not significantly narrowed, howeve r, there are multiple loose within the joint as above.
--- NOTE | 2023-03-03 16:22 | XR_ITS ---
WS: [id number] XR hip RT 2-3V wo/w pel* [id number] REASON FOR EXAM: PAIN IN HIP FINDINGS: No fracture or focal bone lesion. There is moderate narrowing of the joint space with mild to moderate subchondral sclerosis/cystic fady nge and moderate osteophytosis of the acetabulum. No soft tissue abnormality. XR/XR hip RT 2-3V wo/w pel* [id number] IMPRESSION: Moderate osteoarthritis of the right hip.
== END 2023-03-03 16:13 | disposition home or self-care (01) ==
LOC: RAD 16:15
PROVIDERS: PCP Internal Medicine; Visit Provider General Practice
DX: M25.551 Pain in right hip (principal); M17.11 Unilateral primary osteoarthritis, right knee
CPT/HCPCS: 73502; 73560

== ENCOUNTER 2024-11-20 19:09 | Emergency (ER) | payer MEDICARE, SELFPAY ==
[2024-11-20] VITALS (12 sets, daily range): BP systolic 130–191; BP diastolic 67–127; PULSE 67–113; RESP 16–23; TEMP 36.4; O2SAT 90–97; BMI 32.0
--- NOTE | 2024-11-20 19:27 | PC.NURSE ---
pt reports some left sided facial tingling. face is symmetrical. no slurred speech noted. dr. gilbert notified
--- NOTE | 2024-11-20 19:34 | ECG_ITS ---
[facility]24[facility]20 Pat Name: Jane Castillo Department: Room: Gender: Female Junk Removal Specialist: : [id number] Requested By: Faustina Patricio Order Number: [id number] Reading MD: Measurements Intervals Romayor Rate: 106 P: 0 MA: 0 QRS: 103 QRSD: 139 T: -19 QT: 377 QTc: 503 Interpretive Statements ATRIAL FLUTTER/TACHYCARDIA WITH RAPID VENTRICULAR RESPONSE RIGHT AXIS DEVIATION [QRS AXIS > 100] RIGHT BUNDLE BRANCH BLOCK [120+ ms QRS DURATION, UPRIGHT V1, 40+ ms S IN I/aVL/V4/V5/V6] MODERATE T-WAVE ABNORMALITY, CONSIDER INFERIOR ISCHEMIA [-0.1+ mV T-WAVE IN II/aVF] No previous ECG available for comparison [email or web address]
--- NOTE | 2024-11-20 19:34 | PC.NURSE ---
pt placed in room. dr. borrego notified of pt reporting left sided facial tingling
--- NOTE | 2024-11-20 19:37 | XRR_ITS ---
PROCEDURE INFORMATION: Exam: XR Abdomen Exam date and time: 11/20/2024 7:55 PM Age: 79 years old Clinical indication: Abdominal pain; Acute; Additional info: Abd pain TECHNIQUE: Imaging protocol: Radiologic exam of the abdomen. Views: Frontal supine view of the abdomen. 1 View. COMPARISON: CT abdomen pelvis w con* [id number] 06/18/2018 10:50 PM FINDINGS: Gastrointestinal tract: Several dilated small bowel loops measuring up to 3.9 cm, findings may reflect an evolving obstruction or an ileus, consider further evaluation with a CT scan. Bones/joints: Unremarkable. XR/XR abdomen 1V* [id number] IMPRESSION: Several dilated small bowel loops measuring up to 3.9 cm, findings may reflect an evolving obstruction or an ileus, consider further evaluation with a CT scan.
--- NOTE | 2024-11-20 19:44 | W.ED.ABDPA2 ---
HPI - Abdominal Pain General: Chief Complaint: Abdominal Pain Stated Complaint: ABD Pain\Lower Back\V Time Seen by Provider: 11/20/24 19:33 History of Present Illness: 79-year-old female with a history of hypertension, diabetes, obesity, atrial fibrillation with chronic anticoagulation on Eliquis, multiple abdominal surgeries in the past, coronary artery disease status post CABG and still with some more blockages that she does not want operated on who presents to the emergency room with severe lower abdominal pain. Family states this started on Wednesday after she ate a chaim. She is complaining of very severe lower abdominal pain but has diffuse pain. She has had nausea and vomiting. She thought it might pass so they waited until today to come in. She slightly tachycardic in atrial fibrillation on presentation. No chest pain. Related Data Home Medications ?Medication ?Instructions ?Recorded ?Confirmed cyanocobalamin (vitamin B-12) 1,000 mcg PO DAILY@0900 10/24/19 05/21/21 1,000 mcg capsule insulin glargine U-300 conc 300 13 unit SUBCUT DAILY 10/24/19 05/21/21 unit/mL (3 mL) subcutaneous pen (Toujeo Max U-300 SoloStar) insulin lispro 100 unit/mL 5 unit SUBCUT TID 10/24/19 05/21/21 subcutaneous pen (Admelog SoloStar U-100 Insulin lispro) isosorbide mononitrate 30 mg 60 mg PO BID@0900,2100 10/24/19 05/21/21 tablet,extended release 24 hr levothyroxine 137 mcg capsule 137 mcg PO DAILY@0530 10/24/19 05/21/21 losartan 100 mg tablet 100 mg PO DAILY@0900 10/24/19 05/21/21 metformin 1,000 mg tablet 500 mg PO BID@0900,209910/24/19 05/21/21 simvastatin 10 mg tablet 10 mg PO DAILY@1700 10/24/19 05/21/21 apixaban 5 mg tablet (Eliquis) 5 mg PO BID@0900,209910/20/20 05/21/21 bisacodyl 5 mg tablet,delayed 5 mg PO DAILY PRN Constipation 10/20/20 05/21/21 release fenofibrate nanocrystallized 48 mg 48 mg PO DAILY@209910/20/20 05/21/21 tablet (Tricor) magnesium oxide 400 mg (241.3 mg 400 mg PO DAILY@0900 10/20/20 05/21/21 magnesium) tablet nitroglycerin 0.4 mg sublingual 0.4 mg sublingual Q5M PRN CHEST 10/20/20 05/21/21 tablet PAINS vitamin E 268 mg (400 unit) capsule 400 unit PO DAILY@0900 10/20/20 05/21/21 ascorbic acid (vitamin C) 250 mg 250 mg PO DAILY 05/05/21 05/21/21 tablet (Vitamin C) carvedilol 12.5 mg tablet See Rx Instructions .Route .COMPLEX 05/05/21 05/21/21 dapagliflozin propanediol 5 mg 5 mg PO DAILY 05/05/21 05/21/21 tablet (Farxiga) dulaglutide 0.75 mg/0.5 mL 0.7 mg SUBCUT Q7D 05/05/21 05/21/21 subcutaneous pen injector (Trulicity) furosemide 80 mg tablet 80 mg PO DAILY 05/05/21 05/21/21 melatonin 10 mg capsule 10 mg PO DAILY 05/21/21 05/21/21 Previous Rx's ?Medication ?Instructions ?Recorded clopidogrel 75 mg tablet (Plavix) 75 mg PO DAILY #30 tabs 05/08/21 ranolazine 1,000 mg 1,000 mg PO BID 30 days #60 tabs 05/08/21 tablet,extended release,12 hr (Ranexa) Allergies Allergy/AdvReac Type Severity Reaction Status Date / Time hydromorphone (From Dilaudid) Allergy Severe ADR-Halluci Verified 11/20/24 19:17 nating sulfamethoxazole (From Allergy Hughes Verified 11/20/24 19:17 Bactrim) Jose syndrome trimethoprim (From Bactrim) Allergy Hughes Verified 11/20/24 19:17 Jose syndrome Review of Systems Narrative: Constitutional symptoms: Negative except as documented in HPI. Skin symptoms: Negative except as documented in HPI. Eye symptoms: Negative except as documented in HPI. ENMT symptoms: Negative except as documented in HPI. Respiratory symptoms: Negative except as documented in HPI. Cardiovascular symptoms: Negative except as documented in HPI. Gastrointestinal symptoms: Negative except as documented in HPI. Genitourinary symptoms: Negative except as documented in HPI. Musculoskeletal symptoms: Negative except as documented in HPI. Neurologic symptoms: Negative except as documented in HPI. Psychiatric symptoms: Negative except as documented in HPI. Endocrine symptoms: Negative except as documented in HPI. PFSH ED PFSH: Medical History (Updated 11/21/24 @ 01:04 by Faustina Moyer MD) Chronic kidney disease Medication side effect Atypical chest pain CHF (congestive heart failure) CKD (chronic kidney disease) stage 3, GFR 30-59 ml/min Benign essential hypertension with target blood pressure below 140/90 Atherosclerotic heart disease of [place] coronary artery with other forms of angina pectoris Non-ST elevation myocardial infarction (NSTEMI) Atypical chest pain Hypertensive urgency Chest pain Choking Modified barium swallow normal Sleep apnea Type 2 diabetes mellitus TRISTEN (acute kidney injury) Hypertensive urgency Angina at rest Fatty liver Incisional hernia Atrial fibrillation On Eliquis and dofetilide CHF (congestive heart failure), NYHA class I CAD (coronary artery disease) Diabetes Surgical History History of appendectomy S/P colonoscopy S/P CABG x [address] Vaz in [place] 2005 CABG S/P cholecystectomy History of incisional hernia repair (~2015) S/P LASIK surgery of both eyes Hx of CABG H/O: hysterectomy Endometrial cancer Family History Other CAD (coronary artery disease) Diabetes Social History Smoking and tobacco/nicotine status: never used tobacco/nicotine Alcohol intake: never Physical Exam Narrative: EXAM NARRATIVE: General: Alert, patient is in some distress from pain Skin: Warm, dry. Head: Normocephalic, atraumatic. Neck: Supple, trachea midline. Eye: Extraocular movements are intact. Ears, nose, mouth and throat: mucosa moist. Cardiovascular: Irregular, tachycardic, Normal peripheral perfusion. Respiratory: Lungs are clear to auscultation, respirations are non-labored, breath sounds are equal, Symmetrical chest wall expansion. Gastrointestinal: Soft, severe lower abdominal tenderness with diffuse tenderness to the entire abdomen. Non distended Musculoskeletal: Normal ROM, no deformity. Neurological: Alert and oriented, No focal neurological deficit observed. Psychiatric: Cooperative, appropriate mood & affect. Course Vital Signs: Vital signs: Vital Signs Temperature 97.5 F L 11/20/24 19:14 Pulse Rate 103 H 11/21/24 01:30 Respiratory Rate 18 11/21/24 01:30 Blood Pressure 158/108 11/21/24 01:30 Pulse Oximetry 97 11/21/24 01:30 Oxygen Delivery Me thod Room Air 11/20/24 21:00 MDM - Abdominal Pain Medical Decision Making Medical decision making: Differential diagnosis for this patient with nausea and vomiting including but not limited to and based on the above HPI, review of systems and physical exam: Urinary tract infection. Appendicitis. Cholecystitis. Colitis. small bowel obstruction. crohn's flare. pancreatitis. gastritis. peptic ulcer. cyclic vomiting. Viral illness. Influenza. COVID. Orders placed to evaluate differential diagnosis based on the above differential, HPI and physical exam EKG: Time 1921. Rate 106. Atrial fibrillation with rapid ventricular response, right bundle branch block. No ST-T changes, no ectopy, This was reviewed and interpreted by myself the ER physician at 1926 Repeat EKG: atrial fibrillation with rapid ventricular response, No ST-T changes, no ectopy, This was reviewed and interpreted by myself the ER physician at 2137 secondary to new worsening chest pain. This was somewhat different than previous so I sent it to cardiology who reviewed it and feels like this is not a STEMI and just to workup has been normal to following troponins etc. Consultation: I spoke with Dr. Conde about changes in EKG as above. Lab Review: Laboratory results were reviewed and interpreted by myself the emergency room physician. No leukocytosis. No anemia. Mild renal insufficiency. Near her baseline with a BUN and creatinine of 29 and 1.3. Lactate is not elevated at 2. Urinalysis does show evidence of urinary tract infection with 21-50 whites, however there is no bacteria. CT of the abdomen pelvis with contrast: Multiple dilated small bowel loops measuring up to 4 cm with fluid levels consistent with an obstruction. Potentially high-grade which may be secondary to a large lower ventral light abdominal wall hernia that contained some bowel. This does seem to be reducible but does not improve her pain. This was reviewed and interpreted by myself the emergency room physician. I also reviewed the radiology report. Consultation: I spoke with Dr. Muonz who feels that given the large hernia that she may need that repaired and he recommends transfer. Consultation: I spoke with surgeon on-call with [facility]. Dr. Garza. He reviewed films and also reviewed old films. He feels that the hernia has not changed and likely this is not the cause of the obstruction and even if it were the hernia would not be repaired. He also feels likely conservative management initially is more appropriate. I discussed with this with family and they want to stay here. I reviewed the patient's medical record. history of hypertension, diabetes, obesity, atrial fibrillation with chronic anticoagulation on Eliquis, multiple abdominal surgeries in the past, coronary artery disease status post CABG and still with some more blockages that she does not want operated on Reexamination: Patient has remained slightly tachycardic. Pain has been controlled at times but continues to come back. No increased work of breathing at this time. Chest pain seems to have improved with morphine. Consultation: I spoke again with Dr. Munoz. He is adamant that he would not be able to perform the surgery required on this patient because he would not be able to close the abdominal wall and again he is afraid that this bowel may be incarcerated as there are some fluid around it. Consultation: Dr. Germain was consulted again and he is accepted the patient to his service.. Assessment and plan: Small bowel obstruction Ventral hernia A-fib with RVR Dehydration Urinary tract infection Acute on chronic renal insufficiency ?Normal saline bolus. Cefepime for UTI. NG tube placement. Multiple doses of IV morphine for pain. IV Ativan for placement of NG tube. -I discussed the patient with the hospitalist on-call who is admitting the patient. - Discussed findings and plan with patient. Answered any questions. - All laboratory values were reviewed and interpreted personally by myself, the ER physician - All imaging was reviewed and interpreted personally by myself, the ER physician. - Evaluation and treatment of this problem were appropriate in the emergency setting Lab Data 11/20/24 19:41 11/20/24 19:41 Labs/Radiology: Radiology Impressions Abdomen X-Ray 11/20/24 19:37 IMPRESSION: Several dilated small bowel loops measuring up to 3.9 cm, findings may reflect an evolving obstruction or an ileus, consider further evaluation with a CT scan. Abdomen/Pelvis CT 11/20/24 20:41 IMPRESSION: 1. Multiple dilated small bowel loops measuring up to 4 cm with fluid levels consistent with an obstruction, potentially high-grade, which may be secondary to a large lower ventral midline abdominal wall hernia containing bowel, please correlate for reduction. 2. Small amount nonspecific fluid in the hernia sac. 3. Diverticulosis without diverticulitis. 4. Right kidney cyst, negative for follow up advised. 5. Right kidney chronic atrophy. 6. Bibasilar atelectasis. 7. Suspected CABG changes, please correlate with history. 8. Extensive mesenteric and bilateral renal artery atherosclerotic calcifications. 9. Cholecystectomy. 10. Biliary dilation likely related to prior cholecystectomy. THIS REPORT CONTAINS FINDINGS THAT MAY BE CRITICAL TO PATIENT CARE. The findings were verbally communicated via telephone conference with FAUSTINA MOYER at 10:35 PM CDT on 11/20/2024. The findings were acknowledged and understood. Chest X-Ray 11/21/24 00:25 IMPRESSION: 1. Enteric tube tip below the diaphragm with the gastric bubble. 2. Left mid lung field probable calcified granuloma, consider correlation with chest CT for confirmation. 3. Emphysematous changes. 4. Sternotomy wires. 5. Borderline cardiomegaly. 6. Small left pleural effusion suspected. 7. Bibasilar atelectasis. 8. Aortic atherosclerotic calcifications. Laboratory Results WBC 8.36 10^3/uL (3.29-11.43) 11/20/24 19:41 RBC 4.92 10^6/uL (3.85-5.65) 11/20/24 19:41 Hgb 13.80 g/dL (11.27-16.99) 11/20/24 19:41 Hct 42.8 % (36-47) 11/20/24 19:41 MCV 87.0 fl (85-98) 11/20/24 19:41 MCH 28.0 pg (27-33) 11/20/24 19:41 MCHC 32.2 g/dL (30-55) 11/20/24 19:41 RDW 14.2 % (12.1-15.1) 11/20/24 19:41 Plt Count 405 10^3/cmm (157-399) H 11/20/24 19:41 MPV 10.4 fL (7.4-10.4) 11/20/24 19:41 Neut % (Auto) 71.2 % 11/20/24 19:41 Lymph % (Auto) 19.4 % 11/20/24 19:41 [place] % (Auto) 7.1 % 11/20/24 19:41 Eos % (Auto) 1.6 % 11/20/24 19:41 Baso % (Auto) 0.5 % 11/20/24 19:41 Neut # (Auto) 5.96 10^3/uL (1.8-7.7) 11/20/24 19:41 Lymph # (Auto) 1.6 10^3/uL (0.8-4.8) 11/20/24 19:41 [place] # (Auto) 0.6 10^3/uL (0.2-0.9) 11/20/24 19:41 Eos # (Auto) 0.1 10^3/uL (0.0-0.8) 11/20/24 19:41 Baso # (Auto) 0.0 10^3/uL (0.0-0.1) 11/20/24 19:41 Nucleated RBC % (auto) 0 % 11/20/24 19:41 Nucleated RBCs # 0.0 /100WBC 11/20/24 19:41 Sodium 134 mmol/L (136-145) L 11/20/24 19:41 Potassium 5.0 mmol/L (3.5-5.1) 11/20/24 19:41 Chloride 91 mmol/L (98-107) L 11/20/24 19:41 Carbon Dioxide 27 mmol/L (22-29) 11/20/24 19:41 Anion Gap 21.0 (5-19) H 11/20/24 19:41 BUN 29 mg/dL (8-23) H 11/20/24 19:41 Creatinine 1.3 mg/dL (0.5-0.9) H 11/20/24 19:41 GFR Calculation Not Reportable 11/20/24 19:41 Glucose 163 mg/dL (65-115) H 11/20/24 19:41 Calculated Osmolality 287 mOsm/kg (285-295) 11/20/24 19:41 Lactic Acid 2.0 mmol/L (0.5-2.2) 11/20/24 19:42 Calcium 9.8 mg/dL (8.5-10.5) 11/20/24 19:41 Total Bilirubin 0.6 mg/dL (0.15-1.2) 11/20/24 19:41 AST 18 U/L (0-32) 11/20/24 19:41 ALT 15 U/L (0-33) 11/20/24 19:41 Alkaline Phosphatase 77 U/L (35-105) 11/20/24 19:41 Troponin T Baseline 35 ng/L (0-10) H 11/20/24 19:42 Troponin T 120 Minute 34.16 ng/L (0-10) H 11/20/24 21:10 Delta Troponin T -0.84 ABS# (0-10) L 11/20/24 21:10 C-Reactive Protein 66.7 mg/L (0.0-4.9) H 11/20/24 19:41 NT-Pro-B Natriuret Pep 1921 pg/mL (0-450) H 11/20/24 19:41 Total Protein 7.5 g/dL (6.6-8.7) 11/20/24 19:41 Albumin 4.1 g/dL (3.5-5.2) 11/20/24 19:41 Globulin 3.4 g/dL (1.3-4.6) 11/20/24 19:41 Lipase 24 U/L (13-60) 11/20/24 19:41 Urine Color Yellow (Yellow) 11/20/24 20:25 Urine Appearance Clear (CLEAR) 11/20/24 20:25 Urine pH 5 (5-7) 11/20/24 20:25 Ur Specific [place] 1.015 (1.005-1.030) 11/20/24 20: Urine Protein 1+ (Negative) A 11/20/24 20:25 Urine Glucose (UA) Norm (Normal) 11/20/24 20: Urine Ketones 1+ (Negative) H 11/20/24 20: Urine Blood Trace (Negative) A 11/20/24 20: Urine Nitrate Negative (Negative) 11/20/24 20:25 Urine Bilirubin Neg (Negative) 11/20/24 20: Urine Urobilinogen Neg mg/dL (Negative) 11/20/24 20:25 Ur Leukocyte Esterase Trace (Negative) A 11/20/24 20: Urine RBC 0-2 /hpf (0-2) 11/20/24 20:25 Urine WBC 21-50 /hpf (0-5) H 11/20/24 20:25 Ur Squamous Epith Cells 0-5 /hpf (0-5) 11/20/24 20:25 Amorphous Sediment Not Reportable 11/20/24 20:25 Urine Bacteria None seen /hpf (NONE) 11/20/24 20:25 Hyaline Casts 11.97 /lpf 11/20/24 20:25 Influenza A (PCR) Negative (Negative) 11/20/24 20:02 Influenza Type B (PCR) Negative (Negative) 11/20/24 20:02 RSV (PCR) Negative (Negative) 11/20/24 20:02 SARS-CoV-2 (PCR) Negative (Negative) 11/20/24 20:02 All radiology interpretation(s) finalized by discharge Discharge Plan Discharge Patient Disposition: Xfer Short-Term Hosp Clinical Impression: Small bowel obstruction, Abdominal pain, Atrial fibrillation with rapid ventricular response, Urinary tract infection, Ventral hernia with bowel obstruction, Acute on chronic renal insufficiency, Dehydration Condition: Stable Referrals: Stan Feliciano NP [Primary Care Provider] - Patient Instructions: Abdominal Pain (ED) Print Language: Yi Coding Level of Care Code ED Liner Checker for Russell Monique
[2024-11-20] MEDS: morphine 4 mg/mL SDV 1 mL 2 MG IVP (19:48)
[2024-11-20] MEDS: ondansetron 2 mg/ML SDV 2 mL 4 MG IVP (19:49)
[2024-11-20 19:59] LABS: Basophils % 0.5 %; Eosinophils # 0.1 10^3/uL (0.0-0.8); Eosinophils % 1.6 %; Hematocrit 42.8 % (36-47); Lymphocytes # 1.6 10^3/uL (0.8-4.8); Lymphocytes % 19.4 %; Mean Corpuscular HGB Conc 32.2 g/dL (30-55); Mean Platelet Volume 10.4 fL (7.4-10.4); Monocytes # 0.6 10^3/uL (0.2-0.9); Monocytes % 7.1 %; Neutrophils # 5.96 10^3/uL (1.8-7.7); Neutrophils % 71.2 %; Nucleated Red Blood Cells % 0 %; Platelet Count 405 10^3/cmm (157-399); Red Blood Count 4.92 10^6/uL (3.85-5.65); Red Cell Distribution Width 14.2 % (12.1-15.1); White Blood Count 8.36 10^3/uL (3.29-11.43)
[2024-11-20 20:20] LABS: Troponin(5th) Baseline 35 ng/L (0-10)
[2024-11-20 20:29] LABS: Alanine Aminotransferase 15 U/L (0-33); Albumin Level 4.1 g/dL (3.5-5.2); Alkaline Phosphatase 77 U/L (35-105); Aspartate Amino Transferase 18 U/L (0-32); Blood Urea Nitrogen 29 mg/dL (8-23); C Reactive Protein 66.7 mg/L (0.0-4.9); Calcium 9.8 mg/dL (8.5-10.5); Carbon Dioxide 27 mmol/L (22-29); Chloride 91 mmol/L (98-107); Creatinine Clr Calc Pharmacy 33.6794; Globulin 3.4 g/dL (1.3-4.6); Glucose 163 mg/dL (65-115); Lipase 24 U/L (13-60); NT Pro B Type Natriuretic Pept 1921 pg/mL (0-450); Osmolality Calculated 287 mOsm/kg (285-295); Sodium 134 mmol/L (136-145); Total Bilirubin 0.6 mg/dL (0.15-1.2); Total Protein 7.5 g/dL (6.6-8.7)
[2024-11-20] MEDS: sodium chloride 0.9% 1,000 ML 999 ML IV (20:31)
[2024-11-20 20:41] LABS: Bacteria Urine None Seen /hpf; Hyaline Casts Urine 11.97 /lpf; RBC Urine 0-2 /hpf (0-2); Squamous Epithelial Cell Urine 0-5 /hpf (0-5); WBC Urine 21-50 /hpf (0-5)
[2024-11-20 20:41] LABS: Influenza A NEGATIVE (Negative); Influenza B NEGATIVE (Negative); Respiratory Syncytial Virus Ce NEGATIVE (Negative); SARS-CoV-2 PCR NEGATIVE (Negative)
--- NOTE | 2024-11-20 20:41 | CTR_ITS ---
PROCEDURE INFORMATION: Exam: CT Abdomen And Pelvis With Contrast Exam date and time: 11/20/2024 10:16 PM Age: 79 years old Clinical indication: Abdominal pain; Generalized; Prior surgery; Surgery date: 6+ months; Surgery type: Gb, hysterectomy, hernia TECHNIQUE: Imaging protocol: Computed tomography of the abdomen and pelvis with contrast. Radiation optimization: All CT scans at this facility use at least one of these dose optimization techniques: automated exposure control; mA and/or kV adjustment per patient size (includes targeted exams where dose is matched to clinical indication); or iterative reconstruction. Contrast material: OMNIPAQUE 350; Contrast volume: 100 ml; Contrast route: INTRAVENOUS (IV); COMPARISON: CR (ABDOMEN, ) 11/20/2024 7:55 PM RADIATION DOSE METRICS: Total DLP (mGy-cm): 842.35 FINDINGS: Lungs: Bibasilar atelectasis. Coronary arteries: Suspected CABG changes, please correlate with history. Liver: Normal. No mass. Gallbladder and biliary ducts: Cholecystectomy. Biliary dilation likely related to prior cholecystectomy. Pancreas: Normal. No ductal dilation. Spleen: Normal. No splenomegaly. Adrenal glands: Normal. No mass. Kidneys and ureters: Right kidney cyst, negative for follow up advised. Right kidney chronic atrophy. Stomach and bowel: Diverticulosis without diverticulitis. Appendix: No evidence of appendicitis. Intraperitoneal space: Unremarkable. No free air. No significant fluid collection. Vasculature: Extensive mesenteric and bilateral renal artery atherosclerotic calcifications. Lymph nodes: Unremarkable. No enlarged lymph nodes. Urinary bladder: Unremarkable as visualized. Reproductive: Unremarkable as visualized. Bones/joints: Unremarkable. No acute fracture. Soft tissues: Multiple dilated small bowel loops measuring up to 4 cm with fluid levels consistent with an obstruction, potentially high-grade, which may be secondary to a large lower ventral midline abdominal wall hernia containing bowel, please correlate for reduction. Small amount nonspecific fluid in the hernia sac. CT/CT abdomen pelvis w con* [id number] IMPRESSION: 1. Multiple dilated small bowel loops measuring up to 4 cm with fluid levels consistent with an obstruction, potentially high-grade, which may be secondary to a large lower ventral midline abdominal wall hernia containing bowel, please correlate for reduction. 2. Small amount nonspecific fluid in the hernia sac. 3. Diverticulosis without diverticulitis. 4. Right kidney cyst, negative for follow up advised. 5. Right kidney chronic atrophy. 6. Bibasilar atelectasis. 7. Suspected CABG changes, please correlate with history. 8. Extensive mesenteric and bilateral renal artery atherosclerotic calcifications. 9. Cholecystectomy. 10. Biliary dilation likely related to prior cholecystectomy. THIS REPORT CONTAINS FINDINGS THAT MAY BE CRITICAL TO PATIENT CARE. The findings were verbally communicated via telephone conference with PARTH MCBRIDE at 10:35 PM CDT on 11/20/2024. The findings were acknowledged and understood.
[2024-11-20 21:11] LABS: Add Urine Culture? Yes; Add Urine Microscopic? YES; Bilirubin Urine Neg (Negative); Blood Urine Trace (Negative); Glucose Urine UA Norm (Normal); Ketones Urine 1+ (Negative); Leukocyte Esterase Urine Trace (Negative); Nitrate Urine Negative (Negative); Protein Urine 1+ (Negative); Specific Gravity, Urine 1.015 (1.005-1.030); UA Slide Review UA Slide Review Perf; Urine Appearance Clear (CLEAR); Urine Color Yellow (Yellow); Urobilinogen Urine Neg (Negative); pH Urine 5 (5-7)
--- NOTE | 2024-11-20 21:34 | ECG_ITS ---
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: : 1945 Requested By: Faustina Patricio Order Number: [id number] Reading MD: Measurements Intervals [place] Rate: 107 P: 0 TN: 0 QRS: 93 QRSD: 138 T: -32 QT: 373 QTc: 499 Interpretive Statements ATRIAL FIBRILLATION WITH RAPID VENTRICULAR RESPONSE RIGHT BUNDLE BRANCH BLOCK [120+ ms QRS DURATION, UPRIGHT V1, 40+ ms S IN I/aVL/V4/V5/V6] MODERATE T-WAVE ABNORMALITY, CONSIDER LATERAL ISCHEMIA [-0.1+ mV T-WAVE IN I/aVL/V5/V6] MODERATE T-WAVE ABNORMALITY, CONSIDER INFERIOR ISCHEMIA [-0.1+ mV T-WAVE IN II/aVF] [email or web address]
[2024-11-20 21:37] LABS: Troponin 5 2HR 34.16 ng/L (0-10)
[2024-11-20 21:40] LABS: Troponin 5 2HR Delta -0.84 ABS# (0-10)
[2024-11-20] MEDS: cefepime 2,000 mg SDV 2000 MG IVP (21:41)
[2024-11-20] MEDS: morphine 4 mg/mL SDV 1 mL IVP (21:54)
[2024-11-20] MEDS: iohexol 350 mg/mL 500 mL Btl (per mL) IV (22:27)
[2024-11-20] MEDS: LORazepam 2 mg/mL INJ 1 mL 1 MG IVP (23:44)
[2024-11-21] VITALS (9 sets, daily range): BP systolic 119–167; BP diastolic 68–117; PULSE 96–114; RESP 15–20; O2SAT 97–98
--- NOTE | 2024-11-21 00:25 | XRR_ITS ---
PROCEDURE INFORMATION: Exam: XR Chest Exam date and time: 11/21/2024 12:24 AM Age: 79 years old Clinical indication: Device placement; Ng tube; Additional info: Ng tube placement TECHNIQUE: Imaging protocol: Radiologic exam of the chest. Views: 1 view. COMPARISON: CR XR chest 1V portable [id number] 05/05/2021 2:38 PM FINDINGS: Tubes, catheters and devices: Enteric tube tip below the diaphragm with the gastric bubble. Lungs: Left mid lung field probable calcified granuloma, consider correlation with chest CT for confirmation. Emphysematous changes. Bibasilar atelectasis. Pleural spaces: Small left pleural effusion suspected. Heart/Mediastinum: Borderline cardiomegaly. Vasculature: Aortic atherosclerotic calcifications. Bones/joints: Sternotomy wires. XR/XR chest 1V portable [id number] IMPRESSION: 1. Enteric tube tip below the diaphragm with the gastric bubble. 2. Left mid lung field probable calcified granuloma, consider correlation with chest CT for confirmation. 3. Emphysematous changes. 4. Sternotomy wires. 5. Borderline cardiomegaly. 6. Small left pleural effusion suspected. 7. Bibasilar atelectasis. 8. Aortic atherosclerotic calcifications.
[2024-11-21] MEDS: cetacaine Spray 20 gm Can 1 SPRAY TOPICAL (00:49)
[2024-11-21] MEDS: cetacaine Spray 5 gm Can 5 SPRAY (00:49)
--- NOTE | 2024-11-21 01:23 | PM.CONSULT ---
Providers/Reason For Consult Consulting Physician/Specialty*: General Surgery Reason for Consult*: Small bowel obstruction Primary Care Provider: Stan Feliciano NP History of Present Illness History of Present Illness Jane Castillo is a 79 year old female with multiple medical comorbidities and extensive surgical history who presents with a small bowel obstruction. She has been having severe abdominal pain and distention since Wednesday having multiple bouts of nausea and vomit. No recent bowel movements. Patient has history of multiple intra-abdominal surgeries and has a very large ventral abdominal wall hernia in the lower abdomen probably from a previous unstable incision. CT scan was done and show evidence of a high-grade small bowel obstruction with a possible transition of the level of the hernia. Review of Systems General: Reports: 10 or more systems reviewed and unremarkable except in HPI and below Medications/Allergies Home Medications ?Medication ?Instructions ?Recorded ?Confirmed ?Last Taken ?Type cyanocobalamin (vitamin B-12) 1,000 mcg PO DAILY@0900 10/24/19 05/21/21 05/04/21 History 1,000 mcg capsule insulin glargine U-300 conc 300 13 unit SUBCUT DAILY 10/24/19 05/21/21 05/04/21 History unit/mL (3 mL) subcutaneous pen (Toujeo Max U-300 SoloStar) insulin lispro 100 unit/mL 5 unit SUBCUT TID 10/24/19 05/21/21 05/04/21 History subcutaneous pen (Admelog SoloStar U-100 Insulin lispro) isosorbide mononitrate 30 mg 60 mg PO BID@0900,2100 10/24/19 05/21/21 05/04/21 History tablet,extended release 24 hr levothyroxine 137 mcg capsule 137 mcg PO DAILY@0530 10/24/19 05/21/21 05/04/21 History losartan 100 mg tablet 100 mg PO DAILY@0900 10/24/19 05/21/21 05/04/21 History metformin 1,000 mg tablet 500 mg PO BID@0900,2100 10/24/19 05/21/21 05/04/21 History simvastatin 10 mg tablet 10 mg PO DAILY@1700 10/24/19 05/21/21 05/04/21 History apixaban 5 mg tablet (Eliquis) 5 mg PO BID@0900,2100 02/05/21/21 05/04/21 History bisacodyl 5 mg tablet,delayed 5 mg PO DAILY PRN Constipation 10/20/20 05/21/21 Unknown History release fenofibrate nanocrystallized 48 mg 48 mg PO DAILY@2100 10/20/20 05/21/21 05/04/21 History tablet (Tricor) magnesium oxide 400 mg (241.3 mg 400 mg PO DAILY@0910/20/20 05/21/21 05/04/21 History magnesium) tablet nitroglycerin 0.4 mg sublingual 0.4 mg sublingual Q5M PRN CHEST 10/20/20 05/21/21 Unknown History tablet PAINS vitamin E 268 mg (400 unit) capsule 400 unit PO DAILY@0910/20/20 05/21/21 05/04/21 History ascorbic acid (vitamin C) 250 mg 250 mg PO DAILY 05/05/21 05/21/21 05/04/21 History tablet (Vitamin C) carvedilol 12.5 mg tablet See Rx Instructions .Route .COMPLEX 05/05/21 05/21/21 05/04/21 History dapagliflozin propanediol 5 mg 5 mg PO DAILY 05/05/21 05/21/21 05/04/21 History tablet (Farxiga) dulaglutide 0.75 mg/0.5 mL 0.7 mg SUBCUT Q7D 05/05/21 05/21/21 05/04/21 History subcutaneous pen injector (Trulicity) furosemide 80 mg tablet 80 mg PO DAILY 05/05/21 05/21/21 05/04/21 History clopidogrel 75 mg tablet (Plavix) 75 mg PO DAILY #30 tabs 05/08/21 05/21/21 Unknown Rx ranolazine 1,000 mg 1,000 mg PO BID 30 days #60 tabs 05/08/21 05/21/21 Unknown Rx tablet,extended release,12 hr (Ranexa) melatonin 10 mg capsule 10 mg PO DAILY 05/21/21 05/21/21 Unknown History Allergies Allergy/AdvReac Type Severity Reaction Status Date / Time hydromorphone (From Dilaudid) Allergy Severe ADR-Halluci Verified 11/20/24 19:17 nating sulfamethoxazole (From Allergy Hughes Verified 11/20/24 19:17 Bactrim) Jose syndrome trimethoprim (From Bactrim) Allergy Saul Verified 11/20/24 19:17 Jose syndrome PFSH Acute PFSH: Medical History (Updated 11/21/24 @ 01:04 by Faustina Moyer MD) Chronic kidney disease Medication side effect Atypical chest pain CHF (congestive heart failure) CKD (chronic kidney disease) stage 3, GFR 30-59 ml/min Benign essential hypertension with target blood pressure below 140/90 Atherosclerotic heart disease of [place] coronary artery with other forms of angina pectoris Non-ST elevation myocardial infarction (NSTEMI) Atypical chest pain Hypertensive urgency Chest pain Choking Modified barium swallow normal Sleep apnea Type 2 diabetes mellitus TRISTEN (acute kidney injury) Hypertensive urgency Angina at rest Fatty liver Incisional hernia Atrial fibrillation On Eliquis and dofetilide CHF (congestive heart failure), NYHA class I CAD (coronary artery disease) Diabetes Surgical History History of appendectomy S/P colonoscopy S/P CABG x [address] Vaz in 2005 CABG S/P cholecystectomy History of incisional hernia repair (~2015) S/P LASIK surgery of both eyes Hx of CABG H/O: hysterectomy Endometrial cancer Family History Other CAD (coronary artery disease) Diabetes Social History Smoking and tobacco/nicotine status: never used tobacco/nicotine Alcohol intake: never Vitals/I&O/Wt Last Vital Signs Temp 97.5 F L 11/20/24 19:14 Pulse 110 H 11/21/24 01:00 Resp 18 11/21/24 01:00 BP 167/97 11/21/24 01:00 Pulse Ox 98 11/21/24 01:00 O2 Del Method Room Air 11/20/24 21:00 Weight last 48 hrs Weight 175 lb Physical Exam GI: OTHER: Abdomen is extremely distended, abdomen is tender especially in the lower abdomen. Her ventral abdominal hernia has 2 components the left portion is reducible the right portion is not reducible and is tender to palpation. Data 11/20/24 19:41 11/20/24 19:41 Micro: Microbiology 11/20/24 19:50 Blood Culture - Preliminary Blood SPECIMEN COLLECTED 11/20/24 19:41 Blood Culture - Preliminary Blood SPECIMEN COLLECTED A&P Assessment and plan (1) Incisional hernia: (2) Small bowel obstruction: (3) Ventral hernia with bowel obstruction: Plan I had extensive discussion with the patient regarding her presentation. I do agree with radiologist assessment that there is possibility of the small obstruction being caused by her abdominal wall hernia. Unfortunately I cannot offer surgical intervention in our institution as I do not have the possibility of completing reconstruction of this lower abdominal wall hernia as it most likely will require bridging abdominal wall with absorbable mesh, as in the lower abdomen the abdominal wall appears to be almost completely absent. The case was discussed with the outside hospital where the patient had been previously admitted, they had reviewed previous imaging and consider that it may be stable from previous. This differs from my examination and radiology assessment. I did have extensive discussion with the patient and family members while there is a small chance that NG tube decompression will resolve her SBO, I think at this point this is unlikely. In the case of requiring surgical intervention she will need reconstruction of her abdominal wall during the procedure in order to close her. I cannot provide this service at the moment. Recommendation will be that the patient is referred to higher level of care and patient and family member agree with his assessment. I have discussed the case with ER provider PDMP PDMP Reviewed: Not Reviewed Coding Level of Care Code Acute Code for Chg Fwd Diagnoses Incisional hernia K43.2 Small bowel obstruction K56.609 Ventral hernia with bowel obstruction K43.6
--- NOTE | 2024-11-21 01:34 | ECG_ITS ---
[facility] Date: 2024-11-21 Pat Name: Jane Castillo Department: Room: Gender: Female Medical Front Desk Coordinator: : 1945 Requested By: Faustina Patricio Order Number: [id number] Reading MD: Measurements Intervals [place] Rate: 112 P: 0 MT: 0 QRS: 108 QRSD: 140 T: -32 QT: 367 QTc: 501 Interpretive Statements ATRIAL FLUTTER/TACHYCARDIA WITH RAPID VENTRICULAR RESPONSE RIGHT AXIS DEVIATION [QRS AXIS > 100] INTRAVENTRICULAR CONDUCTION DELAY [130+ ms QRS DURATION] SEPTAL MYOCARDIAL INFARCTION , OF INDETERMINATE AGE [40+ ms Q WAVE IN V1/V2] [email or web address]
== END 2024-11-21 04:15 | disposition short-term general hospital (02) ==
PROVIDERS: Emergency Medicine; Emergency Provider Emergency Medicine; PCP Nurse Practitioner
DX: K56.609 Unspecified intestinal obstruction, unspecified as to partial versus complete obstruction (principal); I48.20 Chronic atrial fibrillation, unspecified; N39.0 Urinary tract infection, site not specified; K43.6 Other and unspecified ventral hernia with obstruction, without gangrene; N28.9 Disorder of kidney and ureter, unspecified; E86.0 Dehydration; Z11.52 Encounter for screening for COVID-19; Z95.1 Presence of aortocoronary bypass graft; I25.10 Atherosclerotic heart disease of native coronary artery without angina pectoris; E11.22 Type 2 diabetes mellitus with diabetic chronic kidney disease; I13.0 Hypertensive heart and chronic kidney disease with heart failure and stage 1 through stage 4 chronic kidney disease, or unspecified chronic kidney disease; N18.30 Chronic kidney disease, stage 3 unspecified; I50.9 Heart failure, unspecified
CPT/HCPCS: 36415; 71045; 74018; 74177; 80053; 81001; 83605; 83690; 83880; 84484; 85025; 86140; 87040; 87077; 87086; 87186; 87637; 93005; 96374; 96375; 96376; 99285; J0692; J2060; J2270; J2405; J7030; J9999